=== PATIENT | female | born 1985 | race African-American/Black ===

== ENCOUNTER 2016-04-02 17:01 | Emergency (ER) | payer OTHER ==
[2016-04-02] MEDS ORDERED: FLUCONAZOLE 100 MG TABLET PO STA (17:23)
[2016-04-02] MEDS ORDERED: FLUCONAZOLE 100 MG TABLET PO ONE (17:26)
== END 2016-04-02 17:31 | disposition home or self-care (01) ==
DX: B37.3 Candidiasis of vulva and vagina (principal)
CPT/HCPCS: 99283; A9270

== ENCOUNTER 2016-08-09 06:47 | Emergency (ER) | payer OTHER ==
[2016-08-09] MEDS ORDERED: cefTRIAXone 1 GM in SODIUM CHLORIDE 0.9% MINIBAG 100 ML IV STA (08:57)
[2016-08-09] MEDS ORDERED: cefTRIAXone 1 GM VIAL ONE (09:01)
[2016-08-09] MEDS ORDERED: SODIUM CHLORIDE 0.9% 1,000 ML IV ONE (09:03)
== END 2016-08-09 11:14 | disposition home or self-care (01) ==
DX: O23.11 Infections of bladder in pregnancy, first trimester (principal); Z3A.13 13 weeks gestation of pregnancy; R11.2 Nausea with vomiting, unspecified

== ENCOUNTER 2017-10-30 15:27 | Emergency (ER) | payer OTHER ==
[2017-10-30 16:09] LABS: BASOPHILS % (AUTO) 0.6 %; EOSINOPHILS # (AUTO) 0.1 10^3/uL (0.0-0.7); EOSINOPHILS % (AUTO) 0.7 %; HGB - HEMOGLOBIN 11.8 g/dL (12.0-16.0); LYMPHOCYTES # (AUTO) 2.1 10^3/uL (1.5-3.5); LYMPHOCYTES % (AUTO) 27.5 %; MEAN CORPUSCULAR HEMOGLOBIN 27.6 pg (27.0-31.0); MEAN CORPUSCULAR HGB CONC 32.1 g/dL (32.0-36.0); MEAN PLATELET VOLUME 6.6 fL (7.9-10.8); MONOCYTES # (AUTO) 0.6 10^3/uL (0.0-1.0); MONOCYTES % (AUTO) 7.4 %; NEUTROPHILS # (AUTO) 4.8 10^3/uL (1.5-6.6); NEUTROPHILS % (AUTO) 63.8 %; PLT - PLATELET COUNT 323 10^3/uL (130-450); RED BLOOD COUNT 4.27 10^6/uL (4.20-5.40); RED CELL DISTRIBUTION WIDTH 13.4 % (12.0-15.0); WHITE BLOOD COUNT 7.5 x10^3/uL (4.8-10.8)
[2017-10-30 16:24] LABS: ALBUMIN 3.9 g/dL (3.2-5.5); ALBUMIN/GLOBULIN RATIO 1.1 (1.0-2.2); BILIRUBIN,TOTAL 0.5 mg/dL (0.2-1.0); CALCIUM 8.6 mg/dL (8.5-10.3); CREATININE 0.9 mg/dL (0.4-1.0); TOTAL PROTEIN 7.4 g/dL (6.7-8.2)
[2017-10-30 17:21] LABS: GLUCOSE, URINE (UA) NEGATIVE (NEGATIVE); KETONES,URINE (UA) 15 mg/dL (NEGATIVE); LEUKOCYTE ESTERASE, URINE NEGATIVE (NEGATIVE); NITRITE,URINE NEGATIVE (NEGATIVE); OCCULT BLOOD,URINE LARGE (NEGATIVE); PROTEIN,URINE 30 mg/dL (NEGATIVE); UROBILINOGEN,URINE 1 (NORMAL) E.U./dL (NORMAL)
[2017-10-30 17:37] LABS: BILIRUBIN,URINE NEGATIVE (NEGATIVE); CLARITY,URINE HAZY (CLEAR); HCG UR QUAL POSITIVE; ICTOTEST,URINE NEGATIVE
[2017-10-30 17:43] LABS: BACTERIA,URINE Rare /HPF (None Seen); RBC,URINE TNTC /HPF (0-5); SQUAMOUS EPITHELIAL CELL,UR MANY Squamous (<= Few)
--- NOTE | 2017-10-30 17:43 | ED Physician Documentation ---
PD HPI FEMALE - Stated complaint Stated Complaint: FEM - Chief complaint Chief Complaint: Abd Pain - History obtained from History obtained from: Patient, Family - History of Present Illness Timing - onset: Today Timing - duration: Days (1) Timing - details: Abrupt onset Pain level max: 0 Pain level max: 0 Associated symptoms: Vaginal bleeding (cramping earlier and heavy bleeding this am. Now resolved). 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) Recently seen: Not recently seen Review of Systems Ten Systems: 10 systems reviewed and negative Constitutional: denies: Fever, Chills Ears: denies: Ear pain Nose: denies: Rhinorrhea / runny nose, Congestion Throat: denies: Sore throat Respiratory: denies: Cough GI: denies: Abdominal Pain, Nausea, Vomiting, Diarrhea : denies: Dysuria, Frequency, Hesitancy Skin: denies: Rash Musculoskeletal: denies: Neck pain, Back pain Neurologic: denies: Headache PD PAST MEDICAL HISTORY - Past Medical History 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: Other Derm: Eczema - Past Surgical History Past Surgical History: No - Present Medications Home Medications: Ambulatory Orders Medication Instructions Recorded Confirmed Nitrofurantoin [Macrobid] 100 mg PO BID #10 capsule 08/09/16 - Allergies Allergies/Adverse Reactions: Allergies Allergy/AdvReac Type Severity Reaction Status Date / Time No Known Drug Allergies Allergy Verified 03/15/15 17:15 - Social History Does the pt smoke?: No Smoking Status: Never smoker Does the pt drink ETOH?: No Does the pt have substance abuse?: No - Immunizations Immunizations are current?: Yes - POLST Patient has POLST: No PD ED PE NORMAL - Vitals Vital signs reviewed: Yes - General General: Alert and oriented X 3, No acute distress - HEENT HEENT: Moist mucous membranes - Neck Neck: Supple, no meningeal sign - Cardiac Cardiac: RRR, Strong equal pulses - Respiratory Respiratory: No respiratory distress, Clear bilaterally - Abdomen Abdomen: Soft, Non tender, Non distended - Female Female : Pt declined - Back Back: No spinal TTP - Derm Derm: Warm and dry - Extremities Extremities: No edema - Neuro Neuro: Alert and oriented X 3 - Psych Psych: Normal mood, Normal affect Results - Vitals Vitals: Vital Signs - 24 hr 10/30/17 10/30/17 10/30/17 15:39 17:49 18:50 Temperature 36.6 C Heart Rate 83 69 67 Respiratory 18 14 14 Rate Blood Pressure 129/79 136/97 H 123/87 H O2 Saturation 99 97 100 Oxygen O2 Source Room air - Labs Labs: Laboratory Tests 10/30/17 10/30/17 10/30/17 16:05 16:05 16:05 WBC 7.5 RBC 4.27 Hgb 11.8 L Hct 36.8 L MCV 86.0 MCH 27.6 MCHC 32.1 RDW 13.4 Plt Count 323 MPV 6.6 L Neut # (Auto) 4.8 Lymph # (Auto) 2.1 [place] # (Auto) 0.6 Eos # (Auto) 0.1 Baso # (Auto) 0.0 Absolute Nucleated RBC 0.00 Nucleated RBC % 0.1 Sodium 136 Potassium 3.8 Chloride 102 Carbon Dioxide 26 Anion Gap 8.0 BUN 8 Creatinine 0.9 Estimated GFR (MDRD) 88 L Glucose 105 H Calcium 8.6 Total Bilirubin 0.5 AST 29 ALT 21 Alkaline Phosphatase 83 Total Protein 7.4 Albumin 3.9 Globulin 3.5 Albumin/Globulin Ratio 1.1 Lipase 19 L HCG, Quant 120.33 Urine Color Urine Clarity Urine pH Ur Specific [place] Urine Protein Urine Glucose (UA) Urine Ketones Urine Occult Blood Urine Nitrite Urine Bilirubin Urine Urobilinogen Ur Leukocyte Esterase Urine RBC Urine WBC Ur Squamous Epith Cells Urine Bacteria Ur Microscopic Review Urine Culture Comments Urine HCG, Qual 10/30/17 17:16 WBC RBC Hgb Hct MCV MCH MCHC RDW Plt Count MPV Neut # (Auto) Lymph # (Auto) [place] # (Auto) Eos # (Auto) Baso # (Auto) Absolute Nucleated RBC Nucleated RBC % Sodium Potassium Chloride Carbon Dioxide Anion Gap BUN Creatinine Estimated GFR (MDRD) Glucose Calcium Total Bilirubin AST ALT Alkaline Phosphatase Total Protein Albumin Globulin Albumin/Globulin Ratio Lipase HCG, Quant Urine Color YELLOW Urine Clarity HAZY Urine pH 6.0 Ur Specific [place] >=1.030 H Urine Protein 30 H Urine Glucose (UA) NEGATIVE Urine Ketones 15 H Urine Occult Blood LARGE H Urine Nitrite NEGATIVE Urine Bilirubin NEGATIVE Urine Urobilinogen 1 (NORMAL) Ur Leukocyte Esterase NEGATIVE Urine RBC TNTC H Urine WBC 6-10 H Ur Squamous Epith Cells MANY Squamous H Urine Bacteria Rare Ur Microscopic Review INDICATED Urine Culture Comments NOT INDICATED Urine HCG, Qual POSITIVE - Rads (name of study) pelvic US Radiology: Prelim report reviewed, EMP read contemporaneously, See rad report ( No evidence for an intrauterine . 2. No evidence for an ectopic . An ectopic is not excluded. Follow-up is recommended. Correlate with serial beta hCGs. 3. Minimal simple-appearing free fluid seen in the right adnexa adjacent to the right ovary. ) PD MEDICAL DECISION MAKING - ED course Complexity details: reviewed results, re-evaluated patient, considered differential, d/w patient, d/w family ED course: Patient is a 31-year-old female who presents to the emergency department with vaginal bleeding today. She does have a minimally elevated hCG. No evidence of IUP on ultrasound. Ectopic precautions given at bedside the patient and family. Likely that she is miscarrying. We will have her follow-up closely with her doctor for further evaluation and care. Patient counseled regarding signs and symptoms for which I believe and urgent re-evaluation would be necessary. Patient with good understanding of and agreement to plan and is comfortable going home at this time This document was made in part using voice recognition software. While efforts are made to proofread this document, sound alike and grammatical errors may occur. - Sepsis Event Vital Signs: Vital Signs - 24 hr 10/30/17 10/30/17 10/30/17 15:39 17:49 18:50 Temperature 36.6 C Heart Rate 83 69 67 Respiratory 18 14 14 Rate Blood Pressure 129/79 136/97 H 123/87 H O2 Saturation 99 97 100 Oxygen O2 Source Room air Departure - Departure Disposition: 01 Home, Self Care Clinical Impression: Vaginal bleeding affecting early Condition: Good Instructions: ED Miscarriage Poss Follow-Up: your,doctor in 3 days for repeat HCG. [Other] Comments: Return if you worsen. Your HCG is 120 today. You should have this repeated in 3 -4 days with your doctor. Return especially for increased pain, bleeding, or fevers. Discharge Date/Time: 10/30/17 18:56
[2017-10-30 18:52] VITALS: BP 123/87
--- NOTE | 2017-10-30 19:01 | Ultrasound Report ---
Procedure Date: 10/30/2017 Accession Number: [id number] / [id number] Procedure: US - OB First Trimester CPT Code: FULL RESULT: EXAM: FIRST TRIMESTER OBSTETRIC ULTRASOUND (Less than 11 weeks) EXAM DATE: 10/30/2017 06:24 PM. CLINICAL HISTORY: Positive , vaginal bleeding. LMP: Not certain, question mid-August. COMPARISONS: None. TECHNIQUE: Transabdominal and transvaginal ultrasound examination with static image documentation. ASSESSMENT: MATERNAL STRUCTURES: Uterus: Anteverted. Unremarkable. Endometrium measures 1 cm. No evidence for an intrauterine . Cervix: Closed. Right Ovary/Adnexa: Unremarkable. The ovary measures 3.8 x 2.2 x 2.4 cm, volume 10.5 cc. Left Ovary/Adnexa: Unremarkable. The ovary measures 3.1 x 1.5 x 2.7 cm, volume 6.6 cc. Free Fluid: Minimal simple-appearing free fluid seen in the right adnexa adjacent to the right ovary. Other: No evidence for an adnexal mass. IMPRESSION: 1. No evidence for an intrauterine . 2. No evidence for an ectopic . An ectopic is not excluded. Follow-up is recommended. Correlate with serial beta hCGs. 3. Minimal simple-appearing free fluid seen in the right adnexa adjacent to the right ovary. RADIA
== END 2017-10-30 18:56 | disposition home or self-care (01) ==
LOC: ED 15:27
DX: O20.9 Hemorrhage in early pregnancy, unspecified (principal)
CPT/HCPCS: 36415; 76801; 76817; 80053; 81001; 81003; 81025; 83690; 84702; 85025; 87086; 99283

== ENCOUNTER 2017-12-12 12:09 | Emergency (ER) | payer OTHER ==
--- NOTE | 2017-12-12 14:34 | ED Physician Documentation ---
PD HPI CHEST PAIN - Stated complaint Stated Complaint: CHEST PAIN - Chief complaint Chief Complaint: Cardiac - History obtained from History obtained from: Patient - History of Present Illness Timing - onset: Today (She was at work, she had just started eating lunch and she felt very sharp anterior central chest pain that was nonradiating. Lasted about 6 minutes. She was a little hot and short of breath while it happened and it resolved on its own. She never had this before. She feels fine now and has felt fine for the last couple of hours.) Review of Systems Constitutional: denies: Fever, Chills Cardiac: reports: Chest pain / pressure. 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 - Past Surgical History Past Surgical History: No - Present Medications Home Medications: Ambulatory Orders Medication Instructions Recorded Confirmed metFORMIN [Glucophage] 500 mg BID 12/12/17 12/12/17 - Allergies Allergies/Adverse Reactions: Allergies Allergy/AdvReac Type Severity Reaction Status Date / Time No Known Drug Allergies Allergy Verified 03/15/15 17:15 - Social History Does the pt smoke?: No Smoking Status: Never smoker Does the pt drink ETOH?: No Does the pt have substance abuse?: No - Immunizations Immunizations are current?: Yes - POLST Patient has POLST: No PD ED PE NORMAL - Vitals Vital signs reviewed: Yes - General General: Alert and oriented X 3, No acute distress - HEENT HEENT: Pharynx benign - Neck Neck: Supple, no meningeal sign, No bony TTP - Cardiac Cardiac: RRR, No murmur - Respiratory Respiratory: No respiratory distress, Clear bilaterally - Abdomen Abdomen: Non tender - Extremities Extremities: No edema, No calf tenderness / cord - Neuro Neuro: Alert and oriented X 3, Normal speech Results - Vitals Vitals: Vital Signs - 24 hr 12/12/17 12:12 Temperature 36.7 C Heart Rate 86 Respiratory 16 Rate Blood Pressure 137/92 H O2 Saturation 98 Oxygen O2 Source Room air - EKG (time done) 1217 Rate: Rate (enter#) (76) Rhythm: NSR [place]: Normal Intervals: Normal [place] QRS: Normal Ischemia: Normal ST segments Computer interpretation: Agree with computer PD MEDICAL DECISION MAKING - ED course ED course: 32-year-old woman with fleeting chest pain while eating with a nonischemic EKG and normal chest x-ray. She has been pain-free for several hours and no further workup is necessary. I considered pulmonary embolism in this patient. Clinically the pretest probability of pulmonary embolism is less than 15%. I applied to the PERC rules as follows: The patient's age is under 50, heart rate less than 100, oxygen saturation greater than 94%, the patient does not have a history of DVT or PE. Patient has no recent trauma or surgery. The patient has no hemoptysis. The patient is not on exogenous estrogens. The patient does not have clinical signs suggesting DVT. As such the patient ruled out for pulmonary embolism by PERC criteria. - Sepsis Event Vital Signs: Vital Signs - 24 hr 12/12/17 12:12 Temperature 36.7 C Heart Rate 86 Respiratory 16 Rate Blood Pressure 137/92 H O2 Saturation 98 Oxygen O2 Source Room air Departure - Departure Disposition: Home, Self Care Clinical Impression: Chest pain Qualifiers: Chest pain type: precordial pain Qualified Code(s): R07.2 - Precordial pain Condition: Good Record reviewed to determine appropriate education?: Yes Instructions: ED Chest Pain NonCardiac Comments: Call your doctor to arrange a follow-up appointment, make the next available appointment. In the interim, return anytime if worse or if new symptoms develop. Your blood pressure was elevated today on check into the emergency department. This does not mean that you have hypertension, it is a common phenomenon to come to the emergency department and have elevated blood pressure. I recommend that you see your primary care physician within the week to have it rechecked when you are feeling better. Forms: Activity restrictions
[2017-12-12 14:50] VITALS: BP 118/82
--- NOTE | 2017-12-12 14:58 | XRAY Report ---
Reason: sternal chest pain today Procedure Date: 12/12/2017 Accession Number: [id number] / [id number] Procedure: XR - Chest 2 View X-Ray CPT Code: 06405 FULL RESULT: EXAM: CHEST RADIOGRAPHY EXAM DATE: 12/12/2017 01:59 PM. CLINICAL HISTORY: Sternal chest pain today. COMPARISON: None. TECHNIQUE: 2 views. FINDINGS: Lungs/Pleura: No focal opacities evident. No pleural effusion. No pneumothorax. Normal volumes. Mediastinum: Heart and mediastinal contours are unremarkable. IMPRESSION: No evidence of acute thoracic process RADIA
== END 2017-12-12 14:50 | disposition home or self-care (01) ==
LOC: ED 12:09
DX: R07.2 Precordial pain (principal); R03.0 Elevated blood-pressure reading, without diagnosis of hypertension
CPT/HCPCS: 71046; 93005; 99283

== ENCOUNTER 2018-03-12 20:30 | Emergency (ER) | payer OTHER ==
--- NOTE | 2018-03-12 21:18 | ED Physician Documentation ---
PD HPI FEMALE - Stated complaint Stated Complaint: FEM - Chief complaint Chief Complaint: Abd Pain - History obtained from History obtained from: Patient - History of Present Illness Timing - onset: How many months ago (4-5) Timing - duration: Months Timing - details: Gradual onset, Still present, Waxing and waning Associated symptoms: Vaginal pain (intermittent cramping), Vaginal bleeding. No: Vaginal discharge Contributing factors: Depo (had depo shot 5 months ago and had regular bleeding after it. Opted to not get next Depo shot 2 months ago. Has these episodes regularly with her having cramping pains. She was told by her PCP that her periods would normalize but the irrregularity has persisted.). No: , Exposed to STD OB-PCT History: Other (PCOS) Review of Systems Constitutional: denies: Fever, Chills Nose: denies: Rhinorrhea / runny nose, Congestion Throat: denies: Sore throat Respiratory: denies: Cough GI: denies: Vomiting, Diarrhea : reports: Dysuria. denies: Hesitancy Skin: denies: Rash, Lesions Musculoskeletal: denies: Neck pain, Back pain Neurologic: reports: Generalized weakness. denies: Focal weakness, Numbness PD PAST MEDICAL HISTORY - Past Medical History Cardiovascular: None Respiratory: None Neuro: None PCT: Other Derm: Eczema - Past Surgical History Past Surgical History: No - Present Medications Home Medications: Ambulatory Orders Medication Instructions Recorded Confirmed metFORMIN [Glucophage] 500 mg BID 12/12/17 12/12/17 Naproxen 375 mg PO BID #20 tablet 03/12/18 Norethindrone AC-Eth Estradiol 1 each PO DAILY #1 packet 03/12/18 [Loestrin 21 1-20 Tablet] - Allergies Allergies/Adverse Reactions: Allergies Allergy/AdvReac Type Severity Reaction Status Date / Time No Known Drug Allergies Allergy Verified 03/12/18 20:45 - Social History Does the pt smoke?: No Smoking Status: Never smoker Does the pt drink ETOH?: No Does the pt have substance abuse?: No - Immunizations Immunizations are current?: Yes - POLST Patient has POLST: No PD ED PE NORMAL - Vitals Vital signs reviewed: Yes - General General: Alert and oriented X 3, No acute distress - HEENT HEENT: Pharynx benign - Neck Neck: Supple, no meningeal sign, No adenopathy - Cardiac Cardiac: RRR, No murmur - Respiratory Respiratory: Clear bilaterally - Female Female : Deferred - Rectal Rectal: Deferred - Back Back: No CVA TTP - Derm Derm: Normal color, Warm and dry - Neuro Neuro: Alert and oriented X 3, licensed audiologist 2-12 intact Eye Opening: Spontaneous Motor: Obeys Commands Verbal: Oriented GCS Score: 15 Results - Vitals Vitals: Oxygen O2 Source Room air - Labs Labs: Laboratory Tests 03/12/18 03/12/18 03/12/18 21:10 21:10 21:10 WBC 7.3 RBC 4.40 Hgb 12.0 Hct 36.9 L MCV 83.9 MCH 27.3 MCHC 32.6 RDW 12.9 Plt Count 356 MPV 7.1 L Neut # (Auto) 3.9 Lymph # (Auto) 2.6 [place] # (Auto) 0.6 Eos # (Auto) 0.1 Baso # (Auto) 0.1 Absolute Nucleated RBC 0.00 Nucleated RBC % 0.0 PT 11.6 INR 1.0 APTT 30.5 Sodium 137 Potassium 3.7 Chloride 105 Carbon Dioxide 26 Anion Gap 6.0 BUN 8 Creatinine 1.0 Estimated GFR (MDRD) 77 L Glucose 100 Calcium 9.0 Total Bilirubin 0.4 AST 19 ALT 18 Alkaline Phosphatase 91 Total Protein 7.5 Albumin 3.8 Globulin 3.7 Albumin/Globulin Ratio 1.0 Lipase 27 Urine Color Urine Clarity Urine pH Ur Specific [place] Urine Protein Urine Glucose (UA) Urine Ketones Urine Occult Blood Urine Nitrite Urine Bilirubin Urine Urobilinogen Ur Leukocyte Esterase Ur Microscopic Review Urine Culture Comments Urine HCG, Qual Blood Type Antibody Screen 03/12/18 03/12/18 21:10 21:50 WBC RBC Hgb Hct MCV MCH MCHC RDW Plt Count MPV Neut # (Auto) Lymph # (Auto) [place] # (Auto) Eos # (Auto) Baso # (Auto) Absolute Nucleated RBC Nucleated RBC % PT INR APTT Sodium Potassium Chloride Carbon Dioxide Anion Gap BUN Creatinine Estimated GFR (MDRD) Glucose Calcium Total Bilirubin AST ALT Alkaline Phosphatase Total Protein Albumin Globulin Albumin/Globulin Ratio Lipase Urine Color YELLOW Urine Clarity CLEAR Urine pH 5.5 Ur Specific [place] >=1.030 H Urine Protein NEGATIVE Urine Glucose (UA) NEGATIVE Urine Ketones NEGATIVE Urine Occult Blood TRACE-INTA Urine Nitrite NEGATIVE Urine Bilirubin NEGATIVE Urine Urobilinogen 0.2 (NORMAL) Ur Leukocyte Esterase NEGATIVE Ur Microscopic Review NOT INDICATED Urine Culture Comments NOT INDICATED Urine HCG, Qual NEGATIVE Blood Type A POSITIVE Antibody Screen NEGATIVE Departure - Departure Disposition: 01 Home, Self Care Clinical Impression: Dysfunctional uterine bleeding Condition: Stable Record reviewed to determine appropriate education?: Yes Instructions: ED Bleed Irregular Vaginal Follow-Up: NYASIA VAN MD [Primary Care Provider] - Prescriptions: Naproxen 375 mg PO BID #20 tablet Norethindrone AC-Eth Estradiol [Loestrin 21 1-20 Tablet] 1 each PO DAILY #1 packet Comments: Drink lots of fluids. Stay well-hydrated. Naproxen twice daily for the next 7- 10 days with food to help with some of the crampy pains. Take the oral contraceptive for a month or 2 to help try to reset your periods. Initially take 2 of the tablets out of the packet daily for the first 3 days and then finished the packet once a day as normal. Recheck if the bleeding has not decreased or stopped over the next week and it does not reset to a normal. Over the next month or 2. Discharge Date/Time: 03/12/18 22:15
[2018-03-12 21:20] LABS: BASOPHILS # (AUTO) 0.1 10^3/uL (0.0-0.1); BASOPHILS % (AUTO) 0.8 %; EOSINOPHILS # (AUTO) 0.1 10^3/uL (0.0-0.7); LYMPHOCYTES # (AUTO) 2.6 10^3/uL (1.5-3.5); LYMPHOCYTES % (AUTO) 36.4 %; MEAN CORPUSCULAR HEMOGLOBIN 27.3 pg (27.0-31.0); MEAN CORPUSCULAR HGB CONC 32.6 g/dL (32.0-36.0); MEAN CORPUSCULAR VOLUME 83.9 fL (81.0-99.0); MEAN PLATELET VOLUME 7.1 fL (7.9-10.8); MONOCYTES # (AUTO) 0.6 10^3/uL (0.0-1.0); MONOCYTES % (AUTO) 7.8 %; NEUTROPHILS # (AUTO) 3.9 10^3/uL (1.5-6.6); PLT - PLATELET COUNT 356 10^3/uL (130-450); RED CELL DISTRIBUTION WIDTH 12.9 % (12.0-15.0); WHITE BLOOD COUNT 7.3 x10^3/uL (4.8-10.8)
[2018-03-12 21:25] LABS: PT - PROTHROMBIN TIME 11.6 secs (9.9-12.6)
[2018-03-12 21:34] LABS: ALBUMIN 3.8 g/dL (3.2-5.5); BILIRUBIN,TOTAL 0.4 mg/dL (0.2-1.0); TOTAL PROTEIN 7.5 g/dL (6.7-8.2)
[2018-03-12] MEDS ORDERED: IBUPROFEN 600 MG TABLET PO STA (21:46)
[2018-03-12 21:57] LABS: BILIRUBIN,URINE NEGATIVE (NEGATIVE); GLUCOSE, URINE (UA) NEGATIVE (NEGATIVE); KETONES,URINE (UA) NEGATIVE (NEGATIVE); LEUKOCYTE ESTERASE, URINE NEGATIVE (NEGATIVE); NITRITE,URINE NEGATIVE (NEGATIVE); OCCULT BLOOD,URINE TRACE-INTA (NEGATIVE); PH,URINE 5.5 PH (5.0-7.5); PROTEIN,URINE NEGATIVE (NEGATIVE); UROBILINOGEN,URINE 0.2 (NORMAL) E.U./dL (NORMAL)
[2018-03-12 22:00] LABS: CLARITY,URINE CLEAR (CLEAR)
[2018-03-12 22:03] LABS: HCG UR QUAL NEGATIVE
[2018-03-12 22:31] VITALS: BP 128/78
== END 2018-03-12 22:15 | disposition home or self-care (01) ==
LOC: ED 20:30
DX: N93.8 Other specified abnormal uterine and vaginal bleeding (principal)
CPT/HCPCS: 36415; 80053; 81003; 81025; 83690; 85025; 85610; 85730; 86850; 86900; 86901; 99283; A9270; 81001; 87086

== ENCOUNTER 2019-11-28 14:54 | Emergency (ER) | payer OTHER ==
[2019-11-28 15:28] LABS: BASOPHILS # (AUTO) 0.1 10^3/uL (0.0-0.1); BASOPHILS % (AUTO) 0.6 %; EOSINOPHILS # (AUTO) 0.1 10^3/uL (0.0-0.7); EOSINOPHILS % (AUTO) 0.9 %; HGB - HEMOGLOBIN 11.6 g/dL (12.0-16.0); LYMPHOCYTES # (AUTO) 2.8 10^3/uL (1.5-3.5); LYMPHOCYTES % (AUTO) 33.1 %; MEAN CORPUSCULAR HEMOGLOBIN 27.8 pg (27.0-31.0); MEAN CORPUSCULAR HGB CONC 32.8 g/dL (32.0-36.0); MEAN CORPUSCULAR VOLUME 84.9 fL (81.0-99.0); MEAN PLATELET VOLUME 9.1 fL (7.9-10.8); MONOCYTES # (AUTO) 0.6 10^3/uL (0.0-1.0); PLT - PLATELET COUNT 355 10^3/uL (130-450); RED BLOOD COUNT 4.17 10^6/uL (4.20-5.40); RED CELL DISTRIBUTION WIDTH 12.8 % (12.0-15.0); WHITE BLOOD COUNT 8.5 x10^3/uL (4.8-10.8)
[2019-11-28 15:38] LABS: INR 1.1 (0.8-1.2); PT - PROTHROMBIN TIME 12.9 secs (9.9-12.6)
[2019-11-28 15:42] LABS: ALBUMIN 3.6 g/dL (3.2-5.5); BILIRUBIN,TOTAL 0.3 mg/dL (0.2-1.0); CALCIUM 9.5 mg/dL (8.5-10.3); CREATININE 0.9 mg/dL (0.4-1.0); TOTAL PROTEIN 7.3 g/dL (6.7-8.2)
[2019-11-28 15:46] LABS: PARTIAL THROMBOPLASTIN TIME 31.3 secs (24.9-33.3)
[2019-11-28 16:55] LABS: BILIRUBIN,URINE NEGATIVE (NEGATIVE); GLUCOSE, URINE (UA) NEGATIVE (NEGATIVE); KETONES,URINE (UA) NEGATIVE (NEGATIVE); LEUKOCYTE ESTERASE, URINE NEGATIVE (NEGATIVE); NITRITE,URINE NEGATIVE (NEGATIVE); OCCULT BLOOD,URINE NEGATIVE (NEGATIVE); PROTEIN,URINE NEGATIVE (NEGATIVE); UROBILINOGEN,URINE 0.2 (NORMAL) E.U./dL (NORMAL)
[2019-11-28 16:59] LABS: CLARITY,URINE CLEAR (CLEAR); HCG UR QUAL POSITIVE
--- NOTE | 2019-11-28 17:26 | ED Physician Documentation ---
History of Present Illness - Stated complaint Stated Complaint: FEMALE - Chief complaint Chief Complaint: General - History obtained from History obtained from: Patient - Additonal information Additional information: Patient comes emergency department complaining of bright red blood with stooling. She states that she has not had any abdominal pain. She has had pain around her anal area. She has been constipated because she is on vitamins. Patient is 8 weeks . Patient denies any nausea or vomiting. No lightheadedness or dizziness. No bleeding in between bowel movements. No vaginal bleeding. No other complaints at this time. Review of Systems Ten Systems: 10 systems reviewed and negative Constitutional: reports: Reviewed and negative Eyes: reports: Reviewed and negative Ears: reports: Reviewed and negative Nose: reports: Reviewed and negative Throat: reports: Reviewed and negative Cardiac: reports: Reviewed and negative Respiratory: reports: Reviewed and negative GI: reports: Bloody / black stool : reports: Reviewed and negative Skin: reports: Reviewed and negative Musculoskeletal: reports: Reviewed and negative Neurologic: reports: Reviewed and negative Psychiatric: reports: Reviewed and negative Endocrine: reports: Reviewed and negative Immunocompromised: reports: Reviewed and negative PD PAST MEDICAL HISTORY - Past Medical History Cardiovascular: None Respiratory: None Neuro: None Endocrine/Autoimmune: None GI: None 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), Other : None HEENT: None Psych: None Musculoskeletal: None Derm: Eczema Other Past Medical History: 8 weeks - Past Surgical History Past Surgical History: No - Present Medications Home Medications: Ambulatory Orders Medication Instructions Recorded Confirmed metFORMIN [Glucophage] 500 mg BID 12/12/17 12/12/17 Naproxen 375 mg PO BID #20 tablet 03/12/18 Norethindrone AC-Eth Estradiol 1 each PO DAILY #1 packet 03/12/18 [Loestrin 21 1-20 Tablet] - Allergies Allergies/Adverse Reactions: Allergies Allergy/AdvReac Type Severity Reaction Status Date / Time No Known Drug Allergies Allergy Verified 11/28/19 15:05 - Social History Does the pt smoke?: No Smoking Status: Never smoker Does the pt drink ETOH?: No Does the pt have substance abuse?: No - Immunizations Immunizations are current?: Yes - POLST Patient has POLST: No PD ED PE NORMAL - Vitals Vital signs reviewed: Yes - General General: Alert and oriented X 3, No acute distress - HEENT HEENT: Atraumatic, PERRL, EOMI, Moist mucous membranes - Neck Neck: Supple, no meningeal sign - Cardiac Cardiac: RRR, No murmur - Respiratory Respiratory: No respiratory distress, Clear bilaterally - Abdomen Abdomen: Soft, Non tender, Non distended - Derm Derm: Normal color, Warm and dry, No rash - Extremities Extremities: No deformity, No edema, No calf tenderness / cord - Neuro Neuro: Alert and oriented X 3, Other (Grossly intact) - Psych Psych: Normal mood, Normal affect Results - Vitals Vitals: Oxygen O2 Source Room air - Labs Labs: Laboratory Tests 11/28/19 11/28/19 11/28/19 15:21 15:21 15:21 WBC 8.5 RBC 4.17 L Hgb 11.6 L Hct 35.4 L MCV 84.9 MCH 27.8 MCHC 32.8 RDW 12.8 Plt Count 355 MPV 9.1 Neut # (Auto) 5.0 Lymph # (Auto) 2.8 [place] # (Auto) 0.6 Eos # (Auto) 0.1 Baso # (Auto) 0.1 Absolute Nucleated RBC 0.00 Nucleated RBC % 0.0 PT 12.9 H INR 1.1 APTT 31.3 Sodium 135 Potassium 3.8 Chloride 102 Carbon Dioxide 22 Anion Gap 11.0 BUN 6 Creatinine 0.9 Estimated GFR (MDRD) 86 L Glucose 102 H Calcium 9.5 Total Bilirubin 0.3 AST 20 ALT 20 Alkaline Phosphatase 63 Total Protein 7.3 Albumin 3.6 Globulin 3.7 Albumin/Globulin Ratio 1.0 Lipase 29 Urine Color Urine Clarity Urine pH Ur Specific [place] Urine Protein Urine Glucose (UA) Urine Ketones Urine Occult Blood Urine Nitrite Urine Bilirubin Urine Urobilinogen Ur Leukocyte Esterase Ur Microscopic Review Urine Culture Comments Urine HCG, Qual 11/28/19 16:40 WBC RBC Hgb Hct MCV MCH MCHC RDW Plt Count MPV Neut # (Auto) Lymph # (Auto) [place] # (Auto) Eos # (Auto) Baso # (Auto) Absolute Nucleated RBC Nucleated RBC % PT INR APTT Sodium Potassium Chloride Carbon Dioxide Anion Gap BUN Creatinine Estimated GFR (MDRD) Glucose Calcium Total Bilirubin AST ALT Alkaline Phosphatase Total Protein Albumin Globulin Albumin/Globulin Ratio Lipase Urine Color YELLOW Urine Clarity CLEAR Urine pH 6.0 Ur Specific [place] 1.025 Urine Protein NEGATIVE Urine Glucose (UA) NEGATIVE Urine Ketones NEGATIVE Urine Occult Blood NEGATIVE Urine Nitrite NEGATIVE Urine Bilirubin NEGATIVE Urine Urobilinogen 0.2 (NORMAL) Ur Leukocyte Esterase NEGATIVE Ur Microscopic Review NOT INDICATED Urine Culture Comments NOT INDICATED Urine HCG, Qual POSITIVE PD MEDICAL DECISION MAKING - ED course Complexity details: reviewed results, re-evaluated patient, considered differential, d/w patient ED course: Discussed with patient that she most likely either has hemorrhoids or an anal fissure. We have discussed home management of symptoms and the self-limited nature of these conditions. I have advised patient regarding [id number] hemorrhoidal remedies. We have also discussed how to soften stools naturally with a higher fiber diet. Patient already has plans to follow-up with OB. We have discussed the usual indications for return. Departure - Departure Disposition: 01 Home, Self Care Clinical Impression: Hematochezia Condition: Stable Instructions: ED Fissure Anal Ch, ED Hemorrhoids Discharge Date/Time: 11/28/19 17:31
[2019-11-28 17:31] VITALS: BP 120/73
== END 2019-11-28 17:31 | disposition home or self-care (01) ==
LOC: ED 14:54
DX: O99.611 Diseases of the digestive system complicating pregnancy, first trimester (principal); K92.1 Melena; Z3A.08 8 weeks gestation of pregnancy
CPT/HCPCS: 36415; 80053; 81001; 81003; 81025; 83690; 85025; 85610; 85730; 87086; 99282; 99283

== ENCOUNTER 2020-01-04 16:18 | Emergency (ER) | payer OTHER ==
--- NOTE | 2020-01-04 17:56 | ED Physician Documentation ---
History of Present Illness - Stated complaint Stated Complaint: PREG, SPOTTING - Chief complaint Chief Complaint: Abd Pain - History obtained from History obtained from: Patient - History of Present Illness Timing: Today Pain level max: 0 Pain level now: 0 - Additonal information Additional information: Patient states that she is . She is unsure how far along she is. She saw her doctor at the [facility], she states that her hCG was approximately 12,000 at that time. They repeated it 2 days later, it was down to 9000. She states that she was told "sometimes it goes back up". Today she started having spotting. No abdominal or pelvic pain. 4 para 2 Review of Systems Constitutional: denies: Fever, Chills Cardiac: denies: Chest pain / pressure Respiratory: denies: Cough GI: denies: Vomiting, Diarrhea Skin: denies: Rash Musculoskeletal: denies: Neck pain, Back pain Neurologic: denies: Headache PD PAST MEDICAL HISTORY - Past Medical History Past Medical History: Yes Cardiovascular: None Respiratory: None Neuro: None Endocrine/Autoimmune: None GI: None PIPEMAN: Miscarriage(s), Other : None HEENT: None Psych: None Musculoskeletal: None Derm: Eczema - Past Surgical History Past Surgical History: No - Present Medications Home Medications: Ambulatory Orders Medication Instructions Recorded Confirmed metFORMIN [Glucophage] 500 mg BID 12/12/17 12/12/17 Pnv No.95/Ferrous Fum/Folic AC 1 each PO DAILY 01/04/20 01/04/20 [ Formula] - Allergies Allergies/Adverse Reactions: Allergies Allergy/AdvReac Type Severity Reaction Status Date / Time No Known Drug Allergies Allergy Verified 01/04/20 16:30 - Social History Does the pt smoke?: No Smoking Status: Never smoker Does the pt drink ETOH?: No Does the pt have substance abuse?: No - Immunizations Immunizations are current?: Yes - POLST Patient has POLST: No PD ED PE NORMAL - Vitals Vital signs reviewed: Yes - General General: Alert and oriented X 3, No acute distress - HEENT HEENT: Moist mucous membranes - Neck Neck: Supple, no meningeal sign - Cardiac Cardiac: RRR - Respiratory Respiratory: No respiratory distress, Clear bilaterally - Abdomen Abdomen: Soft, Non tender, Non distended - Derm Derm: Warm and dry - Extremities Extremities: No edema - Neuro Neuro: Alert and oriented X 3 - Psych Psych: Normal mood, Normal affect Results - Vitals Vitals: Vital Signs - 24 hr 01/04/20 01/04/20 16:26 18:15 Temperature 36.7 C 37.0 C Heart Rate 88 75 Respiratory 12 18 Rate Blood Pressure 125/68 108/74 O2 Saturation 100 100 Oxygen O2 Source Room air - Labs Labs: Laboratory Tests 01/04/20 16:44 HCG, Quant 1544.00 PD MEDICAL DECISION MAKING - ED course Complexity details: reviewed results, re-evaluated patient, considered differential, d/w patient ED course: Bedside ultrasound reveals a uterus that has an irregular small gestational sac, approximately 5 weeks 3 days, no pole. Her hCG is down to 1500. Appears to be having a miscarriage. We will have her follow-up with the [facility] for further care. She will need to ensure that her hCG trends to 0 as well. No evidence of ectopic . No pain. Patient counseled regarding signs and symptoms for which I believe and urgent re-evaluation would be necessary. Patient with good understanding of and agreement to plan and is comfortable going home at this time This document was made in part using voice recognition software. While efforts are made to proofread this document, sound alike and grammatical errors may occur. Departure - Departure Disposition: 01 Home, Self Care Clinical Impression: Miscarriage Condition: Good Instructions: ED Miscarriage Incom Follow-Up: TIMMY CHEUNG [Primary Care Provider] - Within 1 week Comments: It is important to follow your quantitative hCG until it reaches 0. We need to ensure that the miscarriage is passed. Follow-up with your doctor for further care. Discharge Date/Time: 01/04/20 18:54
[2020-01-04 18:15] VITALS: BP 108/74
== END 2020-01-04 18:54 | disposition home or self-care (01) ==
LOC: ED 16:18
DX: O03.9 Complete or unspecified spontaneous abortion without complication (principal)
CPT/HCPCS: 36415; 84702; 99283

== ENCOUNTER 2020-04-23 08:00 | Outpatient (CLI) | payer OTHER ==
[2020-04-23 17:22] LABS: MUDS CUTOFF CONCENTRATIONS CUTOFF CONC BELOW:
[2020-04-23 17:31] LABS: BILIRUBIN,URINE NEGATIVE (NEGATIVE); GLUCOSE, URINE (UA) NEGATIVE (NEGATIVE); KETONES,URINE (UA) NEGATIVE (NEGATIVE); LEUKOCYTE ESTERASE, URINE NEGATIVE (NEGATIVE); NITRITE,URINE NEGATIVE (NEGATIVE); OCCULT BLOOD,URINE NEGATIVE (NEGATIVE); PROTEIN,URINE NEGATIVE (NEGATIVE); UROBILINOGEN,URINE 0.2 (NORMAL) E.U./dL (NORMAL)
[2020-04-23 17:32] LABS: CLARITY,URINE CLOUDY (CLEAR)
[2020-04-23 17:41] LABS: RBC,URINE None Seen /HPF (0-5)
[2020-04-23 17:42] LABS: AMORPHOUS SEDIMENT,UR Marked /LPF; BACTERIA,URINE Rare /HPF (None Seen); SQUAMOUS EPITHELIAL CELL,UR FEW Squamous (<= Few)
[2020-04-23 17:43] LABS: AMPHETAMINE SCREEN,URINE NEGATIVE (NEGATIVE); BENZODIAZEPINES SCREEN, URINE NEGATIVE (NEGATIVE); COCAINE SCREEN URINE NEGATIVE (NEGATIVE); METHADONE SCREEN, URINE NEGATIVE (NEGATIVE); METHAMPHETAMINES SCREEN, URINE NEGATIVE (NEGATIVE); OPIATE SCREEN, URINE NEGATIVE (NEGATIVE); OXYCODONE SCREEN, URINE NEGATIVE (NEGATIVE); PROPOXYPHENE SCREEN, URINE NEGATIVE (NEGATIVE); TRICYCLIC ANTIDEPRESSANT,URINE NEGATIVE (NEGATIVE)
== END 2020-04-23 23:59 | disposition home or self-care (01) ==
LOC: LAB.R 08:00
PROVIDERS: ATTEND Nurse Practitioner Obstetrics & Gynecology
DX: Z32.01 Encounter for pregnancy test, result positive (principal)
CPT/HCPCS: 80306; 81001; 87086

== ENCOUNTER 2020-04-30 15:00 | Outpatient (CLI) | payer OTHER ==
--- NOTE | 2020-04-30 16:53 | Ultrasound Report ---
PROCEDURE: OB First Trimester w/TV INDICATIONS: POSITIVE TEST OUTSIDE/PRIOR DATING DATA: Last menstrual period (LMP): 03/09/2020. LMP-based estimated date of delivery (SHAYY): 12/14/2020. First dating scan (date and location): 04/30/2020. Estimated date of delivery (SHAYY) from first dating scan: 12/20/2020. TECHNIQUE: Real-time scanning was performed of the fetus and maternal pelvic organs, with image documentation. Endovaginal scanning was also performed to better visualize the fetus and maternal ovaries. COMPARISON: None FINDINGS: Embryo: Single live intrauterine is identified with crown-rump length measuring 7 mm corre sponding to 6 weeks 4 days. heart tones identified at 126 bpm. Measurement variability in dating: +/- 4 weeks by LMP, +/- 7 days by mean sac diameter (use before 6 weeks gestation if crown-rump length not able to be measured), +/- 5 days by crown-rump length (6-12 weeks gestation). Maternal organs: Ovaries demonstrate a right corpus luteal cyst measuring 30 x 22 x 30 mm. There is appearance of heterogeneous echogenicity in the posterior aspect of the cervix measuring 9 x 6 mm not well seen on all views. Trace appearance of fluid is noted adjacent to the left ovary.. IMPRESSION: 1. Single comparison ultrasound gestational age today of 6 weeks 4 days coarse 9 to ultrasound SHAYY of 12/20/2020. 2. Focal area of heterogeneous echogenicity within the region of the cervix. Fibroid cannot be exclud ed. However, it is not well seen on current exam and attention to this region on follow-up imaging is recommended. Reviewed by: Priscila Espinoza MD on 04/30/2020 4:52 PM PST Approved by: Priscila Espinoza MD on 04/30/2020 4:52 PM PST Station ID: [id number]
== END 2020-04-30 15:01 | disposition home or self-care (01) ==
LOC: DI 15:00
PROVIDERS: ATTEND Nurse Practitioner Obstetrics & Gynecology
DX: O99.891 Other specified diseases and conditions complicating pregnancy (principal); R93.89 Abnormal findings on diagnostic imaging of other specified body structures; Z3A.01 Less than 8 weeks gestation of pregnancy

== ENCOUNTER 2020-05-13 10:27 | Outpatient (CLI) | payer OTHER ==
[2020-05-13 10:53] LABS: BASOPHILS % (AUTO) 0.5 %; EOSINOPHILS % (AUTO) 0.5 %; HGB - HEMOGLOBIN 12.3 g/dL (12.0-16.0); LYMPHOCYTES # (AUTO) 2.3 10^3/uL (1.5-3.5); LYMPHOCYTES % (AUTO) 28.2 %; MEAN CORPUSCULAR HEMOGLOBIN 26.7 pg (27.0-31.0); MEAN CORPUSCULAR HGB CONC 31.9 g/dL (32.0-36.0); MEAN CORPUSCULAR VOLUME 83.9 fL (81.0-99.0); MEAN PLATELET VOLUME 8.8 fL (7.9-10.8); MONOCYTES # (AUTO) 0.6 10^3/uL (0.0-1.0); MONOCYTES % (AUTO) 7.4 %; NEUTROPHILS % (AUTO) 63.1 %; PLT - PLATELET COUNT 364 10^3/uL (130-450); RED CELL DISTRIBUTION WIDTH 13.4 % (12.0-15.0)
[2020-05-13 21:47] LABS: TRICHOMONAS VAGINALIS DNA NEGATIVE (NEGATIVE)
[2020-05-14 13:42] LABS: HEPATITIS B SURFACE ANTIGEN NON-REACTIVE (NON-REACTIVE); HEPATITIS C ANTIBODY NON-REACTIVE (NON-REACTIVE)
[2020-05-14 14:57] LABS: HIV AG/AB 4TH GEN NON-REACTIVE (NON-REACTIVE)
== END 2020-05-13 10:28 | disposition home or self-care (01) ==
LOC: LAB 10:27
PROVIDERS: ATTEND Advanced Practice Midwife
DX: Z34.00 Encounter for supervision of normal first pregnancy, unspecified trimester (principal); Z36.89 Encounter for other specified antenatal screening
CPT/HCPCS: 36415; 81599; 85025; 86592; 86762; 86787; 86803; 86850; 86900; 86901; 87340; 87389; 87491; 87591; 87661

== ENCOUNTER 2020-05-30 08:18 | Emergency (ER) | payer OTHER ==
[2020-05-30] MEDS ORDERED: SODIUM CHLORIDE 0.9% 1,000 ML IV STA (08:38)
[2020-05-30] MEDS ORDERED: METOCLOPRAMIDE 10 MG/2 ML VIAL IVP STA (08:38)
[2020-05-30] MEDS ORDERED: diphenhydrAMINE INJ 50 MG/ML VIAL IVP STA (08:38)
--- NOTE | 2020-05-30 08:43 | ED Physician Documentation ---
PD HPI HEADACHE - Stated complaint Stated Complaint: HEADACHE - Chief complaint Chief Complaint: Neuro - History obtained from History obtained from: Patient - Additional information Additional information: at 10 weeks gestation has had 6 days of fairly constant bitemporal headache associated with very mild light sensitivity but no neck stiffness or fevers. There is no nausea. No pelvic pain, cramping, nor bleeding or fluid loss. No history of headaches per se, although I asked her if she tried anything for example Tylenol and her response was "Tylenol usually makes my headaches worse." When asked if she is under a lot of stress she says yes and agrees with the potential that her headache may be due to stress. 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: Miscarriage(s), Other : None HEENT: None Psych: None Musculoskeletal: None Derm: Eczema - Past Surgical History Past Surgical History: No - Present Medications Home Medications: Ambulatory Orders Medication Instructions Recorded Confirmed Pnv No.95/Ferrous Fum/Folic AC 1 each PO DAILY 01/04/20 05/30/20 [ Formula] Cyclobenzaprine [Flexeril] 10 mg PO TID PRN #20 tab 05/30/20 - Allergies Allergies/Adverse Reactions: Allergies Allergy/AdvReac Type Severity Reaction Status Date / Time No Known Drug Allergies Allergy Verified 05/30/20 08:21 - Social History Does the pt smoke?: No Smoking Status: Never smoker Does the pt drink ETOH?: No Does the pt have substance abuse?: No - Immunizations Immunizations are current?: Yes - POLST Patient has POLST: No PD ED PE NORMAL - Vitals Vital signs reviewed: Yes - General General: Alert and oriented X 3, No acute distress - HEENT HEENT: PERRL, EOMI - Neck Neck: Supple, no meningeal sign, No bony TTP - Abdomen Abdomen: Normal bowel sounds, Soft, Non tender, Other (Bedside ultrasound demonstrates single live intrauterine with a heart rate of 165) - Derm Derm: Normal color, Warm and dry - Extremities Extremities: No edema - Neuro Neuro: Alert and oriented X 3, unit manager 2-12 intact, No motor deficit, No sensory deficit, Normal speech Results - Vitals Vitals: Vital Signs - 24 hr 05/30/20 05/30/20 08:21 08:32 Temperature 37.1 C Heart Rate 84 88 Respiratory 16 16 Rate Blood Pressure 121/74 131/98 H O2 Saturation 98 99 Oxygen O2 Source Room air - Labs Labs: Laboratory Tests 05/30/20 05/30/20 08:45 08:45 WBC 8.8 RBC 4.26 Hgb 11.5 L Hct 34.9 L MCV 81.9 MCH 27.0 MCHC 33.0 RDW 13.8 Plt Count 325 MPV 8.9 Neut # (Auto) 5.5 Lymph # (Auto) 2.6 [place] # (Auto) 0.6 Eos # (Auto) 0.1 Baso # (Auto) 0.1 Absolute Nucleated RBC 0.00 Nucleated RBC % 0.0 Sodium 135 Potassium 3.8 Chloride 104 Carbon Dioxide 21 Anion Gap 10.0 BUN 5 L Creatinine 0.7 Estimated GFR (MDRD) 115 Glucose 111 H Calcium 9.1 Total Bilirubin 0.4 AST 17 ALT 14 Alkaline Phosphatase 60 Total Protein 7.1 Albumin 3.2 Globulin 3.9 Albumin/Globulin Ratio 0.8 L PD MEDICAL DECISION MAKING - ED course ED course: 34-year-old woman who presents with what sounds like a tension headache in . She is only 10 weeks so related conditions are considered but felt to be very unlikely. The history and physical is inconsistent with subarachnoid hemorrhage or meningitis. She felt much better after the administration of Reglan and Benadryl. Departure - Departure Disposition: 01 Home, Self Care Clinical Impression: Headache Qualifiers: Headache type: tension-type Headache chronicity pattern: acute headache Intractability: not intractable Qualified Code(s): G44.209 - Tension-type headache, unspecified, not intractable Condition: Good Record reviewed to determine appropriate education?: Yes Instructions: ED Headache Tension Prescriptions: Cyclobenzaprine [Flexeril] 10 mg PO TID PRN #20 tab PRN Reason: Spasms Comments: Follow-up with your OB and primary care physicians. Return if worsening or if new symptoms develop.
[2020-05-30 08:50] LABS: BASOPHILS # (AUTO) 0.1 10^3/uL (0.0-0.1); BASOPHILS % (AUTO) 0.6 %; EOSINOPHILS # (AUTO) 0.1 10^3/uL (0.0-0.7); EOSINOPHILS % (AUTO) 0.6 %; HCT - HEMATOCRIT 34.9 % (37.0-47.0); HGB - HEMOGLOBIN 11.5 g/dL (12.0-16.0); LYMPHOCYTES # (AUTO) 2.6 10^3/uL (1.5-3.5); LYMPHOCYTES % (AUTO) 29.2 %; MEAN CORPUSCULAR VOLUME 81.9 fL (81.0-99.0); MEAN PLATELET VOLUME 8.9 fL (7.9-10.8); MONOCYTES # (AUTO) 0.6 10^3/uL (0.0-1.0); MONOCYTES % (AUTO) 6.5 %; NEUTROPHILS # (AUTO) 5.5 10^3/uL (1.5-6.6); NEUTROPHILS % (AUTO) 62.9 %; PLT - PLATELET COUNT 325 10^3/uL (130-450); RED BLOOD COUNT 4.26 10^6/uL (4.20-5.40); RED CELL DISTRIBUTION WIDTH 13.8 % (12.0-15.0); WHITE BLOOD COUNT 8.8 x10^3/uL (4.8-10.8)
[2020-05-30 09:02] LABS: ALBUMIN 3.2 g/dL (3.2-5.5); ALBUMIN/GLOBULIN RATIO 0.8 (1.0-2.2); BILIRUBIN,TOTAL 0.4 mg/dL (0.2-1.0); CALCIUM 9.1 mg/dL (8.5-10.3); CREATININE 0.7 mg/dL (0.4-1.0); POTASSIUM 3.8 mmol/L (3.5-5.0); TOTAL PROTEIN 7.1 g/dL (6.7-8.2)
[2020-05-30 10:01] VITALS: BP 121/78
== END 2020-05-30 10:15 | disposition home or self-care (01) ==
LOC: ED 08:18
DX: O99.351 Diseases of the nervous system complicating pregnancy, first trimester (principal); G44.209 Tension-type headache, unspecified, not intractable; O09.521 Supervision of elderly multigravida, first trimester; Z3A.10 10 weeks gestation of pregnancy
CPT/HCPCS: 36415; 80053; 85025; 96361; 96374; 99283; 99284; J1200; J2765

== ENCOUNTER 2020-06-15 12:27 | Emergency (ER) | payer OTHER ==
[2020-06-15 12:36] VITALS: BP 108/80
--- NOTE | 2020-06-15 12:43 | ED Physician Documentation ---
History of Present Illness - Stated complaint Stated Complaint: RASH - Chief complaint Chief Complaint: General - History obtained from History obtained from: Patient - Additonal information Additional information: 2 months of itchy scaly rash the right side of the neck. She is 13 weeks . She thinks it is from stress. 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), Other : None HEENT: None Psych: None Musculoskeletal: None Derm: Eczema - Past Surgical History Past Surgical History: No - Present Medications Home Medications: Ambulatory Orders Medication Instructions Recorded Confirmed Pnv No.95/Ferrous Fum/Folic AC 1 each PO DAILY 01/04/20 06/15/20 [ Formula] Cyclobenzaprine [Flexeril] 10 mg PO TID PRN #20 tab 05/30/20 06/15/20 Triamcinolone 0.1% Oint 1 gm TOP BID #80 g 06/15/20 - Allergies Allergies/Adverse Reactions: Allergies Allergy/AdvReac Type Severity Reaction Status Date / Time No Known Drug Allergies Allergy Verified 06/15/20 12:43 - Social History Does the pt smoke?: No Smoking Status: Never smoker Does the pt drink ETOH?: No Does the pt have substance abuse?: No - Immunizations Immunizations are current?: Yes - POLST Patient has POLST: No PD ED PE NORMAL - Vitals Vital signs reviewed: Yes - General General: Alert and oriented X 3, No acute distress - Neck Neck: Other (palm sized area of eczema without superinfection on the right side of the low neck.) - Neuro Neuro: Alert and oriented X 3, Normal speech Results - Vitals Vitals: Vital Signs - 24 hr 06/15/20 12:33 Temperature 37 C Heart Rate 97 Respiratory 18 Rate Blood Pressure 108/80 O2 Saturation 99 Oxygen O2 Source Room air Departure - Departure Disposition: 01 Home, Self Care Clinical Impression: Eczema Qualifiers: Eczema type: unspecified Qualified Code(s): L30.9 - Dermatitis, unspecified Condition: Good Record reviewed to determine appropriate education?: Yes Instructions: ED Dermatitis Atopic Eczema Prescriptions: Triamcinolone 0.1% Oint 1 gm TOP BID #80 g Comments: Follow-up with your primary care physician, return for new or worsening symptoms.
== END 2020-06-15 12:55 | disposition home or self-care (01) ==
LOC: ED 12:27
DX: O99.711 Diseases of the skin and subcutaneous tissue complicating pregnancy, first trimester (principal); L30.9 Dermatitis, unspecified; Z3A.13 13 weeks gestation of pregnancy
CPT/HCPCS: 99282; 99283

== ENCOUNTER 2020-08-02 18:46 | Outpatient (CLI) | payer OTHER ==
--- NOTE | 2020-08-03 19:27 | Ultrasound Report ---
PROCEDURE: OB Detailed Eval INDICATIONS: SCREENING, SUPERVISION OF OUTSIDE/PRIOR DATING DATA: Last menstrual period (LMP): 03/09/2020. LMP-based estimated date of delivery (SHAYY): 12/14/2020. First dating scan (date and location): 04/30/2020. Estimated date of delivery (SHAYY) from first dating scan: 12/20/2020. TECHNIQUE: Real-time scanning was performed of the fetus, with image documentation and biometric measurements. COMPARISON: None. Findings: General: A single living intrauterine gestation is present. Presentation: Variable Placenta: Placental position is anterior, without previa. Amniotic fluid index: 18 cm, 81.7 percentile for gestational age. heart rate: 143 beats per minute. Maternal cervical canal: 3.86 cm long and is closed; normal length is 2.5 cm or more. biometrics: Biparietal diameter: 4.96 cm, 21 weeks, 0 day Head circumference: 18.3 cm, 20 weeks, 5 days Abdominal circumference: 16.7 cm, 21 weeks, 2 days Femur length: 3.4 cm, 20 weeks, 5 days Estimated gestational age from initial scan: 20 weeks, 0 day Composite gestational age from present scan: 20 weeks, 6 days Estimated weight and percentile: 392 g, 92.6 percentile. Measurement variability in biometric dating: +/- 10 days from 12-20 weeks gestation, +/- 2 weeks from 20-30 weeks gestation, +/- 3 weeks at 30 weeks gestation or later. Anatomic survey: Neuro: Ventricles are normal at less than 10 mm. Cisterna magna is normal at 3-11 mm. Cerebellum i s normal in size and morphology. Nuchal skin fold: Normal at less than 6 mm between 14 and 20 weeks gestational age. Face: Nose and lips, facial profile are normal. Spine: No evidence for spina bifida. Evaluation of spine is slightly limited due to position. Heart: 4-chambered heart is present, with normal ventricular outflow tracts. Diaphragm: Diaphragm is intact. Stomach: Left-sided stomach is present. Kidneys: No hydronephrosis. Normal is less than 5 mm in 2nd trimester, less than 7 mm in 3rd trimester. Cord: 3 vessel cord has orthotopic insertion. Bladder: Normal in size. Extremities: All 4 extremities are visualized. IMPRESSION: 1. Single live intrauterine with fetus in variable presentation. heart rate is 143 bp m. Normal amount of amniotic fluid. Normal growth. 2. Estimated weight is at 92.6 percentile. 3. Slightly Limited evaluation of spine due to position. Rest of anatomic survey is normal. Reviewed by: Asa Puente MD on 08/03/2020 7:26 PM PDT Approved by: Asa Puente MD on 08/03/2020 7:26 PM PDT Station ID: [id number]
== END 2020-08-02 18:47 | disposition home or self-care (01) ==
LOC: DI 18:46
PROVIDERS: ATTEND Advanced Practice Midwife
DX: Z34.00 Encounter for supervision of normal first pregnancy, unspecified trimester (principal); Z36.89 Encounter for other specified antenatal screening

== ENCOUNTER 2020-09-03 14:36 | Outpatient (CLI) | payer OTHER ==
--- NOTE | 2020-09-03 22:20 | Ultrasound Report ---
PROCEDURE: OB F/U or Repeat INDICATIONS: SUPERVISION OF OUTSIDE/PRIOR DATING DATA: Last menstrual period (LMP): 03/09/2020. LMP-based estimated date of delivery (SHAYY): 12/14/2020. First dating scan (date and location): 04/30/2020. Estimated date of delivery (SHAYY) from first dating scan: 12/20/2020. The below data below was generated using the ultrasound generated SHAYY of 12/20/2020 TECHNIQUE: Real-time scanning was performed of the fetus, with image documentation and biometric measurements. Endovaginal scanning: Performed COMPARISON: None. FINDINGS: General: A single living intrauterine gestation is present. Presentation: Transverse with head to maternal left Placenta: Placental position is anterior, without previa. Amniotic fluid index: 13.4 cm, 40th percentile for gestational age. Largest pocket is 5.7 cm heart rate: 150 beats per minute. Maternal cervical canal: Closed, 3.9 cm cm long; normal length is 2.5 cm or more. biometrics: Composite gestational age from present scan: 24 weeks 4 days Anatomy: spine is normal in appearance. The chest, stomach, and kidneys have a normal sarahy earance. Urinary bladder is unremarkable. Remainder of the anatomy [facility] but was adequately evaluated on the prior study. Other: Not applicable. IMPRESSION: Normal appearance of the spine with no sonographic evidence of dysraphism demonstrated. Single live intrauterine gestation with average ultrasound age of 24 weeks 4 days. Normal SHITAL. Reviewed by: Kevin Prado MD on 09/03/2020 10:19 PM PDT Approved by: Kevin Prado MD on 09/03/2020 10:19 PM PDT Station ID: [id number]
== END 2020-09-03 14:37 | disposition home or self-care (01) ==
LOC: DI 14:36
PROVIDERS: ATTEND Nurse Practitioner Obstetrics & Gynecology
DX: Z36.89 Encounter for other specified antenatal screening (principal)

== ENCOUNTER 2020-09-22 08:11 | Outpatient (CLI) | payer OTHER ==
[2020-09-22 09:21] LABS: HCT - HEMATOCRIT 30.2 % (37.0-47.0); HGB - HEMOGLOBIN 9.6 g/dL (12.0-16.0); MEAN CORPUSCULAR HEMOGLOBIN 27.4 pg (27.0-31.0); MEAN CORPUSCULAR HGB CONC 31.8 g/dL (32.0-36.0); MEAN CORPUSCULAR VOLUME 86.3 fL (81.0-99.0); MEAN PLATELET VOLUME 8.8 fL (7.9-10.8); RED BLOOD COUNT 3.5 10^6/uL (4.20-5.40); RED CELL DISTRIBUTION WIDTH 13.4 % (12.0-15.0); WHITE BLOOD COUNT 8.6 x10^3/uL (4.8-10.8)
== END 2020-09-22 08:12 | disposition home or self-care (01) ==
LOC: LAB 08:11
PROVIDERS: ATTEND Radiology Diagnostic Radiology
DX: Z34.90 Encounter for supervision of normal pregnancy, unspecified, unspecified trimester (principal)
CPT/HCPCS: 36415; 82950; 85027

== ENCOUNTER 2020-10-11 07:57 | Outpatient (CLI) | payer OTHER ==
[2020-10-11 08:23] LABS: GTT GLUCOSE,FASTING 99 mg/dL (70-100)
== END 2020-10-11 07:58 | disposition home or self-care (01) ==
LOC: LAB 07:57
PROVIDERS: ATTEND Advanced Practice Midwife
DX: O99.810 Abnormal glucose complicating pregnancy (principal)
CPT/HCPCS: 36415; 82951; 82952

== ENCOUNTER 2020-11-03 08:00 | Outpatient (CLI) | payer OTHER ==
[2020-11-03 17:47] LABS: HCT - HEMATOCRIT 31.6 % (37.0-47.0); HGB - HEMOGLOBIN 9.9 g/dL (12.0-16.0); MEAN CORPUSCULAR HGB CONC 31.3 g/dL (32.0-36.0); MEAN CORPUSCULAR VOLUME 86.3 fL (81.0-99.0); RED BLOOD COUNT 3.66 10^6/uL (4.20-5.40); RED CELL DISTRIBUTION WIDTH 13.7 % (12.0-15.0); WHITE BLOOD COUNT 8.4 x10^3/uL (4.8-10.8)
== END 2020-11-03 23:59 | disposition home or self-care (01) ==
LOC: LAB.WCP 08:00
PROVIDERS: ATTEND Advanced Practice Midwife
DX: O99.019 Anemia complicating pregnancy, unspecified trimester (principal)
CPT/HCPCS: 36415; 85027

== ENCOUNTER 2020-11-04 14:24 | Outpatient (CLI) | payer OTHER ==
--- NOTE | 2020-11-05 16:55 | Ultrasound Report ---
PROCEDURE: OB F/U or Repeat INDICATIONS: - UTERINE SIZE DATE DISCREPANCY OUTSIDE/PRIOR DATING DATA: Last menstrual period (LMP): 03/09/2020. LMP-based estimated date of delivery (SHAYY): 12/14/2020. First dating scan (date and location): 04/30/2020. Estimated date of delivery (SHAYY) from first dating scan: 12/20/2020. The below data below was generated using the above SHAYY of 12/20/2020 TECHNIQUE: Real-time scanning was performed of the fetus, with image documentation and biometric measurements. Endovaginal scanning: Not needed COMPARISON: Prior OB ultrasound studies for this . FINDINGS: General: A single living intrauterine gestation is present. Presentation: Vertex Placenta: Placental position is anterior, without previa. Amniotic fluid index: 11.9 cm, 27th percentile for gestational age. heart rate: 135 beats per minute. Maternal cervical canal: 3.5 cm long; normal length is 2.5 cm or more. biometrics: Biparietal diameter: 8.3 cm, 33 weeks 2 days Head circumference: 30.5 cm, 33 weeks 6 days Abdominal circumference: 28.9 cm, 33 weeks 0 days Femur length: 6.4 cm, 33 weeks 1 day Estimated gestational age from initial scan: 33 weeks 3 days. Composite gestational age from present scan: 33 weeks 2 days Estimated weight and percentile: 2129 g, 33 percentile Measurement variability in biometric dating: +/- 10 days from 12-20 weeks gestation, +/- 2 weeks from 20-30 weeks gestation, +/- 3 weeks at 30 weeks gestation or more. Other: Not applicable. IMPRESSION: Appropriate interval growth, delivery date projected to be centered on 12/20/2020. Normal amniotic fluid volume, anterior placenta, vertex presentation. Reviewed by: Gopi Green MD on 11/05/2020 4:53 PM PDT Approved by: Gopi Green MD on 11/05/2020 4:53 PM PDT Station ID: [id number]
== END 2020-11-04 14:25 | disposition home or self-care (01) ==
LOC: DI 14:24
PROVIDERS: ATTEND Advanced Practice Midwife
DX: O26.849 Uterine size-date discrepancy, unspecified trimester (principal); Z3A.33 33 weeks gestation of pregnancy

== ENCOUNTER 2020-11-24 07:00 | Outpatient (CLI) | payer OTHER | END 2020-11-24 23:59 | disposition home or self-care (01) | LOC: LAB 07:00 | PROVIDERS: ATTEND Advanced Practice Midwife | DX: Z36.85 Encounter for antenatal screening for Streptococcus B (principal) | CPT/HCPCS: 87797 ==

== ENCOUNTER 2020-11-27 16:41 | Emergency (ER) | payer OTHER ==
--- NOTE | 2020-11-27 16:56 | ED Physician Documentation ---
PD HPI ABD PAIN - Stated complaint Stated Complaint: CP - Chief complaint Chief Complaint: Cardiac - History obtained from History obtained from: Patient - Additional information Additional information: 35-year-old woman, G3, P2 at 32 weeks gestation with no personal or family history of heart disease or blood clots presents with resolved chest pain. Around noon today she developed substernal chest pain that subsequently radiated to the right chest and the back of the right arm. There was associated dyspnea. Pain is gone at this juncture. No pedal edema or calf pain. She is not short of breath anymore. There is no associated pelvic cramping, fluid loss, or bleeding. She still has motion noted. 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), Other : None HEENT: None Psych: None Musculoskeletal: None Derm: Eczema - Past Surgical History Past Surgical History: No - Present Medications Home Medications: Ambulatory Orders Medication Instructions Recorded Confirmed Pnv No.95/Ferrous Fum/Folic AC 1 each PO DAILY 01/04/20 06/15/20 [ Formula] Cyclobenzaprine [Flexeril] 10 mg PO TID PRN #20 tab 05/30/20 06/15/20 Triamcinolone 0.1% Oint 1 gm TOP BID #80 g 06/15/20 - Allergies Allergies/Adverse Reactions: Allergies Allergy/AdvReac Type Severity Reaction Status Date / Time No Known Drug Allergies Allergy Verified 11/27/20 16:45 - Social History Does the pt smoke?: No Smoking Status: Never smoker Does the pt drink ETOH?: No Does the pt have substance abuse?: No - Immunizations Immunizations are current?: Yes - POLST Patient has POLST: No PD ED PE NORMAL - Vitals Vital signs reviewed: Yes - General General: Alert and oriented X 3, No acute distress - HEENT HEENT: PERRL, EOMI - Neck Neck: Supple, no meningeal sign, No bony TTP - Cardiac Cardiac: RRR, No murmur - Respiratory Respiratory: No respiratory distress, Clear bilaterally - Abdomen Abdomen: Other (Gravid nontender uterus) - Extremities Extremities: No edema, No calf tenderness / cord - Neuro Neuro: Alert and oriented X 3, Normal speech Results - Vitals Vitals: Vital Signs - 24 hr 11/27/20 11/27/20 11/27/20 16:42 16:45 17:50 Temperature 36.5 C 36.5 C Heart Rate 103 H 94 82 Respiratory 16 21 16 Rate Blood Pressure 132/83 H 119/81 H 111/76 O2 Saturation 96 100 98 Oxygen O2 Source Room air - EKG (time done) 1653 Rate: Rate (enter#) (84) Rhythm: NSR [place]: Normal Intervals: Normal MO QRS: Normal Ischemia: Non specific changes. No: ST elevation c/w ischemia, ST depression - Labs Labs: Laboratory Tests 11/27/20 11/27/20 11/27/20 17:02 17:02 17:02 WBC 8.6 RBC 3.51 L Hgb 9.9 L Hct 29.9 L MCV 85.2 MCH 28.2 MCHC 33.1 RDW 14.2 Plt Count 230 MPV 9.7 Neut # (Auto) 6.0 Lymph # (Auto) 1.8 [place] # (Auto) 0.6 Eos # (Auto) 0.1 Baso # (Auto) 0.0 Absolute Nucleated RBC 0.00 Nucleated RBC % 0.0 Sodium 134 L Potassium 3.9 Chloride 105 Carbon Dioxide 20 L Anion Gap 9.0 BUN 6 Creatinine 0.6 Estimated GFR (MDRD) 137 Glucose 114 H Calcium 8.9 Troponin I High Sens 3.2 - Rads (name of study) 1v chest Radiology: EMP read contemporaneously (NAD) PD MEDICAL DECISION MAKING - ED course ED course: 35-year-old woman who is presents for evaluation of completely resolved chest pain with negative work-up here. No clinical evidence of DVT, PE, ACS, dissection. Departure - Departure Disposition: 01 Home, Self Care Clinical Impression: Atypical chest pain Qualifiers: Weeks of gestation: 32 weeks Qualified Code(s): Z3A.32 - 32 weeks gestation of Condition: Good Record reviewed to determine appropriate education?: Yes Instructions: ED Chest Pain NonCardiac Comments: Followup with web site specialist as routine. Return if pain recurs Discharge Date/Time: 11/27/20 17:50
[2020-11-27 17:06] LABS: BASOPHILS % (AUTO) 0.2 %; EOSINOPHILS # (AUTO) 0.1 10^3/uL (0.0-0.7); EOSINOPHILS % (AUTO) 0.7 %; HCT - HEMATOCRIT 29.9 % (37.0-47.0); HGB - HEMOGLOBIN 9.9 g/dL (12.0-16.0); LYMPHOCYTES # (AUTO) 1.8 10^3/uL (1.5-3.5); LYMPHOCYTES % (AUTO) 21.4 %; MEAN CORPUSCULAR HEMOGLOBIN 28.2 pg (27.0-31.0); MEAN CORPUSCULAR HGB CONC 33.1 g/dL (32.0-36.0); MEAN CORPUSCULAR VOLUME 85.2 fL (81.0-99.0); MEAN PLATELET VOLUME 9.7 fL (7.9-10.8); MONOCYTES # (AUTO) 0.6 10^3/uL (0.0-1.0); MONOCYTES % (AUTO) 7.2 %; NEUTROPHILS % (AUTO) 69.6 %; PLT - PLATELET COUNT 230 10^3/uL (130-450); RED BLOOD COUNT 3.51 10^6/uL (4.20-5.40); RED CELL DISTRIBUTION WIDTH 14.2 % (12.0-15.0); WHITE BLOOD COUNT 8.6 x10^3/uL (4.8-10.8)
[2020-11-27 17:18] LABS: CALCIUM 8.9 mg/dL (8.5-10.3); CREATININE 0.6 mg/dL (0.4-1.0); POTASSIUM 3.9 mmol/L (3.5-5.0)
--- NOTE | 2020-11-27 17:21 | XRAY Report ---
PROCEDURE: Chest 1 View X-Ray INDICATIONS: chest pain TECHNIQUE: One view of the chest was acquired. COMPARISON: 12/12/2012 chest x-ray FINDINGS: Surgical changes and devices: None. Lungs and pleura: No pleural effusions or pneumothorax. Lungs are clear. Mediastinum: Mediastinal contours appear normal. Heart size is normal. Bones and chest wall: No suspicious bony lesions. Overlying soft tissues appear unremarkable. IMPRESSION: No acute cardiopulmonary abnormality. Reviewed by: Madan White on 11/27/2020 4:20 PM YAJAIRA Approved by: Madan White on 11/27/2020 4:20 PM YAJAIRA Station ID: [id number]
[2020-11-27 17:52] VITALS: BP 111/76
--- NOTE | 2020-11-28 11:21 | PROCEDURE REPORT ---
- HPI Diagnosis/Indication for NST: Other (Presented to ED for Chest Pain.) Vital Signs Temperature 97.7 F 11/27/20 16:42 Heart Rate 103 H 11/27/20 16:42 Respiratory Rate 16 11/27/20 16:42 Blood Pressure 132/83 H 11/27/20 16:42 O2 Saturation 96 11/27/20 16:42 Temperature 97.7 F 11/27/20 17:50 Heart Rate 82 11/27/20 17:50 Respiratory Rate 16 11/27/20 17:50 Blood Pressure 111/76 11/27/20 17:50 O2 Saturation 98 11/27/20 17:50 - NST Procedure Patient had NST performed in ED due to Chest Pain. Patient is 36 2/7 weeks Gestation. NST: Baseline is 130 with Accelerations of 15X15. No decelerations. Moderate variability. 2 contractions during monitoring that patient did not notice. Reactive NST and Category I monitor strip. Keep all clinic appointments. Patient is scheduled on Sunday for next office visit.
== END 2020-11-27 17:50 | disposition home or self-care (01) ==
LOC: ED 16:41
DX: O26.893 Other specified pregnancy related conditions, third trimester (principal); R07.9 Chest pain, unspecified; Z3A.32 32 weeks gestation of pregnancy
CPT/HCPCS: 36415; 80048; 84484; 85025; 93005; 99284

== ENCOUNTER 2020-11-30 09:53 | Outpatient (CLI) | payer OTHER ==
[2020-11-30] MEDS ORDERED: FERRIC GLUCONATE 125 MG in SODIUM CHLORIDE 0.9% 100ML 100 ML IV ONE (10:08)
[2020-11-30 11:17] VITALS: BP 122/66
--- NOTE | 2020-11-30 12:28 | PROVIDER PROGRESS NOTE ---
- HPI Chief Complaint: Other Current : Current EDU 12/20/20 Gestation 37 Weeks and 1 Days 3 Para 2 Vital Signs Temperature 36.9 C 11/30/20 10:12 Heart Rate 78 11/30/20 10:12 Respiratory Rate 16 11/30/20 10:12 Blood Pressure 121/78 11/30/20 10:12 O2 Saturation 98 11/30/20 10:12 Temperature 36.9 C 11/30/20 11:15 Heart Rate 78 11/30/20 11:15 Respiratory Rate 16 11/30/20 11:15 Blood Pressure 122/66 11/30/20 11:15 O2 Saturation 98 11/30/20 10:12 - Procedures OB Procedure Performed: NST Diagnosis/Indication for NST: Gestational Diabetes NST Procedure: NST Procedure Start Date 11/30/20 Start Time 10:04 Stop Time 10:35 Vibroacoustic Stimulation Used No Patient States Movement Yes - Plan Plan: Gulshan presents to [facility] for NST and growth and SHITAL Secondary to gestational diabetes which has not been monitored. In addition, she is experiencing persistent fatigue and has documented anemia (H/H 9.9/29.7) and has consented to iron infusion today. NST performed 11/30/2020 NST read 11/30/2020 NST reactive. FHR baseline 130, moderate variability, + accels, no decels No contractions appreciated via tocometry Growth and SHITAL EFW 34%tile; SHITAL 7.7 Iron infusion complete. Pt tolerated infusion well. Pt released home with precautions. Continue with twice weekly NST and once weekly SHITAL. Pt verbalized understanding and agrees to above plan. Denies further questions or concerns at this time. FINAL DIAGNOSIS: Anemia complicated Gestational diabetes - unmanaged
--- NOTE | 2020-11-30 13:27 | Ultrasound Report ---
PROCEDURE: OB F/U or Repeat INDICATIONS: gestational DM OUTSIDE/PRIOR DATING DATA: Last menstrual period (LMP): 03/09/2020. LMP-based estimated date of delivery (SHAYY): 12/14/2020. First dating scan (date and location): 04/22/2020. Estimated date of delivery (SHAYY) from first dating scan: 12/20/2020. The below data below was generated using the SHAYY of 12/20/2020 TECHNIQUE: Real-time scanning was performed of the fetus, with image documentation and biometric measurements. Endovaginal scanning: None COMPARISON: 11/04/2020 FINDINGS: General: A single living intrauterine gestation is present. Presentation: Cephalic Placenta: Placental position is anterior, without previa. Amniotic fluid index: 7.7 cm heart rate: 148 beats per minute. Maternal cervical canal: Nonvisualized biometrics: Biparietal diameter: 8.9 cm, 36 week 1 day Head circumference: 32.1 cm, 36 week 2 day Abdominal circumference: 32.7 cm, 36 week 4 day Femur length: 7.0 cm, 35 week 5 day Estimated gestational age from initial scan: 37 week 1 day Composite gestational age from present scan: 36 week 1 day Estimated weight and percentile: 2900 g, 34 percentile Measurement variability in biometric dating: +/- 10 days from 12-20 weeks gestation, +/- 2 weeks from 20-30 weeks gestation, +/- 3 weeks at 30 weeks gestation or more. Other: Not applicable. IMPRESSION: Single live intrauterine corresponding with a 36 week 1 day gestation by current ultrasound . SHITAL 7.7 cm. Estimated weight 2900 g, 34th percentile Reviewed by: Navarro Marc MD on 11/30/2020 12:25 PM YAJAIRA Approved by: Navarro Marc MD on 11/30/2020 12:25 PM AKDT Station ID: [id number]
== END 2020-11-30 11:15 | disposition home or self-care (01) ==
LOC: WFO 09:53 → FBP 09:55 → WFO 11:15
PROVIDERS: ATTEND Nurse Practitioner Obstetrics & Gynecology
DX: O24.419 Gestational diabetes mellitus in pregnancy, unspecified control (principal); O99.013 Anemia complicating pregnancy, third trimester; Z3A.37 37 weeks gestation of pregnancy
CPT/HCPCS: 59025; 76816; 96374; J2916

== ENCOUNTER 2020-12-08 11:04 | Outpatient (CLI) | payer OTHER ==
[2020-12-08 11:25] VITALS: BP 93/63
[2020-12-08] MEDS ORDERED: FERRIC GLUCONATE 125 MG in SODIUM CHLORIDE 0.9% 100ML 100 ML IV ONE (11:45)
== END 2020-12-08 12:50 | disposition home or self-care (01) ==
LOC: WFO 11:04 → FBP 11:05 → WFO 12:50
PROVIDERS: ATTEND Nurse Practitioner Obstetrics & Gynecology
DX: O99.019 Anemia complicating pregnancy, unspecified trimester (principal); Z3A.00 Weeks of gestation of pregnancy not specified
CPT/HCPCS: 96365; J2916

== ENCOUNTER 2020-12-11 20:24 | Outpatient (CLI) | payer OTHER ==
[2020-12-11 20:46] VITALS: BP 126/78
--- NOTE | 2020-12-14 17:54 | PROCEDURE REPORT ---
- HPI Diagnosis/Indication for NST: Decreased movement Current EDU 12/20/20 Gestation 38 Weeks and 5 Days 5 Para 2 Vital Signs Temperature 37.3 C 12/11/20 20:31 Heart Rate 87 12/11/20 20:31 Respiratory Rate 18 12/11/20 20:31 Blood Pressure 126/78 12/11/20 20:31 O2 Saturation 100 12/11/20 20:31 Temperature 37.3 C 12/11/20 20:31 Heart Rate 87 12/11/20 20:31 Respiratory Rate 18 12/11/20 20:31 Blood Pressure 126/78 12/11/20 20:31 O2 Saturation 100 12/11/20 20:31 - NST Procedure NST Procedure Start Date 12/11/20 Start Time 20:35 Stop Time 21:05 Vibroacoustic Stimulation Used No Patient States Movement Yes - Results and Plan Plan: Gulshan presents to [facility] with c/o decreased movement. NST performed 12/11/2020 NST read 12/11/2020 NST reactive. FHR baseline 130s, moderate variability, + accels, no decels Contractions intermittent and mild are unappreciated by pt. Pt released home with precautions. IOL scheduled 12/14/2020
== END 2020-12-11 21:18 | disposition home or self-care (01) ==
LOC: FBP 20:24 → WFO 20:24
PROVIDERS: ATTEND Nurse Practitioner Obstetrics & Gynecology
DX: O36.8130 Decreased fetal movements, third trimester, not applicable or unspecified (principal); Z3A.38 38 weeks gestation of pregnancy
CPT/HCPCS: 59025

== ENCOUNTER 2020-12-14 07:59 | Inpatient (IN) | payer OTHER ==
[2020-12-14] MEDS ORDERED: CARBOPROST TROMETHAMINE 250 MCG/ML AMP IM PRN (08:40)
[2020-12-14] MEDS ORDERED: ONDANSETRON 4 MG/2 ML VIAL IVP PRN (08:40)
[2020-12-14] MEDS ORDERED: fentaNYL 100 MCG/2 ML VIAL IVP PRN (08:40)
[2020-12-14] MEDS ORDERED: METHYLERGONOVINE 0.2 MG/ML VIAL IM PRN (08:40)
[2020-12-14] MEDS ORDERED: ONDANSETRON ODT 4 MG TABLET TL PRN (08:40)
[2020-12-14] MEDS ORDERED: TRANEXAMIC ACID IN NACL 1,000 MG/100 ML BAG IV PRN (08:40)
[2020-12-14] MEDS ORDERED: ACETAMINOPHEN 325 MG TABLET PO PRN ×2 (08:40→19:45)
[2020-12-14] MEDS ORDERED: OXYTOCIN 10 UNIT/ML VIAL IM PRN (08:40)
[2020-12-14] MEDS ORDERED: SODIUM CHLORIDE FLUSH 0.9% 10 ML SYRINGE IVP PRN (08:40)
[2020-12-14] MEDS ORDERED: LIDOCAINE-MPF 1% 30 ML VIAL ID PRN (08:40)
[2020-12-14] MEDS ORDERED: OXYTOCIN/SODIUM CHLORIDE 500 ML IV PRN (08:40)
[2020-12-14] MEDS ORDERED: miSOPROStoL 200 MCG TABLET BC PRN (08:40)
[2020-12-14 09:18] LABS: BASOPHILS % (AUTO) 0.5 %; EOSINOPHILS % (AUTO) 0.5 %; HCT - HEMATOCRIT 31.9 % (37.0-47.0); HGB - HEMOGLOBIN 10.4 g/dL (12.0-16.0); LYMPHOCYTES # (AUTO) 2.1 10^3/uL (1.5-3.5); LYMPHOCYTES % (AUTO) 27.9 %; MEAN CORPUSCULAR HGB CONC 32.6 g/dL (32.0-36.0); MEAN CORPUSCULAR VOLUME 85.8 fL (81.0-99.0); MEAN PLATELET VOLUME 10.6 fL (7.9-10.8); MONOCYTES # (AUTO) 0.6 10^3/uL (0.0-1.0); MONOCYTES % (AUTO) 7.4 %; NEUTROPHILS # (AUTO) 4.8 10^3/uL (1.5-6.6); NEUTROPHILS % (AUTO) 63.2 %; PLT - PLATELET COUNT 261 10^3/uL (130-450); RED BLOOD COUNT 3.72 10^6/uL (4.20-5.40); RED CELL DISTRIBUTION WIDTH 14.5 % (12.0-15.0); WHITE BLOOD COUNT 7.7 x10^3/uL (4.8-10.8)
[2020-12-14] MEDS: miSOPROStoL 100 MCG TABLET BC SCH ×2 (10:30→14:35)
[2020-12-14] MEDS: LACTATED RINGERS 1,000 ML IV SCH ×2 (10:35→19:11)
--- NOTE | 2020-12-14 12:56 | HISTORY & PHYSICAL EXAMINATION ---
Admit History - Visit Reason Visit Reason: Other - : 5 Parity: 2 Premature: 0 Ectopic: 0 : 2 Care: positive: [facility] Risk/History: positive: None Complications This : positive: Gestational diabetes Smoking Status: Never smoker - Mother's Labs Mother's Blood Type: positive: A Mother's RH: positive: Positive GBS: positive: Group B Step Negative Rubella Status: positive: Immune Meds/Allgy - Home Medications Home Medications: Ambulatory Orders Medication Instructions Recorded Confirmed Pnv No.95/Ferrous Fum/Folic AC 1 each PO DAILY 01/04/20 06/15/20 [ Formula] Cyclobenzaprine [Flexeril] 10 mg PO TID PRN #20 tab 05/30/20 06/15/20 Triamcinolone 0.1% Oint 1 gm TOP BID #80 g 06/15/20 - Allergies Allergies/Adverse Reactions: Allergies Allergy/AdvReac Type Severity Reaction Status Date / Time No Known Drug Allergies Allergy Verified 11/27/20 16:45 Review of Systems - Constitutional Constitutional: denies: Fatigue, Fever, Chills, Malaise - Eyes Eyes: denies: Blurred vision, Spots in vision, Dipolpia - Cardiovascular Cariovascular: denies: Irregular heart rate, Palpitations, Chest pain, Edema - Respiratory Respiratory: denies: Cough, SOB at rest - Gastrointestinal Gastrointestinal: denies: Constipation, Diarrhea, Change in bowel habits - Integumentary Integumentary: denies: Rash, Pruritis - Neurological Neurological: denies: Headache Physical - Abdominal Exam Vital Signs: Temp Pulse Resp BP Pulse Ox 36.8 C 83 18 118/76 12/14/20 08:47 12/14/20 08:47 12/14/20 08:47 12/14/20 08:47 Contraction Frequency (min/apart): irregular Contraction Intensity: positive: Mild Uterine Resting Tone: positive: Soft - Monitoring Heart Rate Baseline: 140 Strip Review: positive: Category I - Presentation Presentation: positive: Vertex - Vaginal Exam Membranes: positive: Membranes intact - Speculum Exam Speculum Exam Performed: positive: No Plan for Labor - Plan For Labor I expect patient to be DC'd or transferred within 96 hours.: Yes Plan for Labor: Gulshan titus a 35yo @ 39.1wks gestation by 6.4wk U/S who presents today for medical induction of labor secondary to gestational diabetes. She denies vaginal bleeding, leakage of fluid or contractions. She reports +FM. She has been a patient of [facility] for the duration of her which has been complicated by anemia in which improved with iron supplementation and 2 iron infusions as well as her gestational diabetes diagnosis. She was unable to track her blood glucose secondary to difficulty obtaining necessary parts for her glucometer. Her previous pregnancies were uncomplicated and she states she has been following a healthy diet. She has had q 4 wk growth and AFIs which has remained WNL. She is supported by her partner Rob. She will be admitted to [facility] for medical induction of labor. She intends an unmedicated delivery. She denies questions or concerns at this time. Dating criteria: LMP 03/09/2021 Initial ultrasound @ 6.4wks NOT c/w LMP dating- SHAYY by 6.4wk U/S 12/20/2020 Serial exams - agree OB History: G1: 12/12/2001, @ 39.5wks, Female, [id number] G2: 02/12/2017, @ 39.6wks, female, [id number] G3: 11/2007, SAB <6wks G4: 01/2020, SAB <6wks G5: current Medications: PNV, ferrous sulfate Allergies: NKDA PMHx: Abnormal pap smear followed by LEEP - last pap 05/2020 neg, HPV high grade positive, 16/18 neg Surgical Hx: LEEP Social Hx: Never smoker, no ETOH or IVDA; Partner Rob (getting a divorce but is supportive) Family Hx: no significant course: PROBLEMS 1. Gestational diabetes- Unknown level of control secondary to no monitoring by pt. 2. Anemia of - 09/22- Hct 30.2- symptomatic FeSO4 initiated 10/07/20; repeat CBC-9.9/29.9 3. Hx LEEP - Pap nilm with HPV positive in 05/2020. Initial US: at 6.4wks not c/w LMP (12/14/2020) for FINAL SHAYY 12/20/2020. A pos/Rubella immune VZV immune Gentic testing: Declines FAS WNL w/ exception of incomplete visualization of spine. Anterior placenta, no previa. 3VC. SHITAL WNL. Size c/w dating (EFW 92%tile). Growth U/S 11/04 33%tile; SHITAL 11.9 Growth U/S 11/30 34%ile; SHITAL 7.7 Glucola-151 3HR 99 195,150,128 - diagnoses GDM Flu: 03/18/2020 per pt TDAP-09/21/2020 GBS at 36.2 weeks -Neg HSV: denies self & partner Breast pump Rx given: 09/21/2020 MOD: x2, both girls- BOY: Alf : Rob (getting a divorce. Will be support person). Desires to keep placenta. pp contraception: abstinence; Pelvic PT desired PAP: 05/13/2020-NILM (HPV high grade positive, 16/18 neg). History of abnormals (not within ASCCP guidelines per results on chart from [facility]) PHysical Exam: Normocephalic, atraumatic Heart RRR w/o M/G/R Lungs CTAB Abdomen gravid, soft and nontender. EFW 3400g FHR baseline 140s, moderate variability, + accels, no decels. Contractions palpate mild, intermittent with soft resting tone. Bilateral LE's trace edema Mood is good Assessment: 35yo @ 39.1wks gestation by 6.4wk U/S Gestational diabetes -unknown level of control secondary to no monitoring by pt. (consistently normal growth and SHITAL) FHR category I GBS neg Plan: Preinduction cervical ripening with 50mcg misoprostol q 4 hours Consider AROM with SVE if beach score is appropriate Continuous monitoring Encouraged ambulation and position changes. Jacuzzi PRN. Nitrous oxide PRN. Pt verbalized understanding and agrees to above plan. She denies further questions or concerns at this time.
--- NOTE | 2020-12-14 17:52 | PROVIDER PROGRESS NOTE ---
Labor Progress Note - Uterine Monitoring Uterine Monitoring Mode: positive: External toco Contraction Frequency (min/apart): 3-4 Contraction Intensity: positive: Strong Uterine Resting Tone: positive: Soft - Monitoring Monitor Mode: positive: External ultrasound Heart Rate Baseline: 130 Heart Rate Variability: positive: Moderate (6-25 bmp) Accelerations: positive: Present, 15x15 Decelerations: positive: None Strip Review: positive: Category I - Vaginal Exam Dilation (in cm): 5 Effacement (%): 85 Station: -3 Cervical Position: Posterior - Labor Progress Note Labor Progress Note/Additional Text: S: Breathing through contractions. Feeling increased pressure at the peak of contractions. Requests IV pain management at this time and once received she states she does feel much better. Supported by her partner at the bedside. O: FHR baseline 130s, moderate variability, intermittent periods of minimal variability but overall reassuring, + accels, no decels SVE 5/85/-3, posterior. Vertex. AROM moderate amount of clear fluid A: 35yo @ 39.1wks gestation by 6.4wk U/S Gestational diabetes - unknown control secondary absence of tracking FHR Category I at present GBS neg P: Stop misoprostol. Expectantly manage labor at this time secondary to onset of active labor. Nitrous oxide PRN. Jacuzzi PRN. Anticipate .
[2020-12-14] MEDS ORDERED: WITCH HAZEL/GLYCERIN 1 PAD TOP PRN (19:44)
[2020-12-14] MEDS ORDERED: HYDROCORTISONE 1% CREAM 28 GM TUBE PR PRN (19:44)
--- NOTE | 2020-12-14 19:53 | DELIVERY NOTE ---
Delivery Note - Labor Labor: positive: Induced by ARM - Infant Delivery Method Delivery Method: positive: Spontaneous vaginal delivery - Cervical Ripening Method Cervical Ripening Method: positive: Misoprostil - Presentation Presentation: positive: Vertex, JONI - left occiput anterior - Nuchal Cord Nuchal Cord: positive: None - Amniotic Fluid Description Amniotic Fluid Description: positive: Clear - Episiotomy Type Episiotomy Type: positive: None - Laceration Laceration: positive: 1st degree, Perineal - Suture Suture Type: positive: Vicryl Suture Size: positive: 2-0 - Delivery Outcome Delivery Outcome: positive: Livebirth - [place]: positive: Placed in direct skin contact with mother, Stimulated, Warmed, [place] used sex: positive: Male - Cord Cord: positive: 3 vessels - Placenta Placenta: positive: Intact, Spontaneous - Estimated Blood Loss Estimated Blood Loss (in cc): 250 - Post Delivery Events Post Delivery Events: positive: No post delivery events - Delivery Comments (Free Text/Narrative) Delivery Comments (Free Text/Narrative): Labor: This 35yo @ 39.1wks gestation by 6.4wk U/S presented to [facility] on 12/14/2020 @ 0800 for medical induction of labor secondary to gestational diabetes with unknown control secondary to no tracking. She received 2 doses of 50mcg BC misoprostol for preinduction cervical ripening. She progressed to 5/85/-3 and posterior and AROM occurred at 1741 and was noted to be a moderate amount of clear fluid. FHR pattern demonstrated Category I pattern with intermittent periods of Category II however remained reassuring overall. Normal labor course. Pt progressed to c/c/+1 @ 1905. : Normal of viable male infant on 12/14/2020 @ 1910. No nuchal cord. The was placed on maternal abdomen, stimulated, dried, and placed skin to skin. 's were 8/9 at 1 and 5 minutes respectively. Pitocin administered via IV for hemostasis. The umbilical cord was allowed to stop pulsating at which time it was doubly clamped by CNM and cut by FOB. 3VC. Cord blood was obtained. Fundal massage and gentle cord traction applied for active management of the third stage. Placenta delivered spontaneously and intact at 1915. EBL 250mL. Fourth stage: Uterine fundus firm and there is no excessive bleeding. The perineum, vagina, and cervix were inspected and noted to have 1st degree perineal laceration which was repaired using a 2-[address]-1 needle in standard fashion and under sterile conditions. Vaginal examination following repair was done. Tissues well approximated. Family bonding well. Both mother and baby were left in stable condition.
[2020-12-15] MEDS: IBUPROFEN 800 MG TABLET PO SCH ×5 (06:05→18:19)
[2020-12-15] MEDS: ACETAMINOPHEN 500 MG TABLET PO PRN ×3 (06:06→22:37)
--- NOTE | 2020-12-15 10:14 | PROVIDER PROGRESS NOTE ---
Subjective - Subjective Subjective: S: Bonding well with baby. without difficulty and she states he seems to be latching very well. She states her bleeding seems like a moderate menstrual cycle and denies clotting. States her cramping is mild but consistent and is improved with ibuprofen and tylenol however she did not take it yesterday but did early this morning and it seemed to help. Denies pain at perineum. She feels tired but was able to get some sleep last night. O: BP 113/74, T 36.9, HR 87, RR 18 Heart RRR w/o M/G/R, lungs CTAB, abdomen soft and nontender with fundus firm at U-1, perinuem intact, light lochia rubra, bilateral LE's no edema, mood is good. A: 35yo -->P3 PPD#1 s/p TSVD of viable male 1st degree perineal laceration - intact A1GDM P: Continue routine pp care and medications. Evaluate for discharge home tomorrow morning. Pt verbalized understanding and agrees to above plan. She denies further questions or concerns at this time. Objective - Vital Signs/Intake & Output Vital Signs: Vital Signs x48h Temp Pulse Resp BP Pulse Ox 12/15/20 04:13 36.9 C 87 18 113/74 99 Intake & Output: Intake & Output 12/12/20 12/13/20 12/14/20 12/15/20 23:59 23:59 23:59 23:59 Intake Total 1177.50 Output Total 400 Balance 777.50 - Lab Results Fish Bones: 12/14/20 08:30 12/14/20 08:30 Other Labs: Lab Results x24hrs 12/14/20 Range/Units 08:30 Blood Type A POSITIVE Antibody Screen NEGATIVE
[2020-12-15] MEDS: DOCUSATE SODIUM 100 MG CAPSULE PO SCH ×2 (12:06→21:02)
[2020-12-16] MEDS: IBUPROFEN 800 MG TABLET PO SCH (00:44)
[2020-12-16 09:09] VITALS: BP 110/68
--- NOTE | 2020-12-16 10:29 | Discharge Plan ---
Discharge Plan Problem Reviewed?: Yes Disposition: Home, Self Care Condition: Good Diet: Regular Activity Restrictions: No Restrictions Shower Restrictions: No Driving Restrictions: No Weight Bearing: Full Weight No Smoking: If you smoke, Please STOP! Call for help. Follow-up with: Charisma Ye CNM, ARNP [Primary Care Provider] -
--- NOTE | 2020-12-16 10:40 | DISCHARGE SUMMARY ---
Discharge Summary Condition at Discharge: Good Discharge Disposition: 01 Home, Self Care - HOSPITAL COURSE Hospital Course: Date of admission: 12/14/2020 Date of discharge: 12/16/2020 Diagnosis on Admission: 1. 35yo @ 39.1wks gestation by 6.4wk U/S 2. Gestational diabetes - unknown level of control secondary to no monitoring by pt (consistently normal growth and SHITAL) 3. FHR Category I 4. GBS negative Diagnosis on Discharge: 1. 35yo s/p spontaneous vaginal delivery on 12/14/2020 2. 3. Normal recovery Brief History: She is a patient of [facility] who presented on 12/14/2020 for medical induction of labor secondary to gestational diabetes with unknown control secondary to lack of tracking by patient. She did have consistently normal growth and AFIs. SVE was thick/high and posterior. Vertex. She received 2 doses of 50mcg BC misoprostol for preinduction cervical ripening. She was then AROMed for a moderate amount of clear fluid. She progressed spontaneously to deliver a viable male on 12/14/2020 @ 1910. Apgars were 8/9 at 1 and 5 minutes respectively. EBL 250mL. The patient was noted to have a 1st degree perineal laceration which was repaired using a 2-[address]-1 needle, in standard fashion and under sterile conditions. She has been doing well in her course. She is ambulating and tolerat ing a regular diet. She is urinating without difficulty and her lochia is normal. Her pain is well controlled with oral medications. She is bonding well with her baby and is without difficulty. Her partner is supportive at the bedside and they desire to be discharged home today. O: BP 110/68, T 36.9, HR 76, RR 18 Heart RRR w/o M/G/R, lungs CTAB, abdomen soft and nontender with fundus firm at U-1, perineum intact, light lochia rubra, bilateral LE's trace edema. She will be discharged home today on day #2 with instructions to continue taking her vitamin while and to continue taking ibuprofen and tylenol OTC as needed for pain management. She intends to follow up with myself at [facility] in 1 week or sooner if needed. She has been given precautions to call if she has any worsening fevers, chills, abdominal pain, increased vaginal bleeding or foul smelling vaginal lochia. She verbalized understanding and agrees to the above plan. She denies further questions or concerns at this time. - ALLERGIES Allergies/Adverse Reactions: Allergies Allergy/AdvReac Type Severity Reaction Status Date / Time No Known Drug Allergies Allergy Verified 11/27/20 16:45 - MEDICATIONS Home Medications: Ambulatory Orders Medication Instructions Recorded Confirmed Pnv No.95/Ferrous Fum/Folic AC 1 each PO DAILY 01/04/20 06/15/20 [ Formula] Cyclobenzaprine [Flexeril] 10 mg PO TID PRN #20 tab 05/30/20 06/15/20 Triamcinolone 0.1% Oint 1 gm TOP BID #80 g 06/15/20 - LABS Result Diagrams: 12/14/20 08:30 12/14/20 08:30
== END 2020-12-16 11:15 | disposition home or self-care (01) | DRG 807 ==
LOC: WFO 07:59 → FBP 08:04 → WFO 08:39 → FBP 08:40 → OBSVTOIN 17:05
PROVIDERS: ADMIT Nurse Practitioner Obstetrics & Gynecology; ATTEND Nurse Practitioner Obstetrics & Gynecology
PROC: 10E0XZZ Delivery of Products of Conception, External Approach (ICD-10-PCS; principal; 2020-12-14)
PROC: 10907ZC Drainage of Amniotic Fluid, Therapeutic from Products of Conception, Via Natural or Artificial Opening (ICD-10-PCS; 2020-12-14)
PROC: 0HQ9XZZ Repair Perineum Skin, External Approach (ICD-10-PCS; 2020-12-14)
DX: O24.429 Gestational diabetes mellitus in childbirth, unspecified control (principal); Z37.0 Single live birth; O99.02 Anemia complicating childbirth; O70.0 First degree perineal laceration during delivery; Z91.19 Patient's noncompliance with other medical treatment and regimen; Z3A.39 39 weeks gestation of pregnancy; Z86.19 Personal history of other infectious and parasitic diseases
CPT/HCPCS: 82947; 85025; 86850; 86900; 86901; A9270; G0378; J7120

== ENCOUNTER 2021-05-30 21:57 | Emergency (ER) | payer OTHER ==
--- NOTE | 2021-05-30 22:32 | ED Physician Documentation ---
PD HPI URI - Stated complaint Stated Complaint: COUGH, CHEST PX - Chief complaint Chief Complaint: Resp - History obtained from History obtained from: Patient - History of Present Illness Timing - onset: How many days ago (several) Timing duration: Days (several days of cough and fatigue, aches. Having some anterior chest pain with coughing. Her 2 kids are starting to be ill the past day or so as well.) Timing details: Abrupt onset, Still present Associated symptoms: Chills, Nasal congestion, Dry cough, Chest pain (anterior with coughing.), Dyspnea. No: NVD Contributing factors: No: Sick contact, Unimmunized, COPD / asthma Improves by: No: Medication (cough med at home not helping much.) Similar symptoms before: Has not had sx before Recently seen: Not recently seen Review of Systems Constitutional: reports: Chills, Myalgias, Fatigue Nose: reports: Congestion Cardiac: reports: Chest pain / pressure. denies: Palpitations, Pedal edema, Calf pain Respiratory: reports: Dyspnea, Cough. denies: Wheezing GI: reports: Nausea. denies: Vomiting, Diarrhea Skin: denies: Rash, Lesions Neurologic: denies: Altered mental status, Headache PD PAST MEDICAL HISTORY - Past Medical History Cardiovascular: None Respiratory: None Neuro: None Endocrine/Autoimmune: None GI: None HYPO SPLASHER: Miscarriage(s), Other : None HEENT: None Psych: None Musculoskeletal: None Derm: Eczema - Past Surgical History Past Surgical History: No - Present Medications Home Medications: Ambulatory Orders Medication Instructions Recorded Confirmed Pnv No.95/Ferrous Fum/Folic AC 1 each PO DAILY 01/04/20 06/15/20 [ Formula] Cyclobenzaprine [Flexeril] 10 mg PO TID PRN #20 tab 05/30/20 06/15/20 Triamcinolone 0.1% Oint 1 gm TOP BID #80 g 06/15/20 Benzonatate [Tessalon] 100 mg PO TID PRN #20 cap 05/30/21 dexAMETHasone [Decadron] 4 mg PO DAILY #5 tablet 05/30/21 - Allergies Allergies/Adverse Reactions: Allergies Allergy/AdvReac Type Severity Reaction Status Date / Time No Known Drug Allergies Allergy Verified 05/30/21 22:09 - Social History Does the pt smoke?: No Smoking Status: Never smoker Does the pt drink ETOH?: No Does the pt have substance abuse?: No - Immunizations Immunizations are current?: Yes - POLST Patient has POLST: No PD ED PE NORMAL - Vitals Vital signs reviewed: Yes - General General: Alert and oriented X 3, No acute distress, Well developed/nourished - HEENT HEENT: Ears normal, Moist mucous membranes, Pharynx benign - Neck Neck: Supple, no meningeal sign, No adenopathy - Cardiac Cardiac: RRR, No murmur - Respiratory Respiratory: No respiratory distress, Clear bilaterally (no wheezes. No coarse sounds. She is mildly tachycardic. ) - Abdomen Abdomen: Soft, Non tender - Derm Derm: Normal color, Warm and dry - Extremities Extremities: No edema, No calf tenderness / cord - Neuro Neuro: Alert and oriented X 3, No motor deficit, Normal speech Results - Vitals Vitals: Vital Signs - 24 hr 05/30/21 05/31/21 22:09 00:12 Temperature 36.9 C 37.0 C Heart Rate 100 88 Respiratory 16 18 Rate Blood Pressure 135/87 H 126/76 O2 Saturation 98 96 Oxygen O2 Source Room air PD MEDICAL DECISION MAKING - ED course Complexity details: reviewed results (COVID test reference sent out. ), considered differential (presume viral illness. Can test for COVID. Does not seem pneumonia. Not wheezing per se, but having notable cough. Can help those with meds hopefully. ), d/w patient Departure - Departure Disposition: Home, Self Care Clinical Impression: Upper respiratory infection Qualifiers: URI type: unspecified URI Qualified Code(s): J06.9 - Acute upper respiratory infection, unspecified Condition: Stable Record reviewed to determine appropriate education?: Yes Instructions: ED Upper Resp Infec No Abx Tx Prescriptions: dexAMETHasone [Decadron] 4 mg PO DAILY #5 tablet Benzonatate [Tessalon] 100 mg PO TID PRN #20 cap PRN Reason: Cough Comments: Stay well-hydrated. Tylenol or ibuprofen if needed for fevers or pains. We can try to help with the cough with Decadron steroid for inflammation of the airways and benzonatate for cough suppression. At [id number] cough medicines or such if needed. Your Covid test should resulted in couple of days. Home at rest and off work for couple of days pending results and feeling better. You have a Covid test pending. You need to self quarantine until the result is done and negative. Do not leave your house. Do not get near anybody. The results should be done in 48 to 72 hours, but sometimes longer. We will call with a positive result, the fastest way to get a negative result for confirmation though is to go to the hospital website at [email or web address], click on the my [facility] tab and sign up for the patient portal. If any friends or family get sick and would like to have a Covid test done, but do not have signs or symptoms that would necessitate being hospitalized, we encourage testing throughone of the local pharmacies or the Health Department. Call them to schedule an appointment. Forms: Activity restrictions Discharge Date/Time: 05/31/21 00:13
[2021-05-30] MEDS ORDERED: BENZONATATE 100 MG CAPSULE PO STA (22:47)
[2021-05-31 00:13] VITALS: BP 126/76
== END 2021-05-31 00:13 | disposition home or self-care (01) ==
LOC: ED 21:57
DX: U07.1 COVID-19 (principal); J06.9 Acute upper respiratory infection, unspecified
CPT/HCPCS: 87635; 99282; 99283; A9270

== ENCOUNTER 2022-09-03 14:57 | Emergency (ER) | payer MEDICAID, OTHER ==
[2022-09-03 15:07] VITALS: BP 126/73
[2022-09-03 15:23] LABS: BASOPHILS # (AUTO) 0.1 10^3/uL (0.0-0.1); BASOPHILS % (AUTO) 0.6 %; EOSINOPHILS # (AUTO) 0.1 10^3/uL (0.0-0.7); EOSINOPHILS % (AUTO) 1.2 %; HGB - HEMOGLOBIN 12.4 g/dL (12.0-16.0); LYMPHOCYTES # (AUTO) 2.8 10^3/uL (1.5-3.5); LYMPHOCYTES % (AUTO) 30.1 %; MEAN CORPUSCULAR HEMOGLOBIN 26.6 pg (27.0-31.0); MEAN CORPUSCULAR HGB CONC 31.8 g/dL (32.0-36.0); MEAN CORPUSCULAR VOLUME 83.7 fL (81.0-99.0); MEAN PLATELET VOLUME 8.6 fL (7.9-10.8); MONOCYTES # (AUTO) 0.6 10^3/uL (0.0-1.0); MONOCYTES % (AUTO) 6.6 %; NEUTROPHILS # (AUTO) 5.8 10^3/uL (1.5-6.6); NEUTROPHILS % (AUTO) 61.3 %; PLT - PLATELET COUNT 376 10^3/uL (130-450); RED BLOOD COUNT 4.66 10^6/uL (4.20-5.40); RED CELL DISTRIBUTION WIDTH 13.2 % (12.0-15.0); WHITE BLOOD COUNT 9.4 x10^3/uL (4.8-10.8)
--- NOTE | 2022-09-03 15:23 | ED Physician Documentation ---
History of Present Illness - Stated complaint Stated Complaint: LT ABD PX - Chief complaint Chief Complaint: Abd Pain - Additonal information Additional information: 36-year-old female who is G6, presents to the emergency department for evaluation of upper quadrant abdominal pain. LMP 08/01/2022. She states that she woke up this morning and had pain in the left upper part of the abdomen. It lasted for several hours before fully dissipating. She has had no nausea or vomiting but she did take a [facility] test and found that it was positive. She is here to both confirm the but she was also concerned about the left upper quadrant belly pain. She denies any dysuria urgency or frequency. No previous past surgical histories. Patient denies any lower pelvic pain, vaginal bleeding or cramping. No chest pa in or shortness of air. Review of Systems Constitutional: denies: Fever GI: reports: Abdominal Pain. denies: Constipation : reports: LMP (2022). 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(s), Other : None HEENT: None Psych: None Musculoskeletal: None Derm: Eczema - Past Surgical History Past Surgical History: No - Present Medications Home Medications: Ambulatory Orders Medication Instructions Recorded Confirmed Pnv No.95/Ferrous Fum/Folic AC 1 each PO DAILY 01/04/20 06/15/20 [ Formula] Cyclobenzaprine [Flexeril] 10 mg PO TID PRN #20 tab 05/30/20 06/15/20 Triamcinolone 0.1% Oint 1 gm TOP BID #80 g 06/15/20 Benzonatate [Tessalon] 100 mg PO TID PRN #20 cap 05/30/21 dexAMETHasone [Decadron] 4 mg PO DAILY #5 tablet 05/30/21 Norgestimate-Ethinyl Estradiol 1 each PO TID #1 packet 11/25/21 [Ortho Tri-Cyclen 28 Tablet] - Allergies Allergies/Adverse Reactions: Allergies Allergy/AdvReac Type Severity Reaction Status Date / Time No Known Drug Allergies Allergy Verified 09/03/22 15:05 - Social History Does the pt smoke?: No Smoking Status: Never smoker Does the pt drink ETOH?: No Does the pt have substance abuse?: No - Immunizations Immunizations are current?: Yes - POLST Patient has POLST: No PD ED PE NORMAL - General General: Alert and oriented X 3, No acute distress, Well developed/nourished - HEENT HEENT: Atraumatic - Cardiac Cardiac: RRR, No murmur - Respiratory Respiratory: No respiratory distress, Clear bilaterally - Abdomen Abdomen: Normal bowel sounds, Soft. 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 Eye Opening: Spontaneous Motor: Obeys Commands Verbal: Oriented GCS Score: 15 Results - Vitals Vitals: Vital Signs - 24 hr 09/03/22 09/03/22 15:01 15:12 Temperature 36.8 C Heart Rate 93 Respiratory 16 Rate Blood Pressure 126/73 O2 Saturation 99 98 Oxygen O2 Source Room air - Labs Labs: Laboratory Tests 09/03/22 09/03/22 09/03/22 15:19 15:19 15:19 WBC 9.4 RBC 4.66 Hgb 12.4 Hct 39.0 MCV 83.7 MCH 26.6 L MCHC 31.8 L RDW 13.2 Plt Count 376 MPV 8.6 Neut # (Auto) 5.8 Lymph # (Auto) 2.8 [place] # (Auto) 0.6 Eos # (Auto) 0.1 Baso # (Auto) 0.1 Absolute Nucleated RBC 0.00 Nucleated RBC % 0.0 Sodium 135 Potassium 3.6 Chloride 107 Carbon Dioxide 23 Anion Gap 5.0 L BUN 9 Creatinine 0.9 Estimated GFR (MDRD) 85 L Glucose 109 H Calcium 8.5 Total Bilirubin 0.4 AST 27 ALT 18 Alkaline Phosphatase 70 Total Protein 7.5 Albumin 3.6 Globulin 3.9 Albumin/Globulin Ratio 0.9 L Lipase 25 HCG, Quant Urine Color YELLOW Urine Clarity HAZY Urine pH 5.5 Ur Specific [place] >=1.030 H Urine Protein NEGATIVE Urine Glucose (UA) NEGATIVE Urine Ketones NEGATIVE Urine Occult Blood NEGATIVE Urine Nitrite NEGATIVE Urine Bilirubin NEGATIVE Urine Urobilinogen 1 (NORMAL) Ur Leukocyte Esterase SMALL H Urine RBC 0-5 Urine WBC 11-25 H Ur Squamous Epith Cells MANY Squamous H Urine Bacteria Moderate H Urine Mucus Few Strands Ur Microscopic Review INDICATED Urine Culture Comments NOT INDICATED Urine HCG, Qual POSITIVE 09/03/22 15:19 WBC RBC Hgb Hct MCV MCH MCHC RDW Plt Count MPV Neut # (Auto) Lymph # (Auto) [place] # (Auto) Eos # (Auto) Baso # (Auto) Absolute Nucleated RBC Nucleated RBC % Sodium Potassium Chloride Carbon Dioxide Anion Gap BUN Creatinine Estimated GFR (MDRD) Glucose Calcium Total Bilirubin AST ALT Alkaline Phosphatase Total Protein Albumin Globulin Albumin/Globulin Ratio Lipase HCG, Quant 559.91 Urine Color Urine Clarity Urine pH Ur Specific [place] Urine Protein Urine Glucose (UA) Urine Ketones Urine Occult Blood Urine Nitrite Urine Bilirubin Urine Urobilinogen Ur Leukocyte Esterase Urine RBC Urine WBC Ur Squamous Epith Cells Urine Bacteria Urine Mucus Ur Microscopic Review Urine Culture Comments Urine HCG, Qual PD Medical Decision Making - ED course Complexity details: reviewed results, re-evaluated patient, considered differential, d/w patient ED course: This is a well-appearing 36-year-old female who presents emergency department for evaluation of left upper quadrant abdominal pain that began this morning when she woke up but by the time she arrived to the emergency department had fully abated. No fevers, nausea or vomiting. She did take a home test and was found to be positive this morning. Her LMP was 08/01/2022. A2 Here in the emergency department on exam there was absolutely no tenderness elicited anywhere with palpation of the abdomen. I did obtain CBC, electrolytes and a hCG. Per my interpretation no acute worrisome findings with the CBC or electrolytes. She is confirmed with an hCG in the mid 500s. I did discuss with the patient that given the lack of abdominal tenderness and an hCG under the typical threshold of intrauterine discrimination I was not likely to find evidence of an intrauterine today. I feel it is unlikely that she has an ectopic given the lack of pain in the pelvic region but I did discuss with her the usual emergent return precautions. With regard to the left upper quadrant abdominal pain I feel it is entirely likely that this could be gas or gastritis and have advised her to use Maalox or Tums. If not better she will return emergently to the ER otherwise we will follow-up with her CNM Charisma Li who managed her last . Departure - Departure Disposition: Home, Self Care Clinical Impression: and not yet delivered in first trimester, Left upper quadrant abdominal pain Condition: Stable Record reviewed to determine appropriate education?: Yes Follow-Up: Charisma Ye, MARLY, ZULY [Provider Admit Priv/Credential] - Comments: [place]uru[place] you are seen today in the emergency department because you had some pain in your upper abdomen this morning. You report your last menstrual period as August 01, 2022. Today I can confirm that you are . Based on your last menstrual period you would have a due date of early May 2023 Your hormone level is in the mid 500s. Were not typically able to visualize intrauterine with hormone level less than about 17 or 1800. Based on the location of your pain I have little suspicion that this could be a outside the uterus however if you find that you develop any lower abdominal tenderness, have lower pelvic pain or cramping you do need to return to the ER for repeat evaluation. I encourage you to call the women's health clinic to follow-up with your previous OB provider to manage this .
[2022-09-03 15:25] LABS: BILIRUBIN,URINE NEGATIVE (NEGATIVE); GLUCOSE, URINE (UA) NEGATIVE (NEGATIVE); KETONES,URINE (UA) NEGATIVE (NEGATIVE); LEUKOCYTE ESTERASE, URINE SMALL (NEGATIVE); NITRITE,URINE NEGATIVE (NEGATIVE); OCCULT BLOOD,URINE NEGATIVE (NEGATIVE); PH,URINE 5.5 PH (5.0-7.5); PROTEIN,URINE NEGATIVE (NEGATIVE); UROBILINOGEN,URINE 1 (NORMAL) E.U./dL (NORMAL)
[2022-09-03 15:27] LABS: CLARITY,URINE HAZY (CLEAR); HCG UR QUAL POSITIVE
[2022-09-03 15:35] LABS: BACTERIA,URINE Moderate /HPF (None Seen); MUCUS,URINE Few Strands; RBC,URINE 0-5 /HPF (0-5); SQUAMOUS EPITHELIAL CELL,UR MANY Squamous (<= Few)
[2022-09-03 15:39] LABS: ALBUMIN 3.6 g/dL (3.2-5.5); ALBUMIN/GLOBULIN RATIO 0.9 (1.0-2.2); BILIRUBIN,TOTAL 0.4 mg/dL (0.2-1.0); CALCIUM 8.5 mg/dL (8.5-10.3); CREATININE 0.9 mg/dL (0.4-1.0); POTASSIUM 3.6 mmol/L (3.5-5.0); TOTAL PROTEIN 7.5 g/dL (6.7-8.2)
== END 2022-09-03 16:14 | disposition home or self-care (01) ==
LOC: ED 14:57
DX: Z32.01 Encounter for pregnancy test, result positive (principal)
CPT/HCPCS: 36415; 80053; 81001; 81003; 81025; 83690; 84702; 85025; 87086; 99283

== ENCOUNTER 2022-09-25 09:26 | Outpatient (CLI) | payer OTHER ==
[2022-09-25 10:14] LABS: BASOPHILS # (AUTO) 0.1 10^3/uL (0.0-0.1); BASOPHILS % (AUTO) 0.8 %; EOSINOPHILS # (AUTO) 0.1 10^3/uL (0.0-0.7); HCT - HEMATOCRIT 37.6 % (37.0-47.0); HGB - HEMOGLOBIN 12.1 g/dL (12.0-16.0); LYMPHOCYTES # (AUTO) 2.5 10^3/uL (1.5-3.5); LYMPHOCYTES % (AUTO) 31.9 %; MEAN CORPUSCULAR HEMOGLOBIN 26.5 pg (27.0-31.0); MEAN CORPUSCULAR HGB CONC 32.2 g/dL (32.0-36.0); MEAN CORPUSCULAR VOLUME 82.5 fL (81.0-99.0); MEAN PLATELET VOLUME 8.6 fL (7.9-10.8); MONOCYTES # (AUTO) 0.5 10^3/uL (0.0-1.0); MONOCYTES % (AUTO) 6.2 %; NEUTROPHILS # (AUTO) 4.6 10^3/uL (1.5-6.6); NEUTROPHILS % (AUTO) 59.8 %; PLT - PLATELET COUNT 356 10^3/uL (130-450); RED BLOOD COUNT 4.56 10^6/uL (4.20-5.40); RED CELL DISTRIBUTION WIDTH 13.3 % (12.0-15.0); WHITE BLOOD COUNT 7.7 x10^3/uL (4.8-10.8)
--- NOTE | 2022-09-25 12:06 | Ultrasound Report ---
PROCEDURE: OB First Trimester w/TV INDICATIONS: POSITIVE TEST OUTSIDE/PRIOR DATING DATA: Last menstrual period (LMP): 08/01/2022. LMP-based estimated date of delivery (SHAYY): 05/08/2023. First dating scan (date and location): 09/25/2022, current study. Estimated date of delivery (SHAYY) from first dating scan: Not applicable. TECHNIQUE: Real-time scanning was performed of the fetus and maternal pelvic organs, with image documentation. Endovaginal scanning was also performed to better visualize the fetus and maternal ovaries. COMPARISON: None. FINDINGS: An irregular intrauterine fluid collection is present. Mean gestational sac diameter is 0. 82 cm which would correspond to a 5 week 4 day gestation. Embryo: No discrete pole identified. Heart rate: Not applicable Other: Small areas of irregular hypoechogenicity surrounding the intrauterine fluid collection, poten tially implantation bleed. Measurement variability in dating: +/- 4 weeks by LMP, +/- 7 days by mean sac diameter (use before 6 weeks gestation if crown-rump length not able to be measured), +/- 5 days by crown-rump length (6-12 weeks gestation). Maternal organs: The cervix is closed. Ovaries appear within normal limits. Corpus luteum was not de finitely identified. There is a 1.1 cm ovoid, circumscribed cystic mass posterior to the uterus witho ut vascularity. IMPRESSION: 1. An irregular intrauterine fluid collection without visible products of conception is present. This may indicate early intrauterine , nonviable , less likely ectopic . Close clinical follow-up with beta hCG levels is recommended. Follow-up sonographic imaging in 2-3 weeks i s recommended. 2. Normal ovaries. 3. Indeterminant 1.1 cm cystic mass posterior to the uterus. Attention on follow-up recommended. Reviewed by: Kiley Corea MD on 09/25/2022 12:05 PM PDT Approved by: Kiley Corea MD on 09/25/2022 12:05 PM PDT Station ID: [id number]
[2022-09-26 05:13] LABS: HBsAG SCREEN Negative (Negative); HCV AB Non Reactive (Non Reactive); HIV SCREEN 4TH GENERATION Non Reactive (Non Reactive)
[2022-09-26 06:10] LABS: RPR Non Reactive (Non Reactive)
[2022-09-26 11:10] LABS: VARICELLA-ZOSTER AB IGG 2395 index (Immune >165)
== END 2022-09-25 09:27 | disposition home or self-care (01) ==
LOC: DI 09:26 → MERGE 09:26 → DI 09:27
PROVIDERS: ATTEND Nurse Practitioner
DX: O36.80X0 Pregnancy with inconclusive fetal viability, not applicable or unspecified (principal); O99.891 Other specified diseases and conditions complicating pregnancy; R93.5 Abnormal findings on diagnostic imaging of other abdominal regions, including retroperitoneum
CPT/HCPCS: 36415; 85025; 86592; 86762; 86787; 86803; 86850; 86900; 86901; 87340; 87389

== ENCOUNTER 2022-09-28 08:11 | Outpatient (CLI) | payer OTHER | END 2022-09-28 08:12 | disposition home or self-care (01) | LOC: LAB.N 08:11 | PROVIDERS: ATTEND Nurse Practitioner | DX: Z32.01 Encounter for pregnancy test, result positive (principal) | CPT/HCPCS: 36415; 84702 ==

== ENCOUNTER 2022-09-30 09:13 | Outpatient (CLI) | payer OTHER | END 2022-09-30 09:14 | disposition home or self-care (01) | LOC: LAB.N 09:13 | PROVIDERS: ATTEND Nurse Practitioner | DX: Z32.01 Encounter for pregnancy test, result positive (principal) | CPT/HCPCS: 36415; 84702 ==

== ENCOUNTER 2022-10-01 12:55 | Emergency (ER) | payer OTHER ==
[2022-10-01 13:07] VITALS: BP 108/66
[2022-10-01 13:45] LABS: BILIRUBIN,URINE NEGATIVE (NEGATIVE); GLUCOSE, URINE (UA) NEGATIVE (NEGATIVE); KETONES,URINE (UA) NEGATIVE (NEGATIVE); LEUKOCYTE ESTERASE, URINE NEGATIVE (NEGATIVE); NITRITE,URINE NEGATIVE (NEGATIVE); OCCULT BLOOD,URINE SMALL (NEGATIVE); PH,URINE 5.5 PH (5.0-7.5); PROTEIN,URINE NEGATIVE (NEGATIVE); UROBILINOGEN,URINE 0.2 (NORMAL) E.U./dL (NORMAL)
[2022-10-01 13:50] LABS: CLARITY,URINE CLEAR (CLEAR)
[2022-10-01 14:11] LABS: BACTERIA,URINE Few /HPF (None Seen); RBC,URINE 0-5 /HPF (0-5); SQUAMOUS EPITHELIAL CELL,UR RARE Squamous (<= Few); WBC,URINE 0-3 /HPF (0-5)
[2022-10-01 15:01] LABS: BASOPHILS # (AUTO) 0.1 10^3/uL (0.0-0.1); BASOPHILS % (AUTO) 0.8 %; EOSINOPHILS # (AUTO) 0.1 10^3/uL (0.0-0.7); EOSINOPHILS % (AUTO) 1.3 %; HCT - HEMATOCRIT 40.4 % (37.0-47.0); HGB - HEMOGLOBIN 12.6 g/dL (12.0-16.0); LYMPHOCYTES # (AUTO) 2.5 10^3/uL (1.5-3.5); LYMPHOCYTES % (AUTO) 27.3 %; MEAN CORPUSCULAR HEMOGLOBIN 26.6 pg (27.0-31.0); MEAN CORPUSCULAR HGB CONC 31.2 g/dL (32.0-36.0); MEAN CORPUSCULAR VOLUME 85.2 fL (81.0-99.0); MEAN PLATELET VOLUME 8.7 fL (7.9-10.8); MONOCYTES # (AUTO) 0.6 10^3/uL (0.0-1.0); MONOCYTES % (AUTO) 6.5 %; NEUTROPHILS # (AUTO) 5.8 10^3/uL (1.5-6.6); NEUTROPHILS % (AUTO) 63.8 %; PLT - PLATELET COUNT 405 10^3/uL (130-450); RED BLOOD COUNT 4.74 10^6/uL (4.20-5.40); RED CELL DISTRIBUTION WIDTH 13.2 % (12.0-15.0); WHITE BLOOD COUNT 9.1 x10^3/uL (4.8-10.8)
[2022-10-01 15:20] LABS: ALBUMIN 3.6 g/dL (3.2-5.5); ALBUMIN/GLOBULIN RATIO 0.9 (1.0-2.2); BILIRUBIN,TOTAL 0.4 mg/dL (0.2-1.0); CALCIUM 9.2 mg/dL (8.5-10.3); TOTAL PROTEIN 7.8 g/dL (6.7-8.2)
--- NOTE | 2022-10-01 15:20 | Ultrasound Report ---
PROCEDURE: OB First Trimester w/TV INDICATIONS: 5 weeks preg, +vb OUTSIDE/PRIOR DATING DATA: Last menstrual period (LMP): 08/01/2022. LMP-based estimated date of delivery (SHAYY): 05/08/2023. First dating scan (date and location): 09/25/2022. Estimated date of delivery (SHAYY) from first dating scan: 05/24/2023. TECHNIQUE: Real-time scanning was performed of the fetus and maternal pelvic organs, with image documentation. Endovaginal scanning was also performed to better visualize the fetus and maternal ovaries. COMPARISON: 09/25/2022 FINDINGS: Intrauterine gestational sac present. Embryo: Mean gestational sac size 0.92 cm: 5 weeks 5 days, no definite pole is identified. Hea rt rate: Not identified. A pole is seen. No yolk sac is present Other: No perigestational fluid collection. Maternal organs: Ovaries appear within normal limits. A subcentimeter cyst adjacent to the uterus is of uncertain etiology with no internal or surrounding flow. IMPRESSION: Gestational sac is identified. No definite pole or yolk sac is seen. Recommend cor relation with quantitative hCG and recommend follow-up ultrasound. Reviewed by: Esteban Spence on 10/01/2022 2:19 PM YAJAIRA Approved by: Esteban Spence on 10/01/2022 2:19 PM YAJAIRA Station ID: [id number]
--- NOTE | 2022-10-01 15:32 | ED Physician Documentation ---
History of Present Illness - Stated complaint Stated Complaint: FEMALE - Chief complaint Chief Complaint: General - History obtained from History obtained from: Patient, Family - History of Present Illness Timing: Today Pain level max: 0 Pain level now: 0 - Additonal information Additional information: Patient is a 36-year-old female, 6 para 3. She is approximately 5 weeks . LMP was 5-23. Today she noticed brown vaginal discharge. Is not having any cramping or pain. She had a recent ultrasound that showed an irregular intrauterine fluid collection without visible products of conception. 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 HEENT: None Psych: None Musculoskeletal: None Derm: Eczema - Past Surgical History Past Surgical History: No - Present Medications Home Medications: Ambulatory Orders Medication Instructions Recorded Confirmed Pnv No.95/Ferrous Fum/Folic AC 1 each PO DAILY 01/04/20 06/15/20 [ Formula] Cyclobenzaprine [Flexeril] 10 mg PO TID PRN #20 tab 05/30/20 06/15/20 Triamcinolone 0.1% Oint 1 gm TOP BID #80 g 06/15/20 Benzonatate [Tessalon] 100 mg PO TID PRN #20 cap 05/30/21 dexAMETHasone [Decadron] 4 mg PO DAILY #5 tablet 05/30/21 Norgestimate-Ethinyl Estradiol 1 each PO TID #1 packet 11/25/21 [Ortho Tri-Cyclen 28 Tablet] - Allergies Allergies/Adverse Reactions: Allergies Allergy/AdvReac Type Severity Reaction Status Date / Time No Known Drug Allergies Allergy Verified 10/01/22 13:01 - Social History Does the pt smoke?: No Smoking Status: Never smoker Does the pt drink ETOH?: No Does the pt have substance abuse?: No - Immunizations Immunizations are current?: Yes - POLST Patient has POLST: No PD ED PE NORMAL - Vitals Vital signs reviewed: Yes - General General: Alert and oriented X 3, No acute distress - HEENT HEENT: Moist mucous membranes - Neck Neck: Supple, no meningeal sign - Cardiac Cardiac: RRR, Strong equal pulses - Respiratory Respiratory: No respiratory distress, Clear bilaterally - Abdomen Abdomen: Soft, Non tender, Non distended - Derm Derm: Warm and dry - Neuro Neuro: Alert and oriented X 3 - Psych Psych: Normal mood, Normal affect Results - Vitals Vitals: Vital Signs - 24 hr 10/01/22 13:01 Temperature 36.3 C L Heart Rate 91 Respiratory 18 Rate Blood Pressure 108/66 O2 Saturation 98 Oxygen O2 Source Room air - Labs Labs: Laboratory Tests 10/01/22 10/01/22 10/01/22 13:16 14:57 14:57 WBC 9.1 RBC 4.74 Hgb 12.6 Hct 40.4 MCV 85.2 MCH 26.6 L MCHC 31.2 L RDW 13.2 Plt Count 405 MPV 8.7 Neut # (Auto) 5.8 Lymph # (Auto) 2.5 [place] # (Auto) 0.6 Eos # (Auto) 0.1 Baso # (Auto) 0.1 Absolute Nucleated RBC 0.00 Nucleated RBC % 0.0 Sodium 135 Potassium 4.0 Chloride 103 Carbon Dioxide 28 Anion Gap 4.0 L BUN 9 Creatinine 1.0 Estimated GFR (MDRD) 76 L Glucose 112 H Calcium 9.2 Total Bilirubin 0.4 AST 19 ALT 16 Alkaline Phosphatase 74 Total Protein 7.8 Albumin 3.6 Globulin 4.2 Albumin/Globulin Ratio 0.9 L Lipase 25 HCG, Quant Urine Color YELLOW Urine Clarity CLEAR Urine pH 5.5 Ur Specific [place] 1.025 Urine Protein NEGATIVE Urine Glucose (UA) NEGATIVE Urine Ketones NEGATIVE Urine Occult Blood SMALL H Urine Nitrite NEGATIVE Urine Bilirubin NEGATIVE Urine Urobilinogen 0.2 (NORMAL) Ur Leukocyte Esterase NEGATIVE Urine RBC 0-5 Urine WBC 0-3 Ur Squamous Epith Cells RARE Squamous Urine Bacteria Few Ur Microscopic Review INDICATED Urine Culture Comments NOT INDICATED 10/01/22 14:57 WBC RBC Hgb Hct MCV MCH MCHC RDW Plt Count MPV Neut # (Auto) Lymph # (Auto) [place] # (Auto) Eos # (Auto) Baso # (Auto) Absolute Nucleated RBC Nucleated RBC % Sodium Potassium Chloride Carbon Dioxide Anion Gap BUN Creatinine Estimated GFR (MDRD) Glucose Calcium Total Bilirubin AST ALT Alkaline Phosphatase Total Protein Albumin Globulin Albumin/Globulin Ratio Lipase HCG, Quant 2266.00 Urine Color Urine Clarity Urine pH Ur Specific [place] Urine Protein Urine Glucose (UA) Urine Ketones Urine Occult Blood Urine Nitrite Urine Bilirubin Urine Urobilinogen Ur Leukocyte Esterase Urine RBC Urine WBC Ur Squamous Epith Cells Urine Bacteria Ur Microscopic Review Urine Culture Comments - Rads (name of study) OB Us Relevant Findings:: Final report received, Discussed with chato PD Medical Decision Making - ED course Complexity details: reviewed results, re-evaluated patient, considered differential, d/w patient ED course: 36-year-old female 6 para 3, approximately 5 weeks . Her ultrasound does not yet show a pole. There is a gestational sac. It is the same size as her ultrasound a week ago. Her hCG level is similar to yesterday's, mildly decreased from 2 days before that. Possible that the patient is having a miscarriage. Recommend that she follow-up closely with her doctor for serial hCGs and possible serial ultrasound. No evidence of ectopic . No pain. Abdomen is soft, nontender nondistended. Patient counseled regarding signs and symptoms for which I believe and urgent re- evaluation would be necessary. Patient with good understanding of and agreement to plan and is comfortable going home at this time This document was made in part using voice recognition software. While efforts are made to proofread this document, sound alike and grammatical errors may occ ur. Departure - Departure Disposition: 01 Home, Self Care Clinical Impression: Threatened in early Condition: Good Instructions: ED Miscarriage Poss Follow-Up: Shirley Peterson ARNP [Provider Admit Priv/Credential] - Within 3 Days Comments: Your hCG level today is 2266. It was 2248 yesterday and 2391 shows evidence of a gestational sac but no definite pole or yolk sac seen. Your OB provider will need to follow your hCG levels and likely a serial ultrasound in 1 to 2 weeks. Please follow-up with your provider for further care. Please return if you worsen. PROCEDURE: OB First Trimester w/TV INDICATIONS: 5 weeks preg, +vb OUTSIDE/PRIOR DATING DATA: Last menstrual period (LMP): 08/01/2022. LMP-based estimated date of delivery (SHAYY): 05/08/2023. First dating scan (date and location): 09/25/2022. Estimated date of delivery (SHAYY) from first dating scan: 05/24/2023. TECHNIQUE: Real-time scanning was performed of the fetus and maternal pelvic organs, with image documentation. Endovaginal scanning was also performed to better visualize the fetus and maternal ovaries. COMPARISON: 09/25/2022 FINDINGS: Intrauterine gestational sac present. Embryo: Mean gestational sac size 0.92 cm: 5 weeks 5 days, no definite pole is identified. Heart rate: Not identified. A pole is seen. No yolk sac is present Other: No perigestational fluid collection. Maternal organs: Ovaries appear within normal limits. A subcentimeter cyst adjacent to the uterus is of uncertain etiology with no internal or surrounding flow. IMPRESSION: Gestational sac is identified. No definite pole or yolk sac is seen. Recommend correlation with quantitative hCG and recommend follow-up ultrasound. Discharge Date/Time: 10/01/22 16:00
== END 2022-10-01 16:00 | disposition home or self-care (01) ==
LOC: ED 12:55
DX: O20.0 Threatened abortion (principal); Z3A.01 Less than 8 weeks gestation of pregnancy
CPT/HCPCS: 36415; 80053; 81001; 81003; 81514; 83690; 84702; 85025; 87086; 99283; 99284

== ENCOUNTER 2022-12-14 08:00 | Outpatient (CLI) | payer MEDICAID, OTHER ==
[2022-12-14 11:21] LABS: BILIRUBIN,URINE NEGATIVE (NEGATIVE); GLUCOSE, URINE (UA) NEGATIVE (NEGATIVE); KETONES,URINE (UA) NEGATIVE (NEGATIVE); LEUKOCYTE ESTERASE, URINE SMALL (NEGATIVE); NITRITE,URINE NEGATIVE (NEGATIVE); OCCULT BLOOD,URINE NEGATIVE (NEGATIVE); PH,URINE 6.5 PH (5.0-7.5); PROTEIN,URINE NEGATIVE (NEGATIVE); UROBILINOGEN,URINE 0.2 (NORMAL) E.U./dL (NORMAL)
[2022-12-14 11:22] LABS: CLARITY,URINE CLEAR (CLEAR)
[2022-12-14 12:02] LABS: BACTERIA,URINE Few /HPF (None Seen); RBC,URINE 0-5 /HPF (0-5); SQUAMOUS EPITHELIAL CELL,UR MOD Squamous (<= Few); WBC,URINE 0-3 /HPF (0-5)
== END 2022-12-14 23:59 | disposition home or self-care (01) ==
LOC: LAB.WC 08:00
PROVIDERS: ATTEND Nurse Practitioner
DX: Z34.90 Encounter for supervision of normal pregnancy, unspecified, unspecified trimester (principal)
CPT/HCPCS: 81001; 87086

== ENCOUNTER 2023-01-01 08:00 | Outpatient (CLI) | payer MEDICAID ==
[2023-01-01 21:59] LABS: CHLAMYDIA TRACHOMATIS DNA NEGATIVE (NEGATIVE); NEISSERIA GONORRHOEAE DNA NEGATIVE (NEGATIVE); TRICHOMONAS VAGINALIS DNA NEGATIVE (NEGATIVE)
== END 2023-01-01 23:59 | disposition home or self-care (01) ==
LOC: LAB.WC 08:00
PROVIDERS: ATTEND Obstetrics & Gynecology
DX: Z11.3 Encounter for screening for infections with a predominantly sexual mode of transmission (principal)
CPT/HCPCS: 87491; 87591; 87661

== ENCOUNTER 2023-01-04 09:33 | Outpatient (CLI) | payer MEDICAID | END 2023-01-04 09:34 | disposition home or self-care (01) | LOC: LAB.N 09:33 | PROVIDERS: ATTEND Obstetrics & Gynecology | DX: Z53.9 Procedure and treatment not carried out, unspecified reason (principal) ==

== ENCOUNTER 2023-01-04 10:52 | Outpatient (CLI) | payer MEDICAID ==
[2023-01-04 11:14] LABS: BASOPHILS # (AUTO) 0.1 10^3/uL (0.0-0.1); BASOPHILS % (AUTO) 0.9 %; EOSINOPHILS % (AUTO) 0.7 %; HCT - HEMATOCRIT 37.8 % (37.0-47.0); HGB - HEMOGLOBIN 12.2 g/dL (12.0-16.0); LYMPHOCYTES # (AUTO) 1.8 10^3/uL (1.5-3.5); LYMPHOCYTES % (AUTO) 29.9 %; MEAN CORPUSCULAR HEMOGLOBIN 26.6 pg (27.0-31.0); MEAN CORPUSCULAR HGB CONC 32.3 g/dL (32.0-36.0); MEAN CORPUSCULAR VOLUME 82.5 fL (81.0-99.0); MEAN PLATELET VOLUME 8.7 fL (7.9-10.8); MONOCYTES # (AUTO) 0.4 10^3/uL (0.0-1.0); NEUTROPHILS # (AUTO) 3.7 10^3/uL (1.5-6.6); NEUTROPHILS % (AUTO) 62.3 %; PLT - PLATELET COUNT 342 10^3/uL (130-450); RED BLOOD COUNT 4.58 10^6/uL (4.20-5.40); RED CELL DISTRIBUTION WIDTH 12.7 % (12.0-15.0); WHITE BLOOD COUNT 5.9 x10^3/uL (4.8-10.8)
[2023-01-05 02:08] LABS: HBsAG SCREEN Negative (Negative); HIV SCREEN 4TH GENERATION Non Reactive (Non Reactive)
[2023-01-05 04:09] LABS: HCV AB Non Reactive (Non Reactive)
[2023-01-05 07:10] LABS: RPR Non Reactive (Non Reactive)
[2023-01-05 08:10] LABS: VARICELLA-ZOSTER AB IGG 2810 index (Immune >165)
== END 2023-01-04 10:53 | disposition home or self-care (01) ==
LOC: LAB 10:52
PROVIDERS: ATTEND Nurse Practitioner
DX: O09.521 Supervision of elderly multigravida, first trimester (principal)
CPT/HCPCS: 36415; 85025; 86592; 86762; 86787; 86803; 86850; 86900; 86901; 87340; 87389

== ENCOUNTER 2023-01-25 08:42 | Emergency (ER) | payer MEDICAID ==
[2023-01-25 09:07] VITALS: O2SAT 100
[2023-01-25 10:12] LABS: RAPID STREP SCREEN Negative (Negative)
--- NOTE | 2023-01-25 10:22 | ED Physician Documentation ---
PD HPI URI - Stated complaint Stated Complaint: CONGESTED,NOSEBLEED, - Chief complaint Chief Complaint: Heent - History obtained from History obtained from: Patient - Additional information Additional information: Patient is a 37-year-old female who is approximately 12 weeks presenting for evaluation of 2-day history of sore throat, cough, congestion and sinus pressure. Patient's 2 children are here with similar symptoms. She has not taken a COVID test. No reported fevers. She has not tried anything for her symptoms. Denies abdominal pain or cramping, vaginal bleeding or discharge.She has had a confirmatory ultrasound for this . She is taking vitamins. Review of Systems Constitutional: denies: Fever Nose: reports: Congestion, Sinus pressure / pain Throat: reports: Sore throat Cardiac: denies: Chest pain / pressure Respiratory: reports: Cough. 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 HEENT: None Psych: None Musculoskeletal: None Derm: Eczema - Past Surgical History Past Surgical History: No - Present Medications Home Medications: Ambulatory Orders Medication Instructions Recorded Confirmed Pnv No.95/Ferrous Fum/Folic AC 1 each PO DAILY 01/04/20 06/15/20 [ Formula] Cyclobenzaprine [Flexeril] 10 mg PO TID PRN #20 tab 05/30/20 06/15/20 Triamcinolone 0.1% Oint 1 gm TOP BID #80 g 06/15/20 Benzonatate [Tessalon] 100 mg PO TID PRN #20 cap 05/30/21 dexAMETHasone [Decadron] 4 mg PO DAILY #5 tablet 05/30/21 Norgestimate-Ethinyl Estradiol 1 each PO TID #1 packet 11/25/21 [Ortho Tri-Cyclen 28 Tablet] - Allergies Allergies/Adverse Reactions: Allergies Allergy/AdvReac Type Severity Reaction Status Date / Time No Known Drug Allergies Allergy Verified 01/25/23 08:58 - Social History Does the pt smoke?: No Smoking Status: Never smoker Does the pt drink ETOH?: No Does the pt have substance abuse?: No - Immunizations Immunizations are current?: Yes - POLST Patient has POLST: No PD ED PE NORMAL - General General: Alert and oriented X 3, No acute distress, Well developed/nourished - HEENT HEENT: Atraumatic, Moist mucous membranes, Pharynx benign - Neck Neck: Supple, no meningeal sign - Cardiac Cardiac: RRR, No murmur - Respiratory Respiratory: No respiratory distress, Clear bilaterally - Abdomen Abdomen: Soft, Non tender - Derm Derm: Warm and dry - Neuro Neuro: Normal speech Results - Vitals Vitals: Vital Signs - 24 hr 01/25/23 01/25/23 08:56 10:52 Temperature 36.6 C Heart Rate 90 87 Respiratory 20 15 Rate Blood Pressure 119/70 117/65 O2 Saturation 100 100 Oxygen O2 Source Room air - Labs Labs: Laboratory Tests 01/25/23 01/25/23 09:50 10:45 Nasal Influenza B PCR NOT DETECTED Nasal Influenza A PCR NOT DETECTED Nasal RSV (PCR) NOT DETECTED Nasal SARS-CoV-2 (PCR) NOT DETECTED Group A Strep Rapid Negative PD Medical Decision Making - ED course ED course: Patient with URI symptoms for the past 2 days. She is 12 weeks but is not having any abdominal symptoms or vaginal bleeding or discharge. Her vital signs are stable. Her lung sounds are clear. Patient's 2 younger children are also here with similar symptoms. As she is I did offer a COVID and flu swab which she is agreeable to. Patient counseled on continued supportive care as well as concerning symptoms to return for. Swab is negative for COVID, RSV and flu. Departure - Departure Disposition: 01 Home, Self Care Clinical Impression: Upper respiratory infection Condition: Stable Instructions: ED URI Viral Comments: Your strep test is negative. Your COVID and influenza tests are pending. I will give you a call later today if either of these tests are positive. In the meanwhile please continue with acetaminophen as needed for fevers or body aches, plenty of rest, hydration. You can try and saline sprays in the nose for nasal congestion as well as [id number] allergy medication such as Zyrtec. Return to the emergency department with any worsening symptoms such as labored breathing. Forms: PCP List Discharge Date/Time: 01/25/23 10:53
[2023-01-25 10:59] VITALS: BP 117/65
[2023-01-25 11:54] LABS: INFLUENZA A- RESP PCR PANEL NOT DETECTED; INFLUENZA B - RESP PCR PANEL NOT DETECTED; RSV- RESP PCR PANEL NOT DETECTED; SARS-CoV-2 -RESP PCR PANEL NOT DETECTED
== END 2023-01-25 10:53 | disposition home or self-care (01) ==
LOC: ED 08:42
DX: O99.511 Diseases of the respiratory system complicating pregnancy, first trimester (principal); J06.9 Acute upper respiratory infection, unspecified; Z3A.12 12 weeks gestation of pregnancy; Z20.822 Contact with and (suspected) exposure to COVID-19
CPT/HCPCS: 87070; 87430; 87637; 99283

== ENCOUNTER 2023-02-20 11:23 | Outpatient (CLI) | payer MEDICAID ==
[2023-02-20 12:07] LABS: THYROID STIMULATING HORMONE 2.12 uIU/mL (0.34-5.60)
[2023-02-26 13:09] LABS: AFP MOM See interpretation. (.); AFP VALUE 41.2 ng/mL (.); GESTAT. AGE METHOD Ultrasound (.); INSULIN DEP DIABETES No (.); MATERNAL AGE AT EDD 38.8 yr (.); MULTIPLE GESTATION No (.); OPEN SPINA BIFIDA RISK 1 IN See interpretation. (.); RACE Black (.); RESULTS Report (.); TEST RESULTS See interpretation. (.); WEIGHT 217 lbs (.)
== END 2023-02-20 11:24 | disposition home or self-care (01) ==
LOC: LAB 11:23
PROVIDERS: ATTEND Obstetrics & Gynecology
DX: O09.521 Supervision of elderly multigravida, first trimester (principal); O99.211 Obesity complicating pregnancy, first trimester; E66.9 Obesity, unspecified
CPT/HCPCS: 36415; 82105; 84443

== ENCOUNTER 2023-03-05 07:57 | Outpatient (CLI) | payer MEDICAID | END 2023-03-05 07:58 | disposition home or self-care (01) | LOC: LAB.N 07:57 | PROVIDERS: ATTEND Obstetrics & Gynecology | DX: O09.521 Supervision of elderly multigravida, first trimester (principal); O99.211 Obesity complicating pregnancy, first trimester; E66.9 Obesity, unspecified | CPT/HCPCS: 36415; 82950 ==

== ENCOUNTER 2023-04-06 15:55 | Outpatient (CLI) | payer MEDICAID ==
--- NOTE | 2023-04-09 02:53 | Ultrasound Report ---
PROCEDURE: OB Anatomy Scan INDICATIONS: SUPERVISION OF ELDERLY MULTIGRAVIDA OUTSIDE/PRIOR DATING DATA: Last menstrual period (LMP): . LMP-based estimated date of delivery (SHAYY): . First dating scan (date and location): . Estimated date of delivery (SHAYY) from first dating scan: . The below data below was generated using the SHAYY of TECHNIQUE: Real-time scanning was performed of the fetus, with image documentation and biometric measurements. Endovaginal scanning: Not performed. COMPARISON: 12/21/2022. FINDINGS: General: A single living intrauterine gestation is present. Presentation: Vertex Placenta: Placental position is anterior, without previa. Amniotic fluid index: 15.7 cm, within normal limits for gestational age. heart rate: 133 beats per minute. Maternal cervical canal: 5.2 cm long; normal length is 2.5 cm or more. biometrics: Biparietal diameter: 5.5 cm Head circumference: 21.0 Abdominal circumference: 18.9 Femur length: 4.1 Estimated gestational age from initial scan: 22 weeks, 1 day Composite gestational age from present scan: 23 weeks, 0 days Estimated weight and percentile: 593.2 g, 95th percentile Measurement variability in biometric dating: +/- 10 days from 12-20 weeks gestation, +/- 2 weeks from 20-30 weeks gestation, +/- 3 weeks at 30 weeks gestation or later. Anatomic survey: Neuro: Ventricles are normal at less than 10 mm. Cisterna magna is normal at 3-11 mm. Cerebellum i s normal in size and morphology. Nuchal skin fold: Normal at less than 6 mm between 14 and 20 weeks gestational age. Face: Nose and lips, facial profile are normal. Spine: No evidence for spina bifida. Heart: 4-chambered heart is present, with normal ventricular outflow tracts. Diaphragm: Diaphragm is intact. Stomach: Left-sided stomach is present. Kidneys: No hydronephrosis. Normal is less than 5 mm in 2nd trimester, less than 7 mm in 3rd trimester. Cord: 3 vessel cord has orthotopic insertion. Bladder: Normal in size. Extremities: All 4 extremities are visualized. IMPRESSION: Single intrauterine gestation with biometry concordant with clinical dates. Estimated [place]son ght is 95th percentile. Anterior placenta without previa. Normal SHITAL. Normal anatomic survey. Reviewed by: Amarilis Cartwright MD on 04/09/2023 2:52 AM PST Approved by: Amarilis Cartwright MD on 04/09/2023 2:52 AM PST Station ID: [id number]
== END 2023-04-06 15:56 | disposition home or self-care (01) ==
LOC: DI 15:55
PROVIDERS: ATTEND Obstetrics & Gynecology
DX: O09.522 Supervision of elderly multigravida, second trimester (principal); Z3A.23 23 weeks gestation of pregnancy

== ENCOUNTER 2023-04-10 01:32 | Outpatient (CLI) | payer MEDICAID ==
[2023-04-10 02:12] VITALS: BP 121/65
[2023-04-10] MEDS ORDERED: ONDANSETRON ODT 4 MG TABLET TL PRN (02:55)
--- NOTE | 2023-04-10 02:57 | PROVIDER PROGRESS NOTE ---
- HPI Chief Complaint: symptoms Current : Vital Signs Temperature 98.8 F 04/10/23 01:36 Heart Rate 104 H 04/10/23 01:36 Respiratory Rate 18 04/10/23 01:36 Blood Pressure 121/65 04/10/23 01:36 Temperature 98.8 F 04/10/23 01:36 Heart Rate 104 H 04/10/23 01:36 Respiratory Rate 18 04/10/23 01:36 Blood Pressure 121/65 04/10/23 01:36 O2 Saturation If not protocol: Oxygen Flow, liters/minute - Plan Plan: Patient is a 37-year-old -0-3-3 at 22 weeks 6 days gestation here for nausea and vomiting. She comes to triage for nausea vomiting, diarrhea since around 1930. She thinks this started approximately 30 minutes after eating chicken nachos from [employer]. She has no other household members with symptoms. She has felt baby move since being here. No leaking or bleeding. No contractions. She has intermittent sharp crampy abdominal pain, that seems to coincide with feeling of nausea. Physical Exam Constitutional: alert, no acute distress, well hydrated, well developed, well nourished, appropriate dress. Cardiovascular: Regular rate and rhythm. Respiratory: no respiratory distress. Abdomen: nondistended, nontender, no guarding. Psych: affect and mood appropriate, normal interaction, good eye contact. heart tracin beats per baseline, appropriate for gestational age Assessment and plan Gastroenteritis -We discussed the usually self-limiting nature of gastroenteritis. She has had persistent vomiting and some episodes of diarrhea since this evening. We did discuss the etiologies of nausea and vomiting and that this is likely a self- limiting, viral disease. Explained that many families have complained of similar issues recently and is less likely related to her food, although still a possibility. She should practice good hand hygiene and avoid contaminating food or coming contact with others. Advised to remain out of work for 48 hours. If still having symptoms, should consider a longer. -P.o. challenge successful with juice and crackers. Encouraged small meals and frequent sips. Hydration is the most important thing for her at this stage. -JESÚS Malone sent to patient's pharmacy.
== END 2023-04-10 03:25 | disposition home or self-care (01) ==
LOC: WFO 01:32 → FBP 01:34 → WFO 03:25
PROVIDERS: ATTEND Obstetrics & Gynecology
DX: O99.612 Diseases of the digestive system complicating pregnancy, second trimester (principal); K52.9 Noninfective gastroenteritis and colitis, unspecified; Z3A.22 22 weeks gestation of pregnancy
CPT/HCPCS: 99214; Q0162

== ENCOUNTER 2023-06-07 11:10 | Outpatient (CLI) | payer MEDICAID ==
[2023-06-07 11:39] LABS: GTT GLUCOSE,FASTING 86 mg/dL (74-109)
[2023-06-07 11:55] LABS: CREATININE,URINE 264.5 mg/dL; PROTEIN/CREATININE RATIO,URINE 0.1 (<=0.2)
[2023-06-07 12:29] LABS: HCT - HEMATOCRIT 30.7 % (37.0-47.0); HGB - HEMOGLOBIN 9.8 g/dL (12.0-16.0); MEAN CORPUSCULAR HEMOGLOBIN 27.5 pg (27.0-31.0); MEAN CORPUSCULAR HGB CONC 31.9 g/dL (32.0-36.0); MEAN CORPUSCULAR VOLUME 86.2 fL (81.0-99.0); MEAN PLATELET VOLUME 9.1 fL (7.9-10.8); RED BLOOD COUNT 3.56 10^6/uL (4.20-5.40); RED CELL DISTRIBUTION WIDTH 13.3 % (12.0-15.0); WHITE BLOOD COUNT 9.2 x10^3/uL (4.8-10.8)
[2023-06-07 12:58] LABS: ESTIMATED AVERAGE GLUCOSE 114 mg/dL (70-100); HEMOGLOBIN A1c% 5.6 % (4.27-6.07)
[2023-06-07 13:31] LABS: THYROID STIMULATING HORMONE 1.3 uIU/mL (0.34-5.60)
== END 2023-06-07 11:11 | disposition home or self-care (01) ==
LOC: LAB 11:10
PROVIDERS: ATTEND Obstetrics & Gynecology
DX: O99.810 Abnormal glucose complicating pregnancy (principal); O09.522 Supervision of elderly multigravida, second trimester; O99.212 Obesity complicating pregnancy, second trimester; E66.9 Obesity, unspecified
CPT/HCPCS: 36415; 82570; 82951; 82952; 83036; 84156; 84443; 85027

== ENCOUNTER 2023-06-18 11:24 | Outpatient (CLI) | payer MEDICAID ==
--- NOTE | 2023-06-18 13:36 | Ultrasound Report ---
PROCEDURE: OB Follow up INDICATIONS: EXCESSIVE GROWTH OUTSIDE/PRIOR DATING DATA: Last menstrual period (LMP): Unknown. LMP-based estimated date of delivery (SHAYY): Unknown. First dating scan (date and location): 12/21/2022. Estimated date of delivery (SHAYY) from first dating scan: 08/09/2023. The below data below was generated using the ultrasound SHAYY of 08/09/2023 TECHNIQUE: Real-time scanning was performed of the fetus, with image documentation and biometric measurements. Endovaginal scanning: Not performed. COMPARISON: 04/06/2023 FINDINGS: General: A single living intrauterine gestation is present. Presentation: Vertex Placenta: Placental position is anterior, without previa. Amniotic fluid index: 10.3 cm, within normal limits for gestational age. heart rate: 127 beats per minute. Maternal cervical canal: 4.8 cm long; normal length is 2.5 cm or more. biometrics: Biparietal diameter: 8.3 cm, 33 weeks 2 days Head circumference: 30.7 cm, 34 weeks 1 day Abdominal circumference: 30.2 cm, 34 weeks 1 day Femur length: 6.3 cm, 32 weeks 4 days Estimated gestational age from initial scan: 32 weeks 4 days Composite gestational age from present scan: 33 weeks 4 days Estimated weight and percentile: 2251 g, 75th percentile Measurement variability in biometric dating: +/- 10 days from 12-20 weeks gestation, +/- 2 weeks from 20-30 weeks gestation, +/- 3 weeks at 30 weeks gestation or more. Other: Not applicable. IMPRESSION: 1.Single live intrauterine consistent with 33 weeks and 4 days. 2.Estimated weight is in the 75th percentile. Reviewed by: Jimbo Mcdonnell MD on 06/18/2023 1:35 PM PDT Approved by: Jimbo Mcdonnell MD on 06/18/2023 1:35 PM PDT Station ID: [id number]
== END 2023-06-18 11:25 | disposition home or self-care (01) ==
LOC: DI 11:24
PROVIDERS: ATTEND Obstetrics & Gynecology
DX: O36.63X0 Maternal care for excessive fetal growth, third trimester, not applicable or unspecified (principal); Z3A.33 33 weeks gestation of pregnancy

== ENCOUNTER 2023-07-05 09:05 | Outpatient (CLI) | payer MEDICAID ==
[2023-07-05 09:39] LABS: BASOPHILS % (AUTO) 0.3 %; EOSINOPHILS # (AUTO) 0.1 10^3/uL (0.0-0.7); EOSINOPHILS % (AUTO) 0.6 %; LYMPHOCYTES # (AUTO) 1.5 10^3/uL (1.5-3.5); LYMPHOCYTES % (AUTO) 19.3 %; MEAN CORPUSCULAR HEMOGLOBIN 27.3 pg (27.0-31.0); MEAN CORPUSCULAR HGB CONC 32.3 g/dL (32.0-36.0); MEAN CORPUSCULAR VOLUME 84.7 fL (81.0-99.0); MEAN PLATELET VOLUME 9.4 fL (7.9-10.8); MONOCYTES # (AUTO) 0.6 10^3/uL (0.0-1.0); MONOCYTES % (AUTO) 7.1 %; NEUTROPHILS # (AUTO) 5.8 10^3/uL (1.5-6.6); NEUTROPHILS % (AUTO) 71.9 %; PLT - PLATELET COUNT 242 10^3/uL (130-450); RED BLOOD COUNT 3.66 10^6/uL (4.20-5.40); RED CELL DISTRIBUTION WIDTH 13.5 % (12.0-15.0)
[2023-07-05 10:05] VITALS: BP 117/69; O2SAT 100
--- NOTE | 2023-07-05 10:15 | PROVIDER PROGRESS NOTE ---
- HPI Current : Vital Signs Temperature 98.1 F 07/05/23 09:58 Temperature 98.1 F 07/05/23 09:59 Heart Rate 87 07/05/23 09:59 Respiratory Rate 16 07/05/23 09:59 Blood Pressure 117/69 07/05/23 09:59 O2 Saturation 100 07/05/23 09:59 If not protocol: Oxygen Flow, liters/minute - Procedures OB Procedure Performed: NST Diagnosis/Indication for NST: Decreased movement NST Procedure: NST Procedure Start Date 07/05/23 Start Time 09:20 Stop Time 09:50 Vibroacoustic Stimulation Used No - Plan Plan: Patient is a 37-year-old at 35 weeks gestation complaining of dizziness and lightheadedness that lasted for about 3 minutes when standing up. Had some vision changes but feels better now. Has good movement. No contractions, leaking, bleeding. Does say she has slight blurred vision that is improving. Has not eaten anything today. Did not sleep well last night with frequent wakings. Physical Exam Constitutional: alert, no acute distress, well hydrated, well developed, well nourished, appropriate dress. Cardiovascular: Regular rate and rhythm. Respiratory: no respiratory distress. Abdomen: nondistended, nontender, no guarding. Psych: affect and mood appropriate, normal interaction, good eye contact. FHT: 125 bpm baseline, moderate variability, accelerations present, no decelerations. Reactive NST [place]: Occasional Laboratory Last Values WBC 8.0 x10^3/uL (4.8-10.8) 07/05/23 09:25 RBC 3.66 10^6/uL (4.20-5.40) L 07/05/23 09:25 Hgb 10.0 g/dL (12.0-16.0) L 07/05/23 09:25 Hct 31.0 % (37.0-47.0) L 07/05/23 09:25 MCV 84.7 fL (81.0-99.0) 07/05/23 09:25 MCH 27.3 pg (27.0-31.0) 07/05/23 09:25 MCHC 32.3 g/dL (32.0-36.0) 07/05/23 09:25 RDW 13.5 % (12.0-15.0) 07/05/23 09:25 Plt Count 242 10^3/uL (130-450) 07/05/23 09:25 MPV 9.4 fL (7.9-10.8) 07/05/23 09:25 Neut # (Auto) 5.8 10^3/uL (1.5-6.6) 07/05/23 09:25 Lymph # (Auto) 1.5 10^3/uL (1.5-3.5) 07/05/23 09:25 [place] # (Auto) 0.6 10^3/uL (0.0-1.0) 07/05/23 09:25 Eos # (Auto) 0.1 10^3/uL (0.0-0.7) 07/05/23 09:25 Baso # (Auto) 0.0 10^3/uL (0.0-0.1) 07/05/23 09:25 Absolute Nucleated RBC 0.00 x10^3/uL 07/05/23 09:25 Nucleated RBC % 0.0 /100WBC 07/05/23 09:25 Sodium 134 mmol/L (135-145) L 07/05/23 09:25 Potassium 3.6 mmol/L (3.5-4.5) 07/05/23 09:25 Chloride 104 mmol/L (101-111) 07/05/23 09:25 Carbon Dioxide 22 mmol/L (21-32) 07/05/23 09:25 Anion Gap 8.0 (6-13) 07/05/23 09:25 BUN 4 mg/dL (6-20) L 07/05/23 09:25 Creatinine 0.6 mg/dL (0.6-1.3) 07/05/23 09:25 Estimated GFR (MDRD) 136 (>89) 07/05/23 09:25 Glucose 88 mg/dL (74-104) 07/05/23 09:25 Calcium 9.0 mg/dL (8.5-10.3) 07/05/23 09:25 Total Bilirubin 0.2 mg/dL (0.2-1.0) 07/05/23 09:25 AST 13 IU/L (10-42) 07/05/23 09:25 ALT 9 IU/L (10-60) L 07/05/23 09:25 Alkaline Phosphatase 102 IU/L (42-121) 07/05/23 09:25 Total Protein 6.7 g/dL (6.4-8.9) 07/05/23 09:25 Albumin 3.3 g/dL (3.2-5.5) 07/05/23 09:25 Globulin 3.4 g/dL (2.1-4.2) 07/05/23 09:25 Albumin/Globulin Ratio 1.0 (1.0-2.2) 07/05/23 09:25 Urine Creatinine 183.5 mg/dL 07/05/23 10:15 Ur Total Protein Timed 20 mg/dL 07/05/23 10:15 Protein/Creatinin Ratio 0.1 (<=0.2) 07/05/23 10:15 Assessment and plan: Dizziness: Resolved. Likely vasovagal response upon standing this morning. Has felt better with resting. Has not eaten anything. Encouraged rest, sleep, eating. If after rest, still having symptoms, will call us.
[2023-07-05 10:28] LABS: ALBUMIN 3.3 g/dL (3.2-5.5); BILIRUBIN,TOTAL 0.2 mg/dL (0.2-1.0); CREATININE 0.6 mg/dL (0.6-1.3); POTASSIUM 3.6 mmol/L (3.5-4.5); TOTAL PROTEIN 6.7 g/dL (6.4-8.9)
[2023-07-05 10:42] LABS: CREATININE,URINE 183.5 mg/dL; PROTEIN/CREATININE RATIO,URINE 0.1 (<=0.2)
== END 2023-07-05 11:00 | disposition home or self-care (01) ==
LOC: WFO 09:05 → FBP 09:06 → WFO 11:00
PROVIDERS: ATTEND Obstetrics & Gynecology
DX: O99.891 Other specified diseases and conditions complicating pregnancy (principal); R42 Dizziness and giddiness; O36.8130 Decreased fetal movements, third trimester, not applicable or unspecified; Z3A.35 35 weeks gestation of pregnancy
CPT/HCPCS: 36415; 59025; 80053; 82570; 84156; 85025; 99215

== ENCOUNTER 2023-07-09 17:03 | Outpatient (CLI) | payer MEDICAID ==
[2023-07-09] MEDS: ONDANSETRON ODT 4 MG TABLET TL PRN (17:35)
[2023-07-09 17:57] LABS: BASOPHILS % (AUTO) 0.2 %; EOSINOPHILS # (AUTO) 0.1 10^3/uL (0.0-0.7); EOSINOPHILS % (AUTO) 0.5 %; HCT - HEMATOCRIT 33.2 % (37.0-47.0); HGB - HEMOGLOBIN 10.7 g/dL (12.0-16.0); LYMPHOCYTES # (AUTO) 1.2 10^3/uL (1.5-3.5); LYMPHOCYTES % (AUTO) 12.1 %; MEAN CORPUSCULAR HEMOGLOBIN 27.4 pg (27.0-31.0); MEAN CORPUSCULAR HGB CONC 32.2 g/dL (32.0-36.0); MEAN CORPUSCULAR VOLUME 84.9 fL (81.0-99.0); MONOCYTES # (AUTO) 0.6 10^3/uL (0.0-1.0); MONOCYTES % (AUTO) 6.4 %; NEUTROPHILS # (AUTO) 7.7 10^3/uL (1.5-6.6); NEUTROPHILS % (AUTO) 80.2 %; PLT - PLATELET COUNT 288 10^3/uL (130-450); RED BLOOD COUNT 3.91 10^6/uL (4.20-5.40); RED CELL DISTRIBUTION WIDTH 13.5 % (12.0-15.0); WHITE BLOOD COUNT 9.6 x10^3/uL (4.8-10.8)
--- NOTE | 2023-07-09 18:00 | PROVIDER PROGRESS NOTE ---
- HPI Chief Complaint: GI symptoms - Procedures Diagnosis/Indication for NST: Other (Nausea and vomiting.) NST Procedure: NST Procedure Start Time 09:20 Stop Time 09:50 - Plan Plan: Patient is a 37-year-old -0-0-2 at 35 weeks 4 days gestation presenting today for 1 day of nausea and vomiting. She has not taken thing at home. She also complains of upper abdomen pain that starts with nausea that is relieved afterwards. She does not have pain in between episodes. Does states she has not eaten anything since yesterday. She is trying to keep down small amounts of fluid but this is admittedly vomited up. No solid food today. She also complains of itching of her belly relieved with hydrocortisone. She has small amount of itching on her hands and feet, but this waxes and wanes. Physical Exam Constitutional: alert, no acute distress, well hydrated, well developed, well nourished, appropriate dress. Cardiovascular: Regular rate and rhythm. Respiratory: no respiratory distress. Abdomen: nondistended, nontender, no guarding. No visible rash. Psych: affect and mood appropriate, normal interaction, good eye contact. FHT: 125 beats per baseline, moderate variability, accelerations present, no decelerations. [place]: 2-6 with periods of irregularity. Have been spacing out since orally hydrating. SVE: 0/0/-3, soft, posterior Laboratory Last Values WBC 9.6 x10^3/uL (4.8-10.8) 07/09/23 17:45 RBC 3.91 10^6/uL (4.20-5.40) L 07/09/23 17:45 Hgb 10.7 g/dL (12.0-16.0) L 07/09/23 17:45 Hct 33.2 % (37.0-47.0) L 07/09/23 17:45 MCV 84.9 fL (81.0-99.0) 07/09/23 17:45 MCH 27.4 pg (27.0-31.0) 07/09/23 17:45 MCHC 32.2 g/dL (32.0-36.0) 07/09/23 17:45 RDW 13.5 % (12.0-15.0) 07/09/23 17:45 Plt Count 288 10^3/uL (130-450) 07/09/23 17:45 MPV 10.0 fL (7.9-10.8) 07/09/23 17:45 Neut # (Auto) 7.7 10^3/uL (1.5-6.6) H 07/09/23 17:45 Lymph # (Auto) 1.2 10^3/uL (1.5-3.5) L 07/09/23 17:45 [place] # (Auto) 0.6 10^3/uL (0.0-1.0) 07/09/23 17:45 Eos # (Auto) 0.1 10^3/uL (0.0-0.7) 07/09/23 17:45 Baso # (Auto) 0.0 10^3/uL (0.0-0.1) 07/09/23 17:45 Absolute Nucleated RBC 0.00 x10^3/uL 07/09/23 17:45 Nucleated RBC % 0.0 /100WBC 07/09/23 17:45 Sodium 133 mmol/L (135-145) L 07/09/23 17:45 Potassium 3.7 mmol/L (3.5-4.5) 07/09/23 17:45 Chloride 103 mmol/L (101-111) 07/09/23 17:45 Carbon Dioxide 22 mmol/L (21-32) 07/09/23 17:45 Anion Gap 8.0 (6-13) 07/09/23 17:45 BUN 4 mg/dL (6-20) L 07/09/23 17:45 Creatinine 0.6 mg/dL (0.6-1.3) 07/09/23 17:45 Estimated GFR (MDRD) 136 (>89) 07/09/23 17:45 Glucose 80 mg/dL (74-104) 07/09/23 17:45 Calcium 9.1 mg/dL (8.5-10.3) 07/09/23 17:45 Total Bilirubin 0.4 mg/dL (0.2-1.0) 07/09/23 17:45 AST 14 IU/L (10-42) 07/09/23 17:45 ALT 9 IU/L (10-60) L 04/08/24 17:45 Alkaline Phosphatase 112 IU/L (42-121) 07/09/23 17:45 Total Protein 7.0 g/dL (6.4-8.9) 07/09/23 17:45 Albumin 3.4 g/dL (3.2-5.5) 07/09/23 17:45 Globulin 3.6 g/dL (2.1-4.2) 07/09/23 17:45 Albumin/Globulin Ratio 0.9 (1.0-2.2) L 07/09/23 17:45 Lipase - < 10 U/L (11-82) L 07/09/23 17:45 Urine Color YELLOW 07/09/23 18:28 Urine Clarity CLOUDY (CLEAR) 07/09/23 18:28 Urine pH 6.0 PH (5.0-7.5) 07/09/23 18:28 Ur Specific [place] 1.025 (1.002-1.030) 07/09/23 18:28 Urine Protein TRACE mg/dL (NEGATIVE) 07/09/23 18:28 Urine Glucose (UA) NEGATIVE mg/dL (NEGATIVE) 07/09/23 18:28 Urine Ketones >=80 mg/dL (NEGATIVE) H 07/09/23 18:28 Urine Occult Blood NEGATIVE (NEGATIVE) 07/09/23 18:28 Urine Nitrite NEGATIVE (NEGATIVE) 07/09/23 18:28 Urine Bilirubin NEGATIVE (NEGATIVE) 07/09/23 18:28 Urine Urobilinogen 1 (NORMAL) E.U./dL (NORMAL) 07/09/23 18:28 Ur Leukocyte Esterase TRACE (NEGATIVE) H 07/09/23 18:28 Urine RBC 0-5 /HPF (0-5) 07/09/23 18:28 Urine WBC 0-3 /HPF (0-5) 07/09/23 18:28 Ur Squamous Epith Cells MANY Squamous (<= Few) H 07/09/23 18:28 Urine Bacteria Moderate /HPF (None Seen) H 07/09/23 18:28 Plan Gastroenteritis -Improved with ondansetron. Tolerated water and apple juice. Declined solids. -Will send prescription to pharmacy -Small meals as tolerated and small frequent sips of water. -Good hand hygiene and safety for others around her. [place] Labor -Vaginal exam unchanged after 2 hours 35 weeks gestation -Routine care. -GBS collected. Will recollect if still at 40 weeks Vaginal discharge -Will follow up out patient for vaginosis panel.
[2023-07-09 18:23] LABS: ALBUMIN 3.4 g/dL (3.2-5.5); ALBUMIN/GLOBULIN RATIO 0.9 (1.0-2.2); BILIRUBIN,TOTAL 0.4 mg/dL (0.2-1.0); CALCIUM 9.1 mg/dL (8.5-10.3); CREATININE 0.6 mg/dL (0.6-1.3); POTASSIUM 3.7 mmol/L (3.5-4.5)
[2023-07-09 18:45] VITALS: BP 122/76
[2023-07-09 18:59] LABS: BILIRUBIN,URINE NEGATIVE (NEGATIVE); GLUCOSE, URINE (UA) NEGATIVE (NEGATIVE); KETONES,URINE (UA) >=80 mg/dL (NEGATIVE); LEUKOCYTE ESTERASE, URINE TRACE (NEGATIVE); NITRITE,URINE NEGATIVE (NEGATIVE); OCCULT BLOOD,URINE NEGATIVE (NEGATIVE); PROTEIN,URINE TRACE mg/dL (NEGATIVE); UROBILINOGEN,URINE 1 (NORMAL) E.U./dL (NORMAL)
[2023-07-09 19:21] LABS: BACTERIA,URINE Moderate /HPF (None Seen); CLARITY,URINE CLOUDY (CLEAR); RBC,URINE 0-5 /HPF (0-5); SQUAMOUS EPITHELIAL CELL,UR MANY Squamous (<= Few); WBC,URINE 0-3 /HPF (0-5)
[2023-07-14 23:07] LABS: URSODEOXYCHOLIC ACIDS <0.10 umol/L (.)
== END 2023-07-09 21:00 | disposition home or self-care (01) ==
LOC: WFO 17:03 → FBP 17:04 → WFO 21:00
PROVIDERS: ATTEND Obstetrics & Gynecology
DX: O99.613 Diseases of the digestive system complicating pregnancy, third trimester (principal); K52.9 Noninfective gastroenteritis and colitis, unspecified; O47.03 False labor before 37 completed weeks of gestation, third trimester; Z3A.35 35 weeks gestation of pregnancy; O99.713 Diseases of the skin and subcutaneous tissue complicating pregnancy, third trimester; L29.9 Pruritus, unspecified; O99.891 Other specified diseases and conditions complicating pregnancy; N89.8 Other specified noninflammatory disorders of vagina
CPT/HCPCS: 36415; 59025; 80053; 81001; 82542; 83690; 85025; 87797; 99215; Q0162; 87081

== ENCOUNTER 2023-07-19 08:11 | Outpatient (CLI) | payer MEDICAID ==
--- NOTE | 2023-07-19 20:52 | Ultrasound Report ---
PROCEDURE: OB Follow up INDICATIONS: OBESITY, SUPERVISION OF OUTSIDE/PRIOR DATING DATA: Last menstrual period (LMP): Unknown. LMP-based estimated date of delivery (SHAYY): Unknown. First dating scan (date and location): 12/21/2022. Estimated date of delivery (SHAYY) from first dating scan: 08/09/2023. The below data below was generated using the working SHAYY of 08/09/2023 TECHNIQUE: Ultrasound of the gravid uterus was performed and recorded. COMPARISON: None. FINDINGS: General: A single live intrauterine gestation is present. Presentation: Cephalic Placenta: Placental position is anterior without previa. Amniotic fluid index: 14.9 cm, 58 percentile for gestational age. heart rate: 129 beats per minute. Maternal cervical canal: 3.7 cm long; normal length is 2.5 cm or more. biometrics: Biparietal diameter: 9.2 cm, 37 week 2 day, 72 percentile Head circumference: 33 cm, 38 week 3 day, 59 percentile Abdominal circumference: 34 cm, 38 week 1 day, 88 percentile Femur length: 6.8 cm, 35 week 0 day, 7.2 percentile Estimated gestational age by working dates: 37 week 0 day Composite gestational age by current ultrasound: 37 week 2 day Estimated weight and percentile: 3175 g, 64th percentile Measurement variability in biometric dating: +/- 10 days from 12-20 weeks gestation, +/- 2 weeks from 20-30 weeks gestation, +/- 3 weeks at 30 weeks gestation or more. Other: Incidental dilated right adnexal vasculature IMPRESSION: Single live intrauterine consistent with 37 week 2 day gestation by current ultrasound Reviewed by: Navarro Marc MD on 07/19/2023 7:50 PM YAJAIRA Approved by: Navarro Marc MD on 07/19/2023 7:50 PM YAJAIRA Station ID: [id number]
== END 2023-07-19 08:12 | disposition home or self-care (01) ==
LOC: DI 08:11
PROVIDERS: ATTEND Obstetrics & Gynecology
DX: O99.213 Obesity complicating pregnancy, third trimester (principal); Z3A.37 37 weeks gestation of pregnancy

== ENCOUNTER 2023-07-19 08:51 | Outpatient (CLI) | payer MEDICAID ==
[2023-07-19 09:09] VITALS: BP 118/80
--- NOTE | 2023-07-22 22:16 | PROCEDURE REPORT ---
- HPI Diagnosis/Indication for NST: Other (AMA) Vital Signs Temperature 98 F 07/19/23 08:58 Heart Rate 78 07/19/23 08:58 Respiratory Rate 16 07/19/23 08:58 Blood Pressure 118/80 07/19/23 08:58 Temperature 98 F 07/19/23 08:58 Heart Rate 78 07/19/23 08:58 Respiratory Rate 16 07/19/23 08:58 Blood Pressure 118/80 07/19/23 08:58 O2 Saturation If not protocol: Oxygen Flow, liters/minute - NST Procedure NST Procedure Start Date 07/19/23 Start Time 08:55 Stop Time 09:31 Vibroacoustic Stimulation Used No - Results and Plan Findings/Impression: Reactive for of 32 weeks gestation or more. NST tracing contains at least two heart rate accelerations that are at least 15 beats per minute above the baseline rate and lasting at least 15 seconds from onset to return to baseline within a twenty minute period. Plan: care as scheduled.
== END 2023-07-19 09:50 | disposition home or self-care (01) ==
LOC: WFO 08:51 → FBP 08:52 → WFO 09:50
PROVIDERS: ATTEND Obstetrics & Gynecology
DX: O99.213 Obesity complicating pregnancy, third trimester (principal); Z3A.00 Weeks of gestation of pregnancy not specified
CPT/HCPCS: 59025

== ENCOUNTER 2023-07-26 08:33 | Outpatient (CLI) | payer MEDICAID ==
--- NOTE | 2023-07-26 15:33 | Ultrasound Report ---
PROCEDURE: OB Limited INDICATIONS: OBESITY OUTSIDE/PRIOR DATING DATA: Last menstrual period (LMP): Unknown. LMP-based estimated date of delivery (SHAYY): Unknown. First dating scan (date and location): 12/21/2022. Estimated date of delivery (SHAYY) from first dating scan: 08/09/2023. The below data below was generated using the ultrasound SHAYY of 08/09/2023 TECHNIQUE: Real-time scanning was performed of the fetus, with image documentation. COMPARISON: OB ultrasound 07/19/2023 FINDINGS: A single living intrauterine gestation is present. Presentation: Vertex Placenta: Placental position is anterior, without previa. Amniotic fluid index: 20.9 cm, within normal limits for gestational age. Largest pocket 8.3 cm heart rate: 138 beats per minutes. Maternal cervical canal: 4.7 cm long; normal length is 2.5 cm or more. Estimated gestational age from initial scan: 38 weeks 0 days. Mild prominence of the adnexal vessels unchanged compared to prior exam. IMPRESSION: Single live intrauterine with gestational age of 38 weeks 0 days. SHITAL measures 20.9 cm. This is compared to 14.9 cm on prior exam. Recommend short interval follow-up g iven interval increase in SHITAL. Reviewed by: Priscila Espinoza MD on 07/26/2023 3:32 PM PDT Approved by: Priscila Espinoza MD on 07/26/2023 3:32 PM PDT Station ID: [id number]
== END 2023-07-26 08:34 | disposition home or self-care (01) ==
LOC: DI 08:33
PROVIDERS: ATTEND Obstetrics & Gynecology
DX: O99.213 Obesity complicating pregnancy, third trimester (principal); E66.9 Obesity, unspecified; Z3A.38 38 weeks gestation of pregnancy

== ENCOUNTER 2023-07-26 09:08 | Outpatient (CLI) | payer MEDICAID ==
[2023-07-26 09:31] VITALS: BP 110/75
--- NOTE | 2023-07-26 17:15 | PROCEDURE REPORT ---
- HPI Diagnosis/Indication for NST: Other (AMA) Current EDU 08/09/23 Gestation 38 Weeks and 0 Days 3 Para 2 Vital Signs Temperature 98.2 F 07/26/23 09:24 Heart Rate 87 07/26/23 09:24 Respiratory Rate 16 07/26/23 09:24 Blood Pressure 110/75 07/26/23 09:24 Temperature 98.2 F 07/26/23 09:24 Heart Rate 87 07/26/23 09:24 Respiratory Rate 16 07/26/23 09:24 Blood Pressure 110/75 07/26/23 09:24 O2 Saturation If not protocol: Oxygen Flow, liters/minute - NST Procedure NST Procedure Start Date 07/26/23 Start Time 09:22 Stop Time 09:48 Vibroacoustic Stimulation Used No Patient States Movement Yes - Results and Plan Findings/Impression: Reactive for of 32 weeks gestation or more. NST tracing contains at least two heart rate accelerations that are at least 15 beats per minute above the baseline rate and lasting at least 15 seconds from onset to return to baseline within a twenty minute period. Plan: as scheduled
== END 2023-07-26 09:55 | disposition home or self-care (01) ==
LOC: WFO 09:08 → FBP 09:16 → WFO 09:55
PROVIDERS: ATTEND Obstetrics & Gynecology
DX: O99.213 Obesity complicating pregnancy, third trimester (principal); Z3A.38 38 weeks gestation of pregnancy
CPT/HCPCS: 59025

== ENCOUNTER 2023-07-28 22:47 | Outpatient (CLI) | payer MEDICAID ==
--- NOTE | 2023-07-28 23:50 | PROVIDER PROGRESS NOTE ---
- HPI Chief Complaint: Decreased movement - Procedures OB Procedure Performed: NST Diagnosis/Indication for NST: Decreased movement Service Date of procedure: 07/28/23 (Read 07/28/23) - Plan Plan: Patient is a 37-year-old at 38 weeks 2 days gestation here for decreased movement. She has had two days of decreased movement and has been doing kick counts and have been less than usual. Denied leaking of bleeding. Occasional contraction. No headache, vision changes, right upper quadrant pain. Blood pressure 126/95 Pulse 91 O2 98 Physical Exam Constitutional: alert, no acute distress, well hydrated, well developed, well nourished, appropriate dress. Cardiovascular: Regular rate and rhythm. Respiratory: no respiratory distress. Abdomen: nondistended, nontender, no guarding. Psych: affect and mood appropriate, normal interaction, good eye contact. FHT: 125 beats per baseline, moderate variability, accelerations present, no decelerations. Reactive NST [place]: Irregular Bedside ultrasound SHITAL: 17.1 cm Assessment and plan Decreased movement: -[place] baby movement after arrival. Reactive NST. Normal SHITAL. -Discussed kick counts and when to come in. Labor and kick count precautions discussed prior to discharge. -Reassured after NST/ modified bpp, seeing and feeling movement. 38 weeks gestation -Routine care -Desires 39-week induction -Will schedule this week. Advanced maternal age -Continue with scheduled NSTs.
[2023-07-29 00:25] VITALS: BP 126/88
== END 2023-07-29 00:18 | disposition home or self-care (01) ==
LOC: WFO 22:47 → FBP 22:49 → WFO 07-29 00:18
PROVIDERS: ATTEND Obstetrics & Gynecology
DX: O36.8130 Decreased fetal movements, third trimester, not applicable or unspecified (principal); Z3A.38 38 weeks gestation of pregnancy
CPT/HCPCS: 59025; 99213

== ENCOUNTER 2023-08-02 08:00 | Inpatient (IN) | payer MEDICAID ==
[2023-08-02] MEDS ORDERED: LACTATED RINGERS 1,000 ML IV PRN (09:05)
[2023-08-02] MEDS ORDERED: OXYTOCIN 10 UNIT/ML VIAL IM PRN (10:42)
[2023-08-02] MEDS ORDERED: TERBUTALINE 1 MG/ML VIAL SUBQ PRN (10:42)
[2023-08-02] MEDS ORDERED: fentaNYL 100 MCG/2 ML VIAL IVP PRN (10:42)
[2023-08-02] MEDS ORDERED: LABETALOL 20 MG/4 ML SYRINGE IVP PRN ×3 (10:42)
[2023-08-02] MEDS ORDERED: OXYTOCIN/SODIUM CHLORIDE 500 ML IV PRN (10:42)
[2023-08-02] MEDS ORDERED: CARBOPROST TROMETHAMINE 250 MCG/ML VIAL IM PRN (10:42)
[2023-08-02] MEDS ORDERED: miSOPROStoL 200 MCG TABLET BC PRN (10:42)
[2023-08-02] MEDS ORDERED: miSOPROStoL 200 MCG TABLET PR PRN (10:42)
[2023-08-02] MEDS ORDERED: METHYLERGONOVINE 0.2 MG/ML VIAL IM PRN (10:42)
[2023-08-02] MEDS ORDERED: TRANEXAMIC ACID IN NACL 1,000 MG/100 ML BAG IV PRN (10:42)
[2023-08-02] MEDS ORDERED: hydrALAZINE INJ 20 MG/ML VIAL IVP PRN ×2 (10:42)
[2023-08-02] MEDS ORDERED: NIFEdipine 10 MG CAPSULE PO PRN (10:42)
[2023-08-02] MEDS ORDERED: lidocaine 1% 20 ML MDV ID PRN (10:42)
[2023-08-02 10:57] LABS: BASOPHILS % (AUTO) 0.4 %; EOSINOPHILS % (AUTO) 0.5 %; HCT - HEMATOCRIT 31.6 % (37.0-47.0); HGB - HEMOGLOBIN 10.2 g/dL (12.0-16.0); LYMPHOCYTES # (AUTO) 1.7 10^3/uL (1.5-3.5); LYMPHOCYTES % (AUTO) 20.7 %; MEAN CORPUSCULAR HEMOGLOBIN 27.3 pg (27.0-31.0); MEAN CORPUSCULAR HGB CONC 32.3 g/dL (32.0-36.0); MEAN CORPUSCULAR VOLUME 84.7 fL (81.0-99.0); MEAN PLATELET VOLUME 10.3 fL (7.9-10.8); MONOCYTES # (AUTO) 0.6 10^3/uL (0.0-1.0); MONOCYTES % (AUTO) 7.2 %; NEUTROPHILS # (AUTO) 5.8 10^3/uL (1.5-6.6); NEUTROPHILS % (AUTO) 70.2 %; PLT - PLATELET COUNT 257 10^3/uL (130-450); RED BLOOD COUNT 3.73 10^6/uL (4.20-5.40); RED CELL DISTRIBUTION WIDTH 13.9 % (12.0-15.0); WHITE BLOOD COUNT 8.2 x10^3/uL (4.8-10.8)
[2023-08-02] MEDS: miSOPROStoL 100 MCG TABLET VG SCH (11:12)
--- NOTE | 2023-08-02 15:37 | PHARMACY PROGRESS NOTE ---
- Best Possible Medication History Admit Date and Time: 08/02/23 1042 Processed by: Pharmacy Medications reviewed in ED?: No Medication History completed: Yes Patient Interview: Pt unable to participate As the person ultimately responsible for medication therapy, providers are able to order a medication from an existing home medication list in [facility] via the "Reconcile Routine" prior to Confirmation of that medication by application support analyst. Such practice is discouraged except when the physician, in their clinical judgment, deems that a medical need exists for a medication without regard to previous use.
[2023-08-02] MEDS: LACTATED RINGERS 1,000 ML IV SCH (20:45)
[2023-08-02] MEDS: OXYTOCIN/SODIUM CHLORIDE 500 ML IV SCH (20:48)
--- NOTE | 2023-08-02 20:53 | HISTORY & PHYSICAL EXAMINATION ---
Admit History - Visit Reason Visit Reason: Other (here for labor induction at term. elective) - Care: positive: [facility] Smoking Status: Never smoker - Other Maternal History Other Maternal History: here for labor induction at 39 weeks. last ultrasound 07/25 with SHITAL of 20 prior: EFW 3175 g, 64th percentile. AC: 80th percentile.on 07/18. last office visit: HPI: Patient presents today for her f/u at 38+5 ...................................................................Noris Dangelo ASHLEY July 31, 2023 10:37 AM. Allergies: Allergies Reviewed: Done No Known Allergies Medications: Meds Reviewed: Done * BREAST PUMP ([employer] DEVICES) Double electric breast pump with breast pump kit. sig: pump each breast as needed Dx: Z39.1 Lactating Mother JAMSHID: 5 years * PRE- FORMULA TABS ( [id number]) Take 1 tablet by mouth once a day Problems: Maternal care for excessive growth, third trimester, not applicable or unspecified (ICD-766.1) (LAF00-R98.63x0) Undesired fertility (ICD-V25.9) (LBC54-P59.9) Abnormal glucose tolerance in (ICD-648.83) (LDQ74-J43.810) Supervision of elderly multigravida, third trimester (ICD-V23.82) (ICD10- O09.523) Obesity, BMI 30-34.9, adult (ICD-278.00) (CLY15-S67.9) Abfnd Pap smear HPV DNA (ICD-079.4) (WNS05-V37.4) Human papilloma virus infection (ICD-079.4) (JXR66-M94.7) History of cervical dysplasia (ICD-V13.29) (RGC52-B28.410) Depression- irritable (ICD-311) (UXE77-S85.9) BHAVIK, adult (mild) (ICD-327.23) (BRE64-R88.33) Past Medical History: Abnormal pap smear w/colposcopy and LEEP Past Surgical History: LEEP Patient Profile: 37 Years Old Female Height: 68 inches Weight: 229.9 pounds BMI: 35.08 BP sittin / 72 Vitals Entered By: Noris Pierson LPN (July 31, 2023 10:42 AM) Flowsheet View for Follow-up Visit Estimated weeks of gestation: 38 5/7 Weight: 229.9 Blood pressure: 124 / 72 Headache: No Nausea/vomiting: No Edema: TrLE FHR: + Vaginal bleeding: no Vaginal discharge: no activity: dec Labor symptoms: no Taking vits? Y Smoking: n/a Next visit: 1 wk Comment: induction in 2 days. very ready. discussed. 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 partner Rob but will be involved. Obesity [ ] NSTs at 36 weeks. Anticipated weight gain 11 to 20 pounds [ ] EFW at 32/36 weeks. Pre- Weight: 224.8 BMI: 34.30 Blood type: A+ Antibody: Negative CBC: PLT:342 HCT: 37.8 HGB: 12.2 RUB: 17 VZV: Immune HBsAg: Negative HepC: NR RPR/AB-EIA: NR HIV: NR PAP:05/13/20 NILM HR HPV positive GC/CT: 10 Negative HSV:denies self and partner Genetic testing: NIPT normal AFP normal. Covid:vacc x2 before , declines now. Flu:01/01/23 FAS: 04/06/2023 Placenta: Anterior Cord: 3 VC SHITAL: 15.7cm EFW: 593.2g 95%tile 07/19/23- 3175g 64% AC 80% 50gm OGCT: 142. 3HR GTT: F 86, 1hr 142, 2hr 144, 3hr 132 06/07/23 : A1C 5.6 TDAP:05/23 Breast Pump:05/23 3rd trimester PLT 257 H/H 9.8/30.7 4/8- H/H 10.7/33.2 plt 288 GBS:Negative @ 35+4 Delivery plan: . Contraception: very sure sterilization. papers 04/25/23. Gender ID Identifies as Female P: 3 T: 3 A: 3 SAB: 3 L: 3 LMP: EDC: 08/09/2023 Height: 68 (07/18/2023 11:27:22 AM) Weight: 229.9 Weight (pre-): 224.8 (12/13/2022 1:36:36 PM) Gonnorhea: Neg (05/13/2020 12:54:30 PM) Chlamydia: NEGATIVE (01/01/2023 2:40:00 PM) Urine Tox: Neg (04/23/2020 3:10:42 PM) Group B: NEGATIVE (07/09/2023 8:25:00 PM) Blood Type: A+ (01/04/2023 3:32:03 PM) RH Type: + (01/04/2023 3:32:04 PM) Last Antibody Screen: negative (01/04/2023 3:32:05 PM) Feeding Breast pump given? Yes Is pt sexually active? yes Gonnorrhea: Neg (05/13/2020 12:54:30 PM) Chlamydia: NEGATIVE (01/01/2023 2:40:00 PM) HIV: negative (05/13/2020 10:01:51 AM) RPR: Non Reactive (01/04/2023 11:03:00 AM) Last Pap: Normal (01/30/2023 11:50:14 AM) Next pap due: 05/13/2021 (05/22/2020 12:53:51 PM) History of yes Last Colpo: Normal colposcopic findings (02/16/2023 1:13:50 PM) Last ECC: Tissue insufficient for diagnosis (mucus and inflammatory cells only) (10/20/2019 8:29:28 AM) - [facility] Diagnosis/Indication for NST: Other (prior to induction) Current EDU 08/09/23 Gestation 39 Weeks and 0 Days 7 Vital Signs Temperature 98.1 F 08/02/23 08:19 Heart Rate 80 08/02/23 08:19 Respiratory Rate 16 08/02/23 08:19 Blood Pressure 127/71 08/02/23 08:19 Temperature 98.1 F 08/02/23 08:19 Heart Rate 80 08/02/23 08:19 Respiratory Rate 16 08/02/23 08:19 Blood Pressure 127/71 08/02/23 08:19 O2 Saturation If not protocol: Oxygen Flow, liters/minute - NST Procedure NST Procedure Start Time 23:30 Stop Time 23:57 - Results and Plan Findings/Impression: Reactive for of 32 weeks gestation or more. NST tracing contains at least two heart rate accelerations that are at least 15 beats per minute above the baseline rate and lasting at least 15 seconds from onset to return to baseline within a twenty minute period. Plan: proceed with misoprostol for induction Meds/Allgy - Home Medications Home Medications: Ambulatory Orders Medication Instructions Recorded Confirmed Home Medications Unobtainable 08/02/23 08/02/23 [HOME MEDICATIONS UNOBTAINABLE] - Allergies Allergies/Adverse Reactions: Allergies Allergy/AdvReac Type Severity Reaction Status Date / Time No Known Drug Allergies Allergy Verified 01/25/23 08:58 Review of Systems - Constitutional Constitutional: reports: Fatigue. denies: Fever - Cardiovascular Cariovascular: denies: Irregular heart rate - Respiratory Respiratory: denies: SOB at rest Physical - Abdominal Exam Vital Signs: Temp Pulse Resp BP Pulse Ox O2 Flow Rate 98.1 F 80 16 127/71 08/02/23 08:19 08/02/23 08:19 08/02/23 08:19 08/02/23 08:19 Contraction Frequency (min/apart): on admit no contractions Contraction Intensity: positive: Irritability Uterine Resting Tone: positive: Soft - Monitoring Strip Review: positive: Category I - Presentation Presentation: positive: Vertex - Vaginal Exam Membranes: positive: Membranes intact Dilation (in cm): unable to reach Station: positive: -3 Cervical Position: positive: Posterior Plan for Labor - Plan For Labor I expect patient to be DC'd or transferred within 96 hours.: Yes Plan for Labor: term at 39w. here for labor induction. will start with miso. process reviewed. consent form reviewed and signed.
--- NOTE | 2023-08-02 20:59 | PROVIDER PROGRESS NOTE ---
Labor Progress Note - Uterine Monitoring Uterine Monitoring Mode: positive: External toco Contraction Frequency (min/apart): q2-3 Contraction Intensity: positive: Moderate Uterine Resting Tone: positive: Soft - Monitoring Monitor Mode: positive: External ultrasound Heart Rate Variability: positive: Moderate (6-25 bmp) Accelerations: positive: Present, 15x15 Decelerations: positive: None Strip Review: positive: Category I - Vaginal Exam Dilation (in cm): still can't reach Cervical Position: Posterior - Labor Progress Note Labor Progress Note/Additional Text: pretty uncomfortable with frequent contractions. Feels like she is starting labor. will just let her continue on. recheck about 8 pm.
--- NOTE | 2023-08-02 21:02 | PROVIDER PROGRESS NOTE ---
Labor Progress Note - Uterine Monitoring Uterine Monitoring Mode: positive: External toco Contraction Frequency (min/apart): irreg, some q2-3 then space q 5 Contraction Intensity: positive: Mild to moderate Uterine Resting Tone: positive: Soft - Monitoring Monitor Mode: positive: External ultrasound Heart Rate Variability: positive: Moderate (6-25 bmp) Accelerations: positive: Present, 15x15 Decelerations: positive: None Strip Review: positive: Category I - Vaginal Exam Dilation (in cm): deferred as she did not feel that had made change. - Labor Progress Note Labor Progress Note/Additional Text: contractions not as strong as they were before. options discussed. could go home, or start pitocin. pateint wants pitocin. hard to not have epidural as she gets more tired and as she has pitocin. She voices understanding.
[2023-08-03] MEDS: fentaNYL 100 MCG/2 ML VIAL IVP SCH (07:00)
[2023-08-03] MEDS: SODIUM CHLORIDE FLUSH 0.9% 10 ML SYRINGE IVP SCH (08:35)
--- NOTE | 2023-08-03 08:47 | PROVIDER PROGRESS NOTE ---
Labor Progress Note - Uterine Monitoring Uterine Monitoring Mode: positive: External toco Contraction Frequency (min/apart): q3 Contraction Intensity: positive: Mild to moderate Uterine Resting Tone: positive: Soft - Monitoring Monitor Mode: positive: External ultrasound Heart Rate Variability: positive: Moderate (6-25 bmp) Accelerations: positive: Present, 15x15 Decelerations: positive: None Strip Review: positive: Category I - Vaginal Exam Dilation (in cm): 2 Effacement (%): 70 Station: Ballotable Cervical Position: Posterior - Labor Progress Note Labor Progress Note/Additional Text: pitocin was up to 18. still not in labor. discussed options with patient. agrees to placement of cook catheter after ex planation. offered Fentanyl or nitrous for placement. would like fentanyl. pitocin turned down to 10 mu/min at 7 am and Fentanyl 100 mcg given iv. I waited about 20 min. patient did not feel any effect from the fentanyl. Agrees to go forward with catheter placement. vaginal exam done. Cervix about 2 cm, still quite high and posterior. Able to pass catheter into cervix. filled with 80 cc of saline. vaginal balloon with 40 cc. placement checked after filling. patient tolerated this well. RN to turn up pitocin as appropriate. anticipate . does wish sterilization after delivery. Discussed we may not be able to do that during her admission. We will see.
[2023-08-03] MEDS ORDERED: LIDOCAINE 2%-EPI 1:100000 20 ML MDV ONE ×2 (13:33→14:20)
[2023-08-03] MEDS ORDERED: ROPIVACAINE 0.2% 200 MG/100 ML BAG EP ONE (13:33)
--- NOTE | 2023-08-03 13:50 | PROVIDER PROGRESS NOTE ---
Labor Progress Note - Uterine Monitoring Uterine Monitoring Mode: positive: External toco Contraction Frequency (min/apart): q3 Contraction Intensity: positive: Strong - Monitoring Monitor Mode: positive: External ultrasound Heart Rate Variability: positive: Moderate (6-25 bmp) Accelerations: positive: Present, 15x15 Decelerations: positive: Early, Variable, Intermittent (<50% x20 min) Strip Review: positive: Category I, Category II - Vaginal Exam Dilation (in cm): 6 Effacement (%): 80 Station: Ballotable - Labor Progress Note Labor Progress Note/Additional Text: very hard to assess cervix. very soft. head not well applied. baby having some decels and mom very painful. pitocin at 14 --> 7. discussed AROM with FSE. patient agrees. AROM done with FSE to monitor baby better. and help labor finish. clear fluid. FSE did not stay on baby. FHT back to cat 1. increase pitocin again as needed after 30 min
--- NOTE | 2023-08-03 14:06 | ANESTHESIA ---
Pre-Anesthesia VS, & Labs - Diagnosis labor pain - Procedure labor epidural Vital Signs: Temp Pulse Resp BP Pulse Ox O2 Flow Rate 36.7 C 80 16 127/71 08/02/23 08:19 08/02/23 08:19 08/02/23 08:19 08/02/23 08:19 Height: 5 ft 8 in Weight (kg): 104.281 kg Body Mass Index: 34.9 BMI Classification: Obese - NPO Other - Is Patient ?: Yes - Lab Results Current Lab Results: Laboratory Tests 08/02/23 09:20: WBC 8.2, RBC 3.73 L, Hgb 10.2 L, Hct 31.6 L, MCV 84.7, MCH 27.3, MCHC 32.3, RDW 13.9, Plt Count 257, MPV 10.3, Neut # (Auto) 5.8, Lymph # (Auto) 1.7, Lynn # (Auto) 0.6, Eos # (Auto) 0.0, Baso # (Auto) 0.0, Absolute Nucleated RBC 0.00, Nucleated RBC % 0.0 08/02/23 09:20: Blood Type A POSITIVE, Antibody Screen NEGATIVE Fish Bones: 08/02/23 09:20 Home Medications and Allergies Home Medications: Ambulatory Orders Home Medications Unobtainable [HOME MEDICATIONS UNOBTAINABLE] 08/02/23 Active Medications Carboprost Tromethamine (Carboprost Tromethamine 250 Mcg/Ml Vial) 250 mcg IM .ONCE PRN PRN Reason: Hemorrhage Fentanyl (Fentanyl 100 Mcg/2 Ml Vial) 50 mcg IVP Q1H PRN PRN Reason: Severe Pain (score 7-10) Hydralazine HCl (Hydralazine Inj 20 Mg/Ml Vial) 5 - 10 mg IVP Q20M PRN; Protocol PRN Reason: SBP> or= 160 OR DBP> or= 110 Hydralazine HCl (Hydralazine Inj 20 Mg/Ml Vial) 10 mg IVP .ONCE PRN; Protocol PRN Reason: SBP> or= 160 OR DBP> or= 110 Lactated Ringer's (Lr) 500 mls @ 999 mls/hr IV PRN PRN PRN Reason: PER PHYSICIAN ORDER Oxytocin/Sodium Chloride (Pitocin/Sodium Chloride) 500 mls @ 999 mls/hr IV PRN PRN; Protocol PRN Reason: POST- HEMORR PREVENTION Tranexamic Acid (Tranexamic 1,000 Mg/100ml-Nacl) 1,000 mg in 100 mls @ 600 mls/hr IV Q30M PRN PRN Reason: EBL >1200mL and within 3hr Oxytocin/Sodium Chloride (Pitocin/Sodium Chloride) 500 mls @ 2 mls/hr IV TITR [facility] Last Titration: 08/03/23 09:41 Dose: 14 milliunit/min, 14 mls/hr Lactated Ringer's (Lr) 1,000 mls @ 50 mls/hr IV .Q20H [facility] Last Admin: 08/02/23 20:45 Dose: 50 mls/hr Labetalol HCl (Labetalol 20 Mg/4 Ml Syringe) 20 - 80 mg IVP Q10M PRN; Protocol PRN Reason: SBP> or= 160 OR DBP> or= 110 Labetalol HCl (Labetalol 20 Mg/4 Ml Syringe) 20 mg IVP .ONCE PRN; Protocol PRN Reason: SBP> or= 160 OR DBP> or= 110 Labetalol HCl (Labetalol 20 Mg/4 Ml Syringe) 20 - 40 mg IVP Q10M PRN; Protocol PRN Reason: SBP> or= 160 OR DBP> or= 110 Lidocaine HCl (Lidocaine 1% 20 Ml Mdv) 20 ml ID .ONCE PRN PRN Reason: PERINEAL REPAIR Stop: 08/05/23 10:43 Methylergonovine Maleate (Methylergonovine 0.2 Mg/Ml Vial) 0.2 mg IM .ONCE PRN PRN Reason: Hemorrhage Misoprostol (Misoprostol 200 Mcg Tablet) 600 mcg BC .ONCE PRN PRN Reason: Hemorrhage Misoprostol (Misoprostol 200 Mcg Tablet) 800 mcg DE .ONCE PRN PRN Reason: Hemorrhage Nifedipine (Nifedipine 10 Mg Capsule) 10 - 20 mg PO Q20M PRN; Protocol PRN Reason: SBP> or= 160 OR DBP> or= 110 Oxytocin (Oxytocin 10 Unit/Ml Vial) 10 unit IM .ONCE PRN PRN Reason: Step One if no IV access. Sodium Chloride (Sodium Chloride Flush 0.9% 10 Ml Syringe) 10 ml IVP PRN PRN PRN Reason: NEEDED PER PROVIDER ORDERS Sodium Chloride (Sodium Chloride Flush 0.9% 10 Ml Syringe) 10 ml IVP Q8H [facility] Last Admin: 08/03/23 08:35 Dose: 10 ml Terbutaline Sulfate (Terbutaline 1 Mg/Ml Vial) 0.25 mg SUBQ .ONCE PRN PRN Reason: Tachystole Home Medications Unobtainable [HOME MEDICATIONS UNOBTAINABLE] 08/02/23 Allergies/Adverse Reactions: Allergies Allergy/AdvReac Type Severity Reaction Status Date / Time No Known Drug Allergies Allergy Verified 01/25/23 08:58 Anes History & Medical History - Anesthetic History Anesthesia Complications: reports: No previous complications Family history of Anesthesia Complications: Denies Family history of Malignant Hyperthermia: Denies - Medical History Cardiovascular: reports: None Pulmonary: reports: None Gastrointestinal: reports: None Urinary: reports: None Neuro: reports: None Musculoskeletal: reports: None Endocrine/Autoimmune: reports: None Blood Disorders: reports: None Skin: reports: Eczema Smoking Status: Never smoker Psychosocial: reports: No issues indicated Exam General: Alert, Oriented x3, Cooperative Dental: WNL Mouth Openin Fingerbreadth Neck Mobility: Normal Mallampati classification: II Thyromental Distance: 4-6 cm Respiratory: Lungs clear Cardiovascular: Regular rate Plan Anesthesia Type: Epidural Consent for Procedure(s) Verified and Reviewed: Yes Code Status: Attempt Resuscitation ASA classification: 2-Mild systemic disease Is this case an emergency?: No
[2023-08-03] MEDS ORDERED: ePHEDrine 50 MG/ML VIAL IVP ONE (14:20)
[2023-08-03] MEDS ORDERED: MORPHINE PF 5 MG/10 ML VIAL ONE (14:48)
[2023-08-03] MEDS: LACTATED RINGERS 1,000 ML IV ONE ×2 (14:49→15:29)
[2023-08-03] MEDS ORDERED: ceFAZolin 1 GM VIAL ONE (15:16)
[2023-08-03] MEDS ORDERED: SODIUM CHLORIDE 0.9% 10 ML VIAL IVP ONE (15:16)
[2023-08-03] MEDS ORDERED: ATROPINE ABBOJECT 1 MG/10 ML SYRINGE IVP PRN (15:19)
[2023-08-03] MEDS ORDERED: ONDANSETRON 4 MG/2 ML VIAL IVP PRN ×2 (15:19→16:02)
[2023-08-03] MEDS ORDERED: fentaNYL 100 MCG/2 ML VIAL IVP PRN (15:19)
[2023-08-03] MEDS ORDERED: NALOXONE 0.4 MG/ML VIAL IVP PRN ×2 (15:19→16:02)
[2023-08-03] MEDS ORDERED: HYDROmorphone 0.5 MG/0.5 ML SYRINGE IVP PRN (15:19)
[2023-08-03] MEDS ORDERED: MORPHINE 2 MG/ML CARPUJECT IVP PRN (15:19)
--- NOTE | 2023-08-03 15:46 | XRAY Report ---
PROCEDURE: Abdomen 1 V INDICATIONS: EMERGENT , RETAINED INSTRUMENTS TECHNIQUE: One view of the abdomen acquired. COMPARISON: None. FINDINGS: Surgical changes and devices: A metal wire is seen projecting on the left side suggest clinical corre lation. Bowel: Bowel gas pattern is nonobstructive. No gross free air or radiopaque foreign bodies. Soft tissues: No suspicious abdominal calcifications. Visualized solid organ contours appear normal in size. Bones: No suspicious bony lesions. IMPRESSION: A wire is seen on left side of lower chest and abdomen suggest clinical correlation. No other radiopa que foreign bodies. Reviewed by: Asa Puente MD on 08/03/2023 3:45 PM PDT Approved by: Asa Puente MD on 08/03/2023 3:45 PM PDT Station ID: [id number]
[2023-08-03] MEDS ORDERED: LACTATED RINGERS 1,000 ML IV SCH (16:00)
[2023-08-03] MEDS ORDERED: OXYTOCIN/SODIUM CHLORIDE 500 ML IV PRN (16:02)
[2023-08-03] MEDS ORDERED: METOCLOPRAMIDE 10 MG/2 ML VIAL IVP PRN (16:02)
[2023-08-03] MEDS ORDERED: CALCIUM CARBONATE CHEW 500 MG TABLET PO PRN (16:02)
--- NOTE | 2023-08-03 16:09 | OPERATIVE REPORT ---
Operative Report - General Admit Date: 08/02/23 Procedure Date: 08/03/23 Planned Procedure: delivery of baby by c section emergently for distress, bilateral salpingectomies Pre-Op Diagnosis: intolerance to labor, undesired future fertility Procedure Performed: as above Post Op Diagnosis: same - Procedure Note Primary Surgeon: Petrona Vila MD Secondary Surgeon: Radha Michele MD Anesthesia Provider: Cara Prieto CRNA Anesthesia Technique: Epidural Pathology: none IV Fluids (mL): 500 Estimated Blood Loss (mL): 300 Urine Output (mL): 200 (clear yellow) Indications: Term having elective induction of labor. going slowly. hours of painful contractions. baby hard to monitor and having some decels. AROM done. Baby started having more decels and then terminal bradycardia for many minutes with scalp electrode on. tried to get patient to hands and knees, tried to push past her floppy cervix but nothing happened. bp was not low after recent epidural placement. vaginal exam with no palpable cord, about 8 cm but cervix floppy and baby's head still very high. decision made to proceed with c section urgently. Findings: live female with Apgars for 8/9. cord gas 7.18/7.2. placenta appeared pale and quickly but cord was robust and full of blood like normal. tubes and ovaries appeared normal. uterus appeared normal. Complications: none - Other Other Information/Narrative: Procedure: Low Transverse Section. Procedure Details The risks, benefits, complications, treatment options, and expected outcomes were discussed with the patient. The patient concurred with the proposed plan, giving informed consent. The patient was taken to the Operating Room, identified, and 2 grams of Cefazolin were given. She had sequential compression devices on her lower extremities. Jiang catheter was placed. recently placed epidural was able to be dosed adequately. A Time Out was held and the above information confirmed. The patient was prepped in the urgent sterile manner with betadine splash. This was dried off. Drapes were placed. Anesthesia was tested and found to be adequate. A Pfannenstiel incision was made and carried down through the subcutaneous tissue to the fascia. Fascial incision was made and extended transversely. The fascia was from the underlying rectus tissue superiorly and inferiorly. The peritoneum was identified and entered. Peritoneal incision was stretched. The Mp retractor was placed and rolled down. The uterus was palpated to examine lie. A low transverse uterine incision was made. The incision was stretched manually. Bag of water was entered during the process and fluid was clear. The baby's head was elevated through the incision. The baby was delivered and brought up towards her chest to show mom. Baby was vigorous from time of . Baby was born 11.5 minutes from when c section was called. Baby was dried and stimulated. I waited for 1 minute to clamp the cord. The cord was robust. Placenta seemed to separate right away. After the umbilical cord was clamped and cut, cord blood was obtained for evaluation. The placenta was removed intact using gentle traction and appeared normal, but pale. The uterine outline, tubes and ovaries appeared normal. The uterine incision was closed with running locked 0 Monocryl suture. A second horizontal imbricating layer was placed with the same suture. Hemostasis was observed. The fallopian tubes were identified. I checked with Florencese again to confirm that she wanted a sterilization procedure. She confirmed that she did. The small Ligasure was used to remove the fallopian tubes. These will not be sent to pathology as they looked normal and are able to be identified clearly. Patient agrees. The Mp retractor was removed. Rectus muscles were examined carefully for bleeding. The fascia was then reapproximated with running sutures of 0 Vicryl. The subcutaneous tissue was brought together with 3.0 Vicryl suture and the skin was closed with 3.0 Monocryl in subcuticular fascia. Wide steri strip was placed over the wound. Bandage was placed. Uterus was expressed. Fundus was firm. Patient was then brought back to her room in stable condition. Instrument, sponge, and needle counts were correct prior the abdominal closure and at the conclusion of the case. My licensed investment sales assistant was scrubbed and present during the entire procedure and assisted with visualization, hemostasis, fundal pressure for delivery, and closure. Drains: Jiang catheter to gravity Complications: None; patient tolerated the procedure well. Condition: stable Plan: Routine post op care
[2023-08-03 16:19] VITALS: O2SAT 99
[2023-08-03] MEDS: KETOROLAC 30 MG/ML VIAL ONE (16:24)
--- NOTE | 2023-08-03 16:48 | ANESTHESIA POST OP EVALUATION ---
Anesthesia Post Eval - Post Anesthesia Eval Vitals: Last Vital Signs Temp 36.6 C 08/03/23 16:14 Pulse 79 08/03/23 16:14 Resp 14 08/03/23 16:14 BP 102/55 L 08/03/23 16:14 Pulse Ox 99 08/03/23 16:14 O2 Flow Rate CV Function Including HR & BP: Stable Pain Control: Satisfactory Nausea & Vomiting: Negative Mental Status: Baseline Respiratory Status: Airway Patent Hydration Status: Satisfactory Anesthesia Complications: None
--- NOTE | 2023-08-03 16:48 | HISTORY & PHYSICAL EXAMINATION ---
HPI - Admitted From Admitted from: OB - History Obtained From History obtained from: Patient - History of Present Illness HPI Comment/Other: Patient in process of induction with decels and then bradycardia. Recommend urgent c section. 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, Miscarriage(s) : positive: None HEENT: positive: None Psych: positive: None Musculoskeletal: positive: None Derm: positive: Eczema MRSA Hx?: No Social & Family Hx - Social History Does the pt smoke?: No Smoking Status: Never smoker Does the pt drink ETOH?: No Does the pt have substance abuse?: No - POLST Patient has POLST: No Meds/Allgy - Home Medications Home Medications: Ambulatory Orders Medication Instructions Recorded Confirmed Home Medications Unobtainable 08/02/23 08/02/23 [HOME MEDICATIONS UNOBTAINABLE] - Allergies Allergies/Adverse Reactions: Allergies Allergy/AdvReac Type Severity Reaction Status Date / Time No Known Drug Allergies Allergy Verified 01/25/23 08:58 Exam - Vital Signs Vital Signs: Vital Signs x48h Temp Pulse Resp BP Pulse Ox 08/03/23 16:14 97.9 F 79 14 102/55 L 99 08/03/23 16:10 77 14 92/58 L 96 08/03/23 16:05 81 13 106/59 L 100 08/03/23 16:00 82 18 102/58 L 98 08/03/23 15:54 80 13 101/57 L 97 08/03/23 15:49 97.2 F L 82 12 101/55 L 100 08/03/23 15:44 85 19 106/50 L 98 08/03/23 15:39 84 19 83/46 L 100 08/03/23 15:35 86 20 84/61 L 99 08/03/23 15:30 85 20 95/44 L 99 08/03/23 15:29 97.5 F L 87 14 95/44 L 99 Results - Lab Results Fish Bones: 08/02/23 09:20 Impression/Plan - Problem List Problem List: intolerance to labor. recommend urgent c section. patient and FOB agree. still wishes sterilization. patient moved urgently to OR.
[2023-08-03] MEDS: ACETAMINOPHEN 500 MG TABLET PO SCH (18:41)
[2023-08-03] MEDS ORDERED: NALBUPHINE 10 MG/ML AMP IVP ONE (21:04)
[2023-08-03] MEDS: DOCUSATE SODIUM 100 MG CAPSULE PO SCH (21:24)
[2023-08-03] MEDS: diphenhydrAMINE INJ 50 MG/ML VIAL IVP PRN (21:24)
[2023-08-03] MEDS: SODIUM CHLORIDE FLUSH 0.9% 10 ML SYRINGE IVP PRN (22:12)
[2023-08-03] MEDS: KETOROLAC 30 MG/ML VIAL IVP SCH (22:12)
[2023-08-04 06:34] LABS: HCT - HEMATOCRIT 28.5 % (37.0-47.0); MEAN CORPUSCULAR HEMOGLOBIN 27.4 pg (27.0-31.0); MEAN CORPUSCULAR HGB CONC 31.6 g/dL (32.0-36.0); MEAN CORPUSCULAR VOLUME 86.6 fL (81.0-99.0); MEAN PLATELET VOLUME 10.1 fL (7.9-10.8); RED BLOOD COUNT 3.29 10^6/uL (4.20-5.40); RED CELL DISTRIBUTION WIDTH 13.9 % (12.0-15.0); WHITE BLOOD COUNT 13.6 x10^3/uL (4.8-10.8)
[2023-08-04] MEDS: diphenhydrAMINE 25 MG CAPSULE PO PRN (08:56)
--- NOTE | 2023-08-04 10:22 | PROVIDER PROGRESS NOTE ---
Assessment/Plan - Current Meds Current Meds: Current Medications Generic Name Dose Route Start Last Admin Trade Name Freq PRN Reason Stop Dose Admin Acetaminophen 1,000 mg 08/03/23 17:00 08/04/23 02:40 Acetaminophen 500 Mg Tablet PO 1,000 mg Q8H ARE Administration Diphenhydramine HCl 25 mg 08/03/23 16:02 08/04/23 08:38 Diphenhydramine Inj 50 Mg/Ml Vial IVP 25 mg Q6H PRN Administration Allergy Symptoms Diphenhydramine HCl 25 mg 08/03/23 16:02 08/04/23 08:56 Diphenhydramine 25 Mg Capsule PO 25 mg Q6HR PRN Administration Allergy Symptoms Docusate Sodium 200 mg 08/03/23 21:00 08/03/23 21:24 Docusate Sodium 100 Mg Capsule PO 200 mg BID RAE Administration Sodium Chloride 10 ml 08/02/23 10:42 08/03/23 22:12 Sodium Chloride Flush 0.9% 10 Ml Syringe IVP 10 ml PRN PRN Administration NEEDED PER PROVIDER ORDERS Sodium Chloride 10 ml 08/02/23 11:00 08/03/23 22:12 Sodium Chloride Flush 0.9% 10 Ml Syringe IVP 10 ml Q8H RAE Administration - Lab Result Fish Bone Diagrams: 08/04/23 06:00 Objective Vital Signs: Vital Signs - 24 hr 08/03/23 08/03/23 08/03/23 15:29 15:30 15:35 Temperature 97.5 F L Heart Rate 87 85 86 Heart Rate [ Brachial] Respiratory 14 20 20 Rate Blood Pressure 95/44 L 95/44 L 84/61 L Blood Pressure [Right Brachial artery] O2 Saturation 99 99 99 08/03/23 08/03/23 08/03/23 15:39 15:44 15:49 Temperature 97.2 F L Heart Rate 84 85 82 Heart Rate [ Brachial] Respiratory 19 19 12 Rate Blood Pressure 83/46 L 106/50 L 101/55 L Blood Pressure [Right Brachial artery] O2 Saturation 100 98 100 08/03/23 08/03/23 08/03/23 15:54 16:00 16:05 Temperature Heart Rate 80 82 81 Heart Rate [ Brachial] Respiratory 13 18 13 Rate Blood Pressure 101/57 L 102/58 L 106/59 L Blood Pressure [Right Brachial artery] O2 Saturation 97 98 100 08/03/23 08/03/23 08/03/23 16:10 16:14 21:29 Temperature 97.9 F 96.8 F L Heart Rate 77 79 Heart Rate [ 87 Brachial] Respiratory 14 14 18 Rate Blood Pressure 92/58 L 102/55 L Blood Pressure 122/77 [Right Brachial artery] O2 Saturation 96 99 08/04/23 08/04/23 08/04/23 00:00 04:25 08:42 Temperature 98.1 F 97.9 F 97.3 F L Heart Rate Heart Rate [ 82 81 83 Brachial] Respiratory 17 18 16 Rate Blood Pressure Blood Pressure 117/78 98/69 113/76 [Right Brachial artery] O2 Saturation Oxygen O2 Source Room air I&O (Last 24 Hrs): Intake and Output Totals x24h 08/02/23 08/03/23 08/04/23 23:59 23:59 23:59 Intake Total 694.475 7663.767 Output Total 1800 300 Balance 756.383 -447.233 -300 - Results Results: Laboratory Results WBC 13.6 x10^3/uL (4.8-10.8) H 08/04/23 06:00 RBC 3.29 10^6/uL (4.20-5.40) L 08/04/23 06:00 Hgb 9.0 g/dL (12.0-16.0) L 08/04/23 06:00 Hct 28.5 % (37.0-47.0) L 08/04/23 06:00 MCV 86.6 fL (81.0-99.0) 08/04/23 06:00 MCH 27.4 pg (27.0-31.0) 08/04/23 06:00 MCHC 31.6 g/dL (32.0-36.0) L 08/04/23 06:00 RDW 13.9 % (12.0-15.0) 08/04/23 06:00 Plt Count 213 10^3/uL (130-450) 08/04/23 06:00 MPV 10.1 fL (7.9-10.8) 08/04/23 06:00 Neut # (Auto) 5.8 10^3/uL (1.5-6.6) 08/02/23 09:20 Lymph # (Auto) 1.7 10^3/uL (1.5-3.5) 08/02/23 09:20 [place] # (Auto) 0.6 10^3/uL (0.0-1.0) 08/02/23 09:20 Eos # (Auto) 0.0 10^3/uL (0.0-0.7) 08/02/23 09:20 Baso # (Auto) 0.0 10^3/uL (0.0-0.1) 08/02/23 09:20 Absolute Nucleated RBC 0.00 x10^3/uL 08/02/23 09:20 Nucleated RBC % 0.0 /100WBC 08/02/23 09:20 Blood Type A POSITIVE 08/02/23 09:20 Antibody Screen NEGATIVE 08/02/23 09:20 - Procedures Procedures: Procedures DELIVERY OF PRODUCTS OF CONCEPTION, EXTERNAL APPROACH (12/14/20) DRAINAGE OF AMNIOTIC FL, THERAP FROM POC, VIA OPENING (12/14/20) REPAIR PERINEUM SKIN, EXTERNAL APPROACH (12/14/20) ABX Reporting Has patient been on IV antibiotics over the past 48 hours?: No
--- NOTE | 2023-08-04 10:26 | PROVIDER PROGRESS NOTE ---
Subjective - Subjective Subjective: Struggling with pain control, only using toradol and tylenol for pain. When just lying in bed, pain 0, however, with coughing, moving, getting up pain is 7- 8/10. Lochia appropriate. Tolerated breakfast this morning without N/V. Jiang removed last night and she has voiding spontaneously this morning. She is . Denies dizziness, SOB. Objective - Vital Signs/Intake & Output Vital Signs: Vital Signs x48h Temp Pulse Resp BP 08/04/23 08:42 97.3 F L 83 16 113/76 08/04/23 04:25 97.9 F 81 18 98/69 Intake & Output: Intake & Output 08/01/23 08/02/23 08/03/23 08/04/23 23:59 23:59 23:59 23:59 Intake Total 380.893 9596.767 Output Total 1800 300 Balance 756.383 -447.233 -300 - Objective General Appearance: positive: No acute distress, Other ( infant.) Respiratory: positive: No respiratory distress Abdomen: positive: Other (soft, non-distended, appropriately TTP, no rebound/guarding. Bandage in place with some light seepage.) Extremities: positive: Other (No LE edema, no evidence of DVT) - Lab Results Fish Bones: 08/04/23 06:00 Other Labs: Lab Results x24hrs 08/04/23 Range/Units 06:00 WBC 13.6 H (4.8-10.8) x10^3/uL RBC 3.29 L (4.20-5.40) 10^6/uL Hgb 9.0 L (12.0-16.0) g/dL Hct 28.5 L (37.0-47.0) % MCV 86.6 (81.0-99.0) fL MCH 27.4 (27.0-31.0) pg MCHC 31.6 L (32.0-36.0) g/dL RDW 13.9 (12.0-15.0) % Plt Count 213 (130-450) 10^3/uL MPV 10.1 (7.9-10.8) fL Assessment/Plan - Problem List (1) S/P section Impression: Discussed pain control, encouraged use of oxycodone today if needed. Continue routine postoperative care. Discussed possible discharge home tomorrow if meeting postop milestones and baby ready for discharge.
[2023-08-04] MEDS: KETOROLAC 30 MG/ML VIAL IM STA (10:31)
[2023-08-04] MEDS: oxyCODONE 5 MG TABLET PO PRN (15:05)
[2023-08-04] MEDS: IBUPROFEN 600 MG TABLET PO SCH (17:04)
[2023-08-04] MEDS: SIMETHICONE CHEW 80 MG TABLET PO PRN (20:26)
--- NOTE | 2023-08-05 07:37 | DISCHARGE SUMMARY ---
"Discharge Summary Admit Date: 08/02/23 Discharge Date: 08/05/23 Discharging Provider: Radha Michele MD Code Status: Attempt Resuscitation Condition at Discharge: Good Discharge Disposition: 01 Home, Self Care - DIAGNOSES Admission Diagnoses: Elective IOL at 39wk - HOSPITAL COURSE Hospital Course: Gulshan presented for elective IOL at 39wks. She ultimately underwent emergent primary delivery with bilateral salpingectomy for intolerance of labor. delivery was uncomplicated with an EBL of 300cc. course uncomplicated. - ALLERGIES Allergies/Adverse Reactions: Allergies Allergy/AdvReac Type Severity Reaction Status Date / Time No Known Drug Allergies Allergy Verified 01/25/23 08:58 - MEDICATIONS Home Medications: Ambulatory Orders Medication Instructions Recorded Confirmed Acetaminophen [Tylenol] 650 mg PO Q4H PRN #30 tab 08/05/23 Ibuprofen [Motrin] 600 mg PO Q6H PRN #30 tab 08/05/23 Senna [Senokot] 8.6 mg PO DAILY PRN #30 tablet 08/05/23 oxyCODONE [Roxicodone] 5 mg PO Q4-6H PRN #20 tablet 08/05/23 Home Medications Other | Comments: Discussed resuming PNV with iron. - PHYSICAL EXAM AT DISCHARGE General Appearance: positive: No acute distress Respiratory: positive: No respiratory distress Abdomen: positive: Other (Soft, appropriately TTP, no reound/guarding. Bandage removed, incision dry and intact with steristrips in place. Fundus firm.) Extremities: positive: Other (No LE edema, no evidence of DVT) - LABS Result Diagrams: 08/04/23 06:00 - FOLLOW UP [facility]"
[2023-08-05 08:41] VITALS: BP 117/69
== END 2023-08-05 12:15 | disposition home or self-care (01) | DRG 784 ==
LOC: WFO 08:00 → FBP 08:01 → WFO 10:41 → FBP 10:42
PROVIDERS: ADMIT Obstetrics & Gynecology; ATTEND Obstetrics & Gynecology
PROC: 3E033VJ Introduction of Other Hormone into Peripheral Vein, Percutaneous Approach (ICD-10-PCS; 2023-08-02)
PROC: 3E0DXGC Introduction of Other Therapeutic Substance into Mouth and Pharynx, External Approach (ICD-10-PCS; 2023-08-02)
PROC: 0UB70ZZ Excision of Bilateral Fallopian Tubes, Open Approach (ICD-10-PCS; 2023-08-03)
PROC: 0U7C7ZZ Dilation of Cervix, Via Natural or Artificial Opening (ICD-10-PCS; 2023-08-03)
PROC: 10907ZC Drainage of Amniotic Fluid, Therapeutic from Products of Conception, Via Natural or Artificial Opening (ICD-10-PCS; 2023-08-03)
PROC: 10D00Z1 Extraction of Products of Conception, Low, Open Approach (ICD-10-PCS; principal; 2023-08-03 14:15)
DX: O76 Abnormality in fetal heart rate and rhythm complicating labor and delivery (principal); O99.354 Diseases of the nervous system complicating childbirth; G47.33 Obstructive sleep apnea (adult) (pediatric); O99.214 Obesity complicating childbirth; O99.814 Abnormal glucose complicating childbirth; Z3A.39 39 weeks gestation of pregnancy; Z37.0 Single live birth; Z30.2 Encounter for sterilization
CPT/HCPCS: 36415; 74018; 85025; 85027; 86850; 86900; 86901; A9270; J1200; J2274; J7120

== ENCOUNTER 2023-12-17 08:50 | Emergency (ER) | payer MEDICAID ==
--- NOTE | 2023-12-17 09:00 | ED Physician Documentation ---
History of Present Illness - Stated complaint Stated Complaint: LT ARM PX,MOVEMENT LIMITED - History obtained from History obtained from: Patient - Additonal information Additional information: She woke this morning with pain in the left arm. Seems to be focused in the left bicep and causing difficulty with range of motion at the elbow. There was no injury. Never had this before. She went to bed fine last night. She is breast-feeding. No fevers. PD PAST MEDICAL HISTORY - Past Medical History Cardiovascular: None Respiratory: None Neuro: None Endocrine/Autoimmune: None GI: None CLINICAL RESOURCE COORDINATOR: Other, Miscarriage(s) : None HEENT: None Psych: None Musculoskeletal: None Derm: Eczema - Past Surgical History Past Surgical History: No - Present Medications Home Medications: Ambulatory Orders Medication Instructions Recorded Confirmed Cyclobenzaprine [Flexeril] 10 mg PO TID PRN #20 tablet 12/17/23 - Allergies Allergies/Adverse Reactions: Allergies Allergy/AdvReac Type Severity Reaction Status Date / Time No Known Drug Allergies Allergy Verified 12/17/23 08:58 - Social History Does the pt smoke?: No Smoking Status: Never smoker Does the pt drink ETOH?: No Does the pt have substance abuse?: No - Immunizations Immunizations are current?: Yes - POLST Patient has POLST: No PD ED PE NORMAL - Vitals Vital signs reviewed: Yes - General General: Alert and oriented X 3, No acute distress - Extremities Extremities: Other (There is significant tenderness of the left lower bicep anteriorly. She is holding the arm in partial flexion, complete flexion and complete extension she is not able to do due to pain. The shoulder itself and the elbow are nontender. She has normal radial pulses. Normal sensation in the hand.) - Neuro Neuro: Alert and oriented X 3, Normal speech Results - Vitals Vitals: Vital Signs - 24 hr 12/17/23 12/17/23 08:58 09:54 Temperature 36.5 C Heart Rate 102 H 79 Respiratory 18 16 Rate Blood Pressure 132/88 H 125/78 O2 Saturation 99 99 Oxygen O2 Source Room air - Rads (name of study) Left humeral x-ray and Doppler ultrasound left upper extremity were normal/negative. Relevant Findings:: Final report received, EMP independent interpretation of test PD Medical Decision Making - ED course ED course: She presents with atraumatic bicipital pain on the left with limited range of motion. Seems muscular, but DVT or bony abnormality were considered but ruled out with x-ray and ultrasound. Departure - Departure Disposition: 01 Home, Self Care Clinical Impression: Pain in extremity Qualifiers: Extremity pain location: upper extremity Laterality: left Qualified Code(s): M79.602 - Pain in left arm Condition: Good Record reviewed to determine appropriate education?: Yes Instructions: ED Acute Pain [facility] Prescriptions: Cyclobenzaprine [Flexeril] 10 mg PO TID PRN #20 tablet PRN Reason: Spasms Comments: I sent your prescription electronically to the [facility] in [place]. Ultrasound to rule out blood clot and x-ray of the left humerus were negative. I suspect this is a muscle spasm. You can take Tylenol and/or ibuprofen in addition to the muscle relaxer. Follow-up with your doctor for recheck and return if not better over the next few days or anytime if worse. Forms: Activity restrictions Discharge Date/Time: 12/17/23 09:54
[2023-12-17 09:03] VITALS: O2SAT 99
[2023-12-17] MEDS: IBUPROFEN 800 MG TABLET PO STA (09:04)
--- NOTE | 2023-12-17 09:27 | XRAY Report ---
PROCEDURE: Humerus LT INDICATIONS: arm pain TECHNIQUE: 2 views of the humerus were acquired. COMPARISON: None. FINDINGS: Bones: No fractures or dislocations. No suspicious bony lesions. Soft tissues: No suspicious soft tissue calcifications or masses. IMPRESSION: No acute bony abnormality. Reviewed by: Abdulaziz Yancey MD on 12/17/2023 9:25 AM PDT Approved by: Abdulaziz Yancey MD on 12/17/2023 9:25 AM PDT Station ID: [id number]
--- NOTE | 2023-12-17 09:57 | Ultrasound Report ---
PROCEDURE: Duplex Ext Veins Left INDICATIONS: LUE pain TECHNIQUE: Real-time imaging, as well as color and pulse Doppler interrogation, were performed of the upper extr emity deep veins. COMPARISON: None. FINDINGS: The deep veins are normally compressible, and free of intraluminal thrombus. Color and pu lse Doppler demonstrate normal phasic intraluminal flow. There is normal augmentation response to di stal compression maneuver. IMPRESSION: No deep venous thrombosis of the visualized left upper extremity. Reviewed by: Asa Puente MD on 12/17/2023 9:56 AM PDT Approved by: Asa Puente MD on 12/17/2023 9:56 AM PDT Station ID: [id number]
[2023-12-17 10:01] VITALS: BP 125/78
== END 2023-12-17 09:54 | disposition home or self-care (01) ==
LOC: ED 08:50
DX: M79.602 Pain in left arm (principal)
CPT/HCPCS: 73060; 93971; 99283; 99284; A9270